=== PATIENT | male | born 1950 | race Caucasian/White ===

== ENCOUNTER → 2019-10-17 14:09 | Outpatient (CLI) | payer MEDICARE, BC, SELFPAY ==
[2019-10-17 15:57] LABS: Prostate Specific Ag, Diagnost 0 ng/mL (0.0-4.0)
== END ==
PROVIDERS: Visit Provider Urology
DX: C61 Malignant neoplasm of prostate (principal)
CPT/HCPCS: 36415; 84153

== ENCOUNTER → 2020-10-18 13:52 | Outpatient (CLI) | payer MEDICARE, BC, SELFPAY ==
[2020-10-18 15:54] LABS: Prostate Specific Ag, Diagnost < 0.064 ng/ml (0.0-4.0)
== END ==
PROVIDERS: Visit Provider Urology
DX: C61 Malignant neoplasm of prostate (principal)
CPT/HCPCS: 36415; 84153

== ENCOUNTER 2024-08-03 09:52 | Outpatient (POV) | payer MEDICARE, BC, SELFPAY ==
[2024-08-03 10:08] VITALS: BP 130/75; PULSE 62; RESP 18; O2SAT 96; BMI 30.6
--- NOTE | 2024-08-03 12:14 | EXP.PAIN.OV ---
HPI Data of Consult Patient: new to practice Consult date: 08/03/24 Requesting Physician: Stormy Canas APRN Primary Care Provider: Referral Provider, MD Consult Narrative Reason for consult: Neck pain, low back pain, leg pain, bilateral feet pain History of present illness: Mr. Benítez is a 74 year old male who presents today as a new patient. He is a referral from [facility]. Today he rates his pain a 7 out of 10. Patient does state that he has multiple pain areas including his neck and low back with radiating symptoms down his bilateral lower extremities and significant severe neuropathy symptoms in his bilateral feet. Patient states all of this has been going on for years and progressively worsened over time. Patient has been seeing the center medical director for longer than 5 years and that they did recommend to come here for additional interventions. Patient states that his bones do seem to break at the slightest injury. He states that in the past he fractured his left foot 3 times within a close proximity to 1 another. He states initially part was an injury where he fell in a hole that then he is also fractured it with just walking. Patient does state that he has a lot of injuries in the past from his service and that he has had multiple surgeries including his left knee replaced as well as had some injections. He states his last ones were about 3 years ago for his legs and knees and that they did provide significant relief and have still really been helping his knees for the last 4 years. Patient does state between all of his aches and pains that he does have the most pain related to his feet. He states that he cannot tolerate any little pressure or the simplest activity really bothers them. He states that clothing even affects them. He states that he frequently walks on his heel due to the pain. He states it is just very intense. He does state this interferes with his ability perform activities of daily living such as cooking and cleaning. 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 Patient has been tried on gabapentin and tramadol in the past however could not tolerate the gabapentin and is now on Lyrica.Patient does state that these were done by the center medical director and states that they did tell him that they could not do the scheduled medications anymore and that whether or not we could possibly take over these. Patient is interested in any help we may be able to provide. He has tried conservative treatment including oral medications, heat and ice, topicals, continued at home stretching exercise for longer than 12 weeks. His Shawn has been reviewed and is appropriate. CC: Stormy Canas APRN [facility] Disclaimer: The information contained in this section may have been updated after the patient was seen, as this information can be updated by other users. 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 (Updated 08/03/24 @ 12:19 by Stormy Canas APRN) Parkinson disease Bladder stone Peripheral neuropathy Arthritis Surgical History History of total replacement of right shoulder joint H/O thumb surgery H/O hand surgery H/O elbow surgery H/O shoulder surgery Hx of appendectomy Family History (Updated 08/03/24 @ 10:12 by Liberty Escudero RN) Other Cancer Gout Social History (Updated 08/03/24 @ 10:32 by Liberty Escudero RN) Smoking Status: Former smoker tobacco type: pipe alcohol intake: former substance use type: denies use current occupational status: retired Travel in the last 8 weeks: None household members: spouse housing: house Review of Systems Review of Systems Review of systems:: pertinent systems reviewed and negative unless documented below Review of systems (narrative): Review of Systems: General: No recent weight changes, no fever, no sleep disturbances Respiratory: No cough, no shortness of air, no recurring pulmonary infections Cardiovascular/peripheral vascular: No chest pain, no palpitations, no edema, no shortness of breath Gastrointestinal: No new onset incontinence, normal bowel movements reported Genitourinary: No new onset incontinence Musculoskeletal: Low back pain, leg pain, bilateral feet pain Psychiatric: [Normal mood/affect] Neurological: [Denies weakness in extremities], [denies balance issues] Meds Home Medications and Allergies Home Medications ?Medication ?Instructions ?Recorded ?Confirmed ?Type aspirin 81 mg tablet,delayed 81 mg PO DAILY 10/17/19 10/18/21 History release (Adult Aspirin Regimen) carbidopa ER 61.25 mg-levodopa 245 2 cap PO TID PARKINSONS 08/03/24 08/03/24 History mg capsule,extended release (Rytary) celecoxib 100 mg capsule 100 mg PO DAILY Pain 08/03/24 08/03/24 History pregabalin 75 mg capsule 75 mg PO BID Pain 08/03/24 08/03/24 History tamsulosin 0.4 mg capsule 0.4 mg PO BID URINATION 08/03/24 08/03/24 History New Prescriptions to Start Prescriptions: Allergies Allergy/AdvReac Type Severity Reaction Status Date / Time No Known Allergies Allergy Verified 10/18/21 13:18 Objective Vital signs: Pulse Resp BP Pulse Ox O2 Del Method 62 18 130/75 96 Room Air 08/03/24 10:08 08/03/24 10:08 08/03/24 10:08 08/03/24 10:08 08/03/24 10:08 Narrative: Physical Exam: General: Alert and oriented x3, no acute distress, pleasant and cooperative Lungs: Respirations even and unlabored, symmetrical chest expansion Eyes: PERRL Musculoskeletal: Flexion and extension of bilateral feet/ankles somewhat guarded secondary to pain, [antalgic gait noted] patient had decreased sensation to light touch and decreased reflexes Neurological: Speech clear, no gross sensory deficit Assessment and Plan *Assessment and plan (1) Degenerative disc disease, lumbar: Status: Acute Category: Medical Code(s): M51.369 - Other intervertebral disc degeneration, lumbar region without mention of lumbar back pain or lower extremity pain (2) Lumbar radiculopathy: Status: Acute Category: Medical Code(s): M54.16 - Radiculopathy, lumbar region (3) Neck pain: Status: Acute Category: Medical Code(s): M54.2 - Cervicalgia (4) Peripheral neuropathy: Status: Acute Category: Medical Code(s): G62.9 - Polyneuropathy, unspecified Plan Patient is experiencing significant pain related to his peripheral neuropathy in his ankles and feet. Patient did have decreased sensation light touch and decreased reflexes. I did discuss with patient that he may benefit from bilateral posterior tibial nerve blocks. Risk and benefits were discussed with patient and he would like to proceed forward with this plan of care. Patient has tried and failed conservative therapy including continued at home stretching exercise for longer than 12 weeks. 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 We will send in a 3-month supply of pregabalin 75 mg twice daily. Patient will be scheduled for bilateral posterior tibial nerve blocks.\ Patient has been instructed to contact the clinic with any concerns before the next appointment. Dr. Lopez has reviewed this note and agrees with this plan of care. This note was dictated using voice recognition software and make contain errors or omissions. All injections are used with Lidocaine or Bupivacaine and Depo Medrol.
== END 2024-08-03 23:59 | disposition home or self-care (01) ==
PROVIDERS: Visit Provider Nurse Practitioner Family
DX: M54.2 Cervicalgia; G62.9 Polyneuropathy, unspecified; M51.16 Intervertebral disc disorders with radiculopathy, lumbar region; Z96.652 Presence of left artificial knee joint; Z73.89 Other problems related to life management difficulty; Z96.611 Presence of right artificial shoulder joint; Z87.891 Personal history of nicotine dependence
CPT/HCPCS: 99202; G0463

== ENCOUNTER 2024-09-06 10:15 | Day surgery (SDC) | payer MEDICARE, BC, SELFPAY ==
[2024-09-06 10:33] VITALS: BP 123/79; PULSE 76; RESP 16; TEMP 36.4; O2SAT 96; BMI 30.3
[2024-09-06] MEDS: LIDOCAINE 1% 5ML PF VIAL 5 ML (10:53)
[2024-09-06 10:54] VITALS: BP 130/75; PULSE 77; RESP 18; O2SAT 97
[2024-09-06] MEDS: BUPIVACAINE 0.25% 10ML INJ 25 MG IJ (10:54)
[2024-09-06] MEDS: methylPREDNISolone ACETATE 80MG/ML VIAL 80 MG (10:54)
[2024-09-06 10:57] VITALS: BP 130/75; PULSE 78; RESP 18; O2SAT 97
--- NOTE | 2024-09-06 11:05 | EXP.PAIN.PRO ---
Procedure Date: 09/06/24 Time: 11:00 Anesthesiologist:: Alex Landin CRNA Complications:: None Pre-procedure Diagnosis:: Bilateral foot pain. Post-procedure Diagnosis:: Same. Indications for Procedure:: Patient is a pleasant 74-year-old male who comes our clinic today for bilateral posterior tibial nerve blocks. Patient has a longstanding history of lower extremity pain including bilateral knee pain, as well as bilateral feet pain. Patient also was diagnosed with Parkinson's 3 years ago. He is ambulatory. However, he rates his pain 10/10 while standing. Procedure Details:: Details of procedure explained to the patient. The patient taken procedure and placed in the supine position on the fluoroscopy table. The area over the right lateral malleolus was cleansed using chlorhexidine as a cleansing solution. Using a 25-gauge inch and half needle. The right posterior tibial nerve was accessed with ease. After negative aspiration 4 cc of 1% lidocaine +40 mg of Depo-Medrol was injected. The same procedure was carried out over the left posterior tibial nerve. Patient tolerated procedure without difficulty. There are no complications Plan and Disposition:: Patient was discharged without incident.
[2024-09-06 11:06] VITALS: BP 115/75; PULSE 84; RESP 16; O2SAT 94
== END 2024-09-06 11:06 | disposition home or self-care (01) ==
PROVIDERS: PCP Family Medicine; Visit Provider Nurse Anesthetist, Certified Registered
DX: M79.672 Pain in left foot (principal); M79.671 Pain in right foot
CPT/HCPCS: 64450; J1010

== ENCOUNTER 2024-09-26 09:26 | Outpatient (POV) | payer MEDICARE, BC, SELFPAY ==
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
[2024-09-26 10:04] VITALS: BP 131/75; PULSE 89; RESP 14; O2SAT 99; BMI 53.4
== END 2024-09-26 23:59 | disposition home or self-care (01) ==
PROVIDERS: Visit Provider Nurse Practitioner Family
DX: M54.2 Cervicalgia (principal); G62.9 Polyneuropathy, unspecified; M51.16 Intervertebral disc disorders with radiculopathy, lumbar region; Z87.891 Personal history of nicotine dependence; Z73.89 Other problems related to life management difficulty
CPT/HCPCS: 99212; G0463

== ENCOUNTER 2024-10-18 12:46 | Day surgery (SDC) | payer MEDICARE, SELFPAY ==
[2024-10-18 13:05] VITALS: BP 137/89; PULSE 108; RESP 16; TEMP 36.6; O2SAT 95
[2024-10-18] MEDS: methylPREDNISolone ACETATE 80MG/ML VIAL 80 MG (13:15)
[2024-10-18 13:42] VITALS: BP 148/58; PULSE 94; RESP 16; O2SAT 97
--- NOTE | 2024-10-18 13:49 | EXP.PAIN.PRO ---
Procedure Date: 10/18/24 Time: 13:20 Anesthesiologist:: Alex Landin CRNA Complications:: None Pre-procedure Diagnosis:: Degenerative disc lumbar spine multilevels. Lumbar radiculopathy. Disc bulge lumbar spine L3-4, L4-5. Post-procedure Diagnosis:: Same. Indications for Procedure:: Patient is a pleasant 74-year-old male who comes our clinic today for lumbar epidural steroid injection at the L3-4 level. Patient describes low lumbar back pain as constant, dull, aching. Patient also reports bilateral leg radicular symptoms. He rates his pain today 6/10. Procedure Details:: Procedure: Lumbar epidural steroid injection under fluoroscopy Informed consent was obtained and the risks and benefits of the procedure were explained to the patient. The patient was taken to the procedure room and noninvasive monitors placed, including noninvasive blood pressure cuff and pulse oximeter. The back was viewed using C-arm Fluoroscopy and prepped using Chloraprep as a cleansing solution and the L3-4 interspace was palpated. Skin and subcutaneous tissues were anesthetized using lidocaine 1.5% and a 25-gauge needle. After this, an 18-gauge Touhy epidural needle was placed into the L3-4 interspace and advanced using fluoroscopic guidance and loss of resistance to air until the epidural space was encountered. After confirmation of needle placement in the epidural space, with dye, a solution containing normal saline, 3 mL and Depo-Medrol 80 mg were incrementally injected into the lumbar epidural space. The patient tolerated the procedure well with no complications. The patient was observed in the Pain Clinic and then discharged home neurologically intact. Plan and Disposition:: Patient was discharged without incident.
== END 2024-10-18 13:42 | disposition home or self-care (01) ==
LOC: SC.PAINP 12:49
PROVIDERS: Visit Provider Nurse Anesthetist, Certified Registered
DX: M51.16 Intervertebral disc disorders with radiculopathy, lumbar region (principal)
CPT/HCPCS: 62323; J1010

== ENCOUNTER 2024-10-31 11:06 | Outpatient (POV) | payer MEDICARE, BC, SELFPAY ==
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
--- NOTE | 2024-10-31 11:58 | XR_ITS ---
FINAL REPORT CLINICAL HISTORY: LBP FINDINGS: LUMBAR SPINE 5 views were obtained. There is no acute fracture. Vertebrae are normal height. There is no malalignment. There is moderate to space narrowing from L2-3 through L5-S1. There is prominent anterior osteophyte formation from L2-3 through L5-S1. There is no soft tissue abnormality. IMPRESSION: Advanced degenerative disc disease from L2-3 through L5-S1. Reviewed, Interpreted and Dictated by Uday Longo MD Transcribed by Tanya Garcia Authenticated and [facility]
[2024-10-31 13:31] VITALS: BP 103/77; PULSE 105; RESP 16; O2SAT 97
== END 2024-10-31 23:59 | disposition home or self-care (01) ==
PROVIDERS: PCP Family Medicine; Visit Provider Nurse Practitioner Family
DX: M47.816 Spondylosis without myelopathy or radiculopathy, lumbar region (principal); M51.369 Other intervertebral disc degeneration, lumbar region without mention of lumbar back pain or lower extremity pain; Z96.611 Presence of right artificial shoulder joint; Z87.891 Personal history of nicotine dependence; Z73.89 Other problems related to life management difficulty
CPT/HCPCS: 72110; 99212; G0463

== ENCOUNTER 2024-11-15 09:03 | Day surgery (SDC) | payer MEDICARE, BC, SELFPAY ==
[2024-11-15 10:01] VITALS: BP 109/74; PULSE 95; RESP 16; TEMP 36.7; O2SAT 97; BMI 30.2
[2024-11-15 10:13] VITALS: BP 126/84; PULSE 63; RESP 16; O2SAT 97
--- NOTE | 2024-11-15 10:18 | P.PCN_ITS ---
Procedure Date: 11/15/24 Time: 10:00 Anesthesiologist:: Alex Landin CRNA Complications:: None Pre-procedure Diagnosis:: Degenerative disc lumbar spine multilevels. Lumbar radiculopathy. Lumbar spondylosis. Multilevel lumbar facet arthropathy. Post-procedure Diagnosis:: Same. Indications for Procedure:: Patient is a very pleasant 74-year-old male who comes our clinic today for ROUND ONE lumbar medial branch blocks/facet injections at L2-3, L3-4 level. Patient describes low lumbar back pain as constant, dull, aching. He rates his pain 8/10. Procedure Details:: Informed consent was obtained and the risk and benefits of the procedure was explained to the patient. Patient was taken to the procedure room where noninvasive monitors were placed, including noninvasive blood pressure cuff as well as pulse oximeter. The area over the lumbar spine was cleansed using chlorhexidine as a cleansing solution. I anesthetized the skin and subcutaneous tissues with 1% Lidocaine. I placed 22-gauge spinal needles into the facet joint/ medial branches of L2-3, L3-4 bilaterally. Needle placement was confirmed with fluoroscopy. After confirmation of needle placement, each site was injected with 1 mL of 1% lidocaine and 0.25 % Marcaine and 10 mg of Depo-Medrol. A total of 80 mg of depo medrol was used for bilateral medial branch blocks of L2-3, L3- 4 bilaterally. Patient tolerated the procedure without difficulty. There were no complications. Plan and Disposition:: Patient was discharged without incident.
[2024-11-15] MEDS: LIDOCAINE 1% 5ML PF VIAL 5 ML (10:23)
[2024-11-15] MEDS: methylPREDNISolone ACETATE 80MG/ML VIAL 80 MG (10:26)
[2024-11-15] MEDS: BUPIVACAINE 0.25% 10ML INJ 25 MG IJ (10:26)
[2024-11-15 10:27] VITALS: BP 127/70; PULSE 96; RESP 18; O2SAT 98
[2024-11-15 10:33] VITALS: BP 127/70; PULSE 96; RESP 18; O2SAT 98
== END 2024-11-15 10:13 | disposition home or self-care (01) ==
PROVIDERS: PCP Family Medicine; Visit Provider Nurse Anesthetist, Certified Registered
DX: M47.816 Spondylosis without myelopathy or radiculopathy, lumbar region (principal); M51.360 Other intervertebral disc degeneration, lumbar region with discogenic back pain only
CPT/HCPCS: 64493; 64494; J1010

== ENCOUNTER 2024-11-28 14:15 | Outpatient (POV) | payer MEDICARE, BC, SELFPAY ==
[2024-11-28 14:32] VITALS: BP 124/60; PULSE 93; RESP 14; O2SAT 96; BMI 30.2
--- NOTE | 2024-11-28 14:47 | A.OFFVIS_ITS ---
[facility] Disclaimer: The information contained in this section may have been updated after the patient was seen, as this information can be updated by other users. 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 (Updated 11/28/24 @ 14:51 by Stormy Canas APRN) Parkinson disease Bladder stone Peripheral neuropathy Arthritis Surgical History History of total replacement of right shoulder joint H/O thumb surgery H/O hand surgery H/O elbow surgery H/O shoulder surgery Hx of appendectomy Family History Other Cancer Gout Social History Smoking Status: Former smoker tobacco type: pipe alcohol intake: former substance use type: denies use current occupational status: other Travel in the last 8 weeks: None household members: spouse housing: house PM Subjective & Objective Subjective Subjective:: Patient is a pleasant 74-year-old male who presents today for follow-up of lumbar branch block bilaterally L2-L3 and L3-L4 on 11/15/2024. Patient does rate his pain today a 4 or 5 out of 10. He does state that from our last appointment he has had surgery last week and is still having quite a bit of pain related to this procedure. He states that he is having a lot of pressure and some occasional sharp shooting pains. He is scheduled for follow-up with the eye doctor coming up this week and is scheduled to have his second cataracts surgery on the . Patient does state that his back is still bothering him more present on the right side into his muscles. He states that it is very hard for him to gauge how much improvement the injection did due to the eye pain and still trouble with certain movements such as bending. He does state that initially after the procedure he was sore for couple days however that did ease down and then had improvement. Patient has continued conservative treatment with minimal improvement. Patient does state that the last medication we sent in combination with the baclofen did seem to cause him urinary problems. He states that he just could not hold his bladder and had some incontinence. He states that he did discontinue taking the 2 medications together from then on. His Shawn has been reviewed and is appropriate. Review of Systems: General: No recent weight changes, no fever, no sleep disturbances Respiratory: No cough, no shortness of air, no recurring pulmonary infections Cardiovascular/peripheral vascular: No chest pain, no palpitations, no edema, no shortness of breath Gastrointestinal: No new onset incontinence, normal bowel movements reported Genitourinary: No new onset incontinence Musculoskeletal: Right-sided low back pain Psychiatric: [Normal mood/affect] Neurological: [Denies weakness in extremities], [denies balance issues] Pain at rest (0-10 scale): 5 Objective Objective:: Physical Exam: General: Alert and oriented x3, no acute distress, pleasant and cooperative Lungs: Respirations even and unlabored, symmetrical chest expansion Eyes: PERRL Musculoskeletal: Flexion and extension of lumbar [spine] somewhat guarded secondary to pain, [antalgic gait noted] point tenderness along the right lumbar paraspinous muscles Neurological: Speech clear, no gross sensory deficit Has patient had previous pain injection?: Yes Percent improvement in pain since last injection: Patient unable to get percentage today Conservative treatment options previously tried: Home exercise plan Length of treatment: Longer than 12 weeks Meds Home Medications and Allergies Home Medications ?Medication ?Instructions ?Recorded ?Confirmed ?Type aspirin 81 mg tablet,delayed 81 mg PO DAILY 10/17/19 11/28/24 History release (Adult Aspirin Regimen) carbidopa ER 61.25 mg-levodopa 245 2 cap PO TID PARKINSONS 08/03/24 11/28/24 History mg capsule,extended release (Rytary) celecoxib 100 mg capsule 100 mg PO DAILY Pain 08/03/24 11/28/24 History tamsulosin 0.4 mg capsule 0.4 mg PO BID URINATION 08/03/24 11/28/24 History baclofen 10 mg tablet 10 mg PO HS #30 tabs 10/31/24 11/28/24 Rx prednisone 20 mg tablet 20 mg PO BID #10 tabs 10/31/24 11/28/24 Rx pregabalin 75 mg capsule 75 mg PO BID Pain #180 caps 10/31/24 11/28/24 Rx New Prescriptions to Start Prescriptions: Allergies Allergy/AdvReac Type Severity Reaction Status Date / Time No Known Allergies Allergy Verified 10/18/21 13:18 Assessment and Plan *Assessment and plan (1) Myofascial pain on right side: Status: Acute Category: Medical Code(s): M79.18 - Myalgia, other site (2) Degenerative disc disease, lumbar: Status: Acute Category: Medical Code(s): M51.369 - Other intervertebral disc degeneration, lumbar region without mention of lumbar back pain or lower extremity pain Plan Patient is experiencing more significant pain along the right side of his low back with limited range of motion and point tenderness along his right lumbar paraspinous muscles. I did discuss with the patient that he may benefit from a trigger point injections all along this muscle group. Risk and benefits were discussed with patient and he would like to proceed forward with this plan of care. Patient has continued conservative treatment including oral medication, heat and ice, topicals, at home stretching exercise for longer than 12 weeks with minimal changes. Patient will be scheduled for trigger point injections of his right lumbar paraspinous muscles. These will be done without fluoroscopic guidance or ultrasound. Patient has been instructed to contact the clinic with any concerns before the next appointment. Dr. Lopez has reviewed this note and agrees with this plan of care. This note was dictated using voice recognition software and make contain errors or omissions. All injections are used with Lidocaine, Bupivacaine and Depo Medrol. Occasionally urine drug screen is needed to verify patient's compliance with our office pain contract. This is ordered based off specific treatments related to chronic pain with the potential to abuse certain medications.
== END 2024-11-28 23:59 | disposition home or self-care (01) ==
LOC: SC.PAIN 14:20
PROVIDERS: PCP Family Medicine; Visit Provider Nurse Practitioner Family
DX: M79.18 Myalgia, other site (principal); M51.369 Other intervertebral disc degeneration, lumbar region without mention of lumbar back pain or lower extremity pain; Z87.891 Personal history of nicotine dependence
CPT/HCPCS: 99212; G0463

== ENCOUNTER 2024-12-02 15:38 | Day surgery (SDC) | payer MEDICARE, BC, SELFPAY ==
--- NOTE | 2024-12-02 15:50 | EXP.PAIN.PRO ---
Procedure Date: 12/02/24 Time: 15:50 Anesthesiologist:: Stormy Canas APRN Complications:: None Pre-procedure Diagnosis:: Degenerative disc disease of lumbar spine with lumbar radiculopathy symptoms, neck pain, peripheral neuropathy, myofascial pain of the right side Post-procedure Diagnosis:: Same Indications for Procedure:: Patient is a pleasant 74-year-old male who presents today for injections of his right lumbar paraspinous muscles. Today he rates his pain a 4 or 5 out of 10. He denies any new trauma or injury. He does state that he is having pain into both sides of his low back muscles. Patient has tried and failed conservative therapy including continued at home stretching exercise for longer than 12 weeks. His Shawn has been reviewed and is appropriate. Physical Exam: General: Alert and oriented x3, no acute distress, pleasant and cooperative Lungs: Respirations even and unlabored, symmetrical chest expansion Eyes: PERRL Musculoskeletal: Flexion and extension of lumbar [spine] somewhat guarded secondary to pain, [antalgic gait noted] point tenderness along bilateral lumbar paraspinous muscles Neurological: Speech clear, no gross sensory deficit Procedure Details:: Patient did have noninvasive blood pressure cuff applied and pulse oximeter. Patient was placed in a sitting position and palpated along his bilateral trapezius and rhomboid muscles. The skin was cleansed with isopropyl alcohol and areas of point tenderness were marked and using a sterile 25-gauge needle approximately 10 mL of 0. 2 5% bupivacaine, 1% lidocaine and 80 mg Depo-Medrol were incrementally injected into his bilateral lumbar paraspinous muscles. Needle was removed and sterile bandages applied. Patient tolerated the procedure well with no complications and was discharged neurologically intact. Plan and Disposition:: Patient tolerated the procedure well with no complications and was discharged neurologically intact. Patient did end up having tenderness on both his left and right lumbar paraspinous muscles. We did inject bilaterally and update the consent. Patient will return to clinic in 2 weeks for reevaluation of symptoms and plan of care. Patient has been instructed to contact the clinic with any concerns before the next appointment. Dr. Lopez has reviewed this note and agrees with this plan of care. This note was dictated using voice recognition software and make contain errors or omissions. All injections are used with Lidocaine, Bupivacaine and Depo Medrol. Occasionally urine drug screen is needed to verify patient's compliance with our office pain contract. This is ordered based off specific treatments related to chronic pain with the potential to abuse certain medications.
[2024-12-02 15:52] VITALS: BP 136/92; PULSE 79; RESP 16; TEMP 36.9; O2SAT 98; BMI 30.2
[2024-12-02 16:09] VITALS: BP 135/68; PULSE 67; RESP 16; O2SAT 93
[2024-12-02] MEDS: methylPREDNISolone ACETATE 80MG/ML VIAL 80 MG (16:57)
[2024-12-02] MEDS: LIDOCAINE 1% 5ML PF VIAL 5 ML (16:57)
[2024-12-02] MEDS: BUPIVACAINE 0.25% 10ML INJ 25 MG IJ (16:57)
== END 2024-12-02 16:09 | disposition home or self-care (01) ==
PROVIDERS: PCP Family Medicine; Visit Provider Nurse Practitioner Family
DX: M51.16 Intervertebral disc disorders with radiculopathy, lumbar region (principal); M54.2 Cervicalgia; G62.9 Polyneuropathy, unspecified; M79.18 Myalgia, other site
CPT/HCPCS: 20553; J1010

== ENCOUNTER 2024-12-14 13:52 | Outpatient (POV) | payer MEDICARE, BC, SELFPAY ==
[2024-12-14 14:15] VITALS: BP 137/82; PULSE 80; RESP 16; O2SAT 98; BMI 30.2
--- NOTE | 2024-12-14 14:21 | A.OFFVIS_ITS ---
[facility] Disclaimer: The information contained in this section may have been updated after the patient was seen, as this information can be updated by other users. 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 Parkinson disease Bladder stone Peripheral neuropathy Arthritis Surgical History History of total replacement of right shoulder joint H/O thumb surgery H/O hand surgery H/O elbow surgery H/O shoulder surgery Hx of appendectomy Family History Other Cancer Gout Social History Smoking Status: Former smoker tobacco type: pipe alcohol intake: former substance use type: denies use current occupational status: other Travel in the last 8 weeks: None household members: spouse housing: house PM Subjective & Objective Subjective Subjective:: Patient is a pleasant 74-year-old male who presents today for follow-up of trigger point injections of his right lumbar paraspinous muscles. Today he rates his pain a 4 out of 10. He states that he did take about 3 days for the injections to really kick in and he states he had probably 40% but he is writing more about 20% currently ongoing improvement. He states that the sharp pain sensations has gone away and that he is now just: It is a dull ache that is very manageable and feels much better. He does state that he ended up having his other cataracts surgery last Thursday and everything went well with it. He denies any other changes. His Shawn has been reviewed and is appropriate. Review of Systems: General: No recent weight changes, no fever, no sleep disturbances Respiratory: No cough, no shortness of air, no recurring pulmonary infections Cardiovascular/peripheral vascular: No chest pain, no palpitations, no edema, no shortness of breath Gastrointestinal: No new onset incontinence, normal bowel movements reported Genitourinary: No new onset incontinence Musculoskeletal: Low back pain Psychiatric: [Normal mood/affect] Neurological: [Denies weakness in extremities], [denies balance issues] Pain at rest (0-10 scale): 4 Objective Objective:: Physical Exam: General: Alert and oriented x3, no acute distress, pleasant and cooperative Lungs: Respirations even and unlabored, symmetrical chest expansion Eyes: PERRL Musculoskeletal: Flexion and extension of lumbar [spine] somewhat guarded secondary to pain, [antalgic gait noted] Neurological: Speech clear, no gross sensory deficit Has patient had previous pain injection?: Yes Percent improvement in pain since last injection: 40% Conservative treatment options previously tried: Home exercise plan Length of treatment: Longer than 12 weeks Meds Home Medications and Allergies Home Medications ?Medication ?Instructions ?Recorded ?Confirmed ?Type aspirin 81 mg tablet,delayed 81 mg PO DAILY 10/17/19 12/14/24 History release (Adult Aspirin Regimen) carbidopa ER 61.25 mg-levodopa 245 2 cap PO TID PARKINSONS 08/03/24 12/14/24 History mg capsule,extended release (Rytary) celecoxib 100 mg capsule 100 mg PO DAILY Pain 08/03/24 12/14/24 History tamsulosin 0.4 mg capsule 0.4 mg PO BID URINATION 08/03/24 12/14/24 History baclofen 10 mg tablet 10 mg PO HS #30 tabs 10/31/24 12/14/24 Rx prednisone 20 mg tablet 20 mg PO BID #10 tabs 10/31/24 12/14/24 Rx pregabalin 75 mg capsule 75 mg PO BID Pain #180 caps 10/31/24 12/14/24 Rx New Prescriptions to Start Prescriptions: Allergies Allergy/AdvReac Type Severity Reaction Status Date / Time No Known Allergies Allergy Verified 10/18/21 13:18 Assessment and Plan *Assessment and plan (1) Myofascial pain on right side: Status: Acute Category: Medical Code(s): M79.18 - Myalgia, other site (2) Lumbar facet arthropathy: Status: Acute Category: Medical Code(s): M47.816 - Spondylosis without myelopathy or radiculopathy, lumbar region (3) Degenerative disc disease, lumbar: Status: Acute Category: Medical Code(s): M51.369 - Other intervertebral disc degeneration, lumbar region without mention of lumbar back pain or lower extremity pain Plan Patient has had significant improvement following his trigger point injections and is no longer experiencing the sharp sudden pain there in his low back. Patient is much more manageable and feels overall more functional. Patient will return to clinic in 1 month. Patient has been instructed to contact the clinic with any concerns before the next appointment. Dr. Lopez has reviewed this note and agrees with this plan of care. This note was dictated using voice recognition software and make contain errors or omissions. All injections are used with Lidocaine, Bupivacaine and Depo Medrol. Occasionally urine drug screen is needed to verify patient's compliance with our office pain contract. This is ordered based off specific treatments related to chronic pain with the potential to abuse certain medications.
== END 2024-12-14 23:59 | disposition home or self-care (01) ==
LOC: SC.PAIN 13:56
PROVIDERS: Visit Provider Nurse Practitioner Family
DX: M79.18 Myalgia, other site (principal); M47.816 Spondylosis without myelopathy or radiculopathy, lumbar region; M51.369 Other intervertebral disc degeneration, lumbar region without mention of lumbar back pain or lower extremity pain; Z96.611 Presence of right artificial shoulder joint; Z87.891 Personal history of nicotine dependence
CPT/HCPCS: 99212; G0463

== ENCOUNTER 2024-12-19 14:19 | Outpatient (POV) | payer MEDICARE, BC, SELFPAY ==
--- NOTE | 2024-12-19 14:36 | A.OFFVIS_ITS ---
[facility] Disclaimer: The information contained in this section may have been updated after the patient was seen, as this information can be updated by other users. 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 (Updated 12/19/24 @ 14:38 by Stormy Canas APRN) Parkinson disease Bladder stone Peripheral neuropathy Arthritis Surgical History History of total replacement of right shoulder joint H/O thumb surgery H/O hand surgery H/O elbow surgery H/O shoulder surgery Hx of appendectomy Family History Other Cancer Gout Social History Smoking Status: Former smoker tobacco type: pipe alcohol intake: former substance use type: denies use current occupational status: other Travel in the last 8 weeks: None household members: spouse housing: house Have you lived/traveled outside [place] in past 30 days?: No Contact w/someone who lives/traveled outside [place] past 30 days?: No Exposure to someone with infectious disease in past 14 days?: No Do you have a fever (greater than 100.4 F or 38 C)?: No Have you tested positive for COVID-19: No Exposed to someone with COVID-19 in past 14 days?: No Do you have a sore throat?: No Do you have a cough?: No Do you have any weakness?: No Do you have any diarrhea?: No Are you experiencing any unusual bleeding?: No Do you have any muscle aches/pain?: No Do you have any abdominal pain?: No Are you experiencing loss of taste or smell?: No PM Subjective & Objective Subjective Subjective:: Patient is a pleasant 74-year-old male who presents today due to worsening pain. He rates his pain a 9 out of 10. He states that on Thursday night he was working on a gate for his horses and that he ended up fixing the gate and walked away only to end up tripping on a roots or some other object in the ground. He states that he ended up trying to catch himself but hit himself in the face with his hand and landed on his abdomen. He states that he ended up having quite a bit of soreness and pain yesterday and today. His blood pressure is increased today and feels like that is related to the fall. Patient does not necessarily think that he is fractured or broken anything however feels like he may have just tensed up causing worsening back pain. Patient is complaining of overall back pain in general. Patient was tried on Celebrex and baclofen in the past. Patient states he did have his other cataract surgery and does not feel like his vision has been affected but states he did have a little dizziness but believes that it is related to him hitting himself in the face. His Shawn has been reviewed and is appropriate. Review of Systems: General: No recent weight changes, no fever, no sleep disturbances Respiratory: No cough, no shortness of air, no recurring pulmonary infections Cardiovascular/peripheral vascular: No chest pain, no palpitations, no edema, no shortness of breath Gastrointestinal: No new onset incontinence, normal bowel movements reported Genitourinary: No new onset incontinence Musculoskeletal: Low back pain Psychiatric: [Normal mood/affect] Neurological: [Denies weakness in extremities], [denies balance issues] Pain at rest (0-10 scale): 9 Objective Objective:: Physical Exam: General: Alert and oriented x3, no acute distress, pleasant and cooperative Lungs: Respirations even and unlabored, symmetrical chest expansion Eyes: PERRL Musculoskeletal: Flexion and extension of lumbar [spine] somewhat guarded secondary to pain, [antalgic gait noted] Neurological: Speech clear, no gross sensory deficit Has patient had previous pain injection?: No Conservative treatment options previously tried: Home exercise plan Length of treatment: Longer than 12 weeks Meds Home Medications and Allergies Home Medications ?Medication ?Instructions ?Recorded ?Confirmed ?Type aspirin 81 mg tablet,delayed 81 mg PO DAILY 10/17/19 12/14/24 History release (Adult Aspirin Regimen) carbidopa ER 61.25 mg-levodopa 245 2 cap PO TID PARKINSONS 08/03/24 12/14/24 History mg capsule,extended release (Rytary) celecoxib 100 mg capsule 100 mg PO DAILY Pain 08/03/24 12/14/24 History tamsulosin 0.4 mg capsule 0.4 mg PO BID URINATION 08/03/24 12/14/24 History baclofen 10 mg tablet 10 mg PO HS #30 tabs 10/31/24 12/14/24 Rx prednisone 20 mg tablet 20 mg PO BID #10 tabs 10/31/24 12/14/24 Rx pregabalin 75 mg capsule 75 mg PO BID Pain #180 caps 10/31/24 12/14/24 Rx New Prescriptions to Start Prescriptions: Allergies Allergy/AdvReac Type Severity Reaction Status Date / Time No Known Allergies Allergy Verified 10/18/21 13:18 Assessment and Plan *Assessment and plan (1) Low back pain: Status: Acute Category: Medical Code(s): M54.50 - Low back pain, unspecified Plan I did discuss at length with the patient that I do believe it could just be more muscle tension related to him tensing up before his fall. I have counseled him that we are still less than 72 hours out from his fall and that the pain should start to slowly improve. I did certified travel counselor him that I would like to see him back next week to confirm that the pain has gotten better and if not we will plan on ordering updated imaging. I will send in a 5-day dose of prednisone 20 mg twice daily and a 2-week dose of tizanidine 2 mg twice daily as needed. Patient agrees with this plan of care. Patient will follow-up with our office next week. Patient has been instructed to contact the clinic with any concerns before the next appointment. Dr. Lopez has reviewed this note and agrees with this plan of care. This note was dictated using voice recognition software and make contain errors or omissions. All injections are used with Lidocaine, Bupivacaine and Depo Medrol. Occasionally urine drug screen is needed to verify patient's compliance with our office pain contract. This is ordered based off specific treatments related to chronic pain with the potential to abuse certain medications.
[2024-12-19 15:58] VITALS: BP 140/90; PULSE 88; RESP 16; O2SAT 96; BMI 30.2
== END 2024-12-19 23:59 | disposition home or self-care (01) ==
PROVIDERS: PCP Neurological Surgery; Visit Provider Nurse Practitioner Family
DX: M54.50 Low back pain, unspecified (principal); Z96.611 Presence of right artificial shoulder joint; Z87.891 Personal history of nicotine dependence
CPT/HCPCS: 99212; G0463

== ENCOUNTER 2025-01-13 13:35 | Outpatient (POV) | payer MEDICARE, BC, SELFPAY ==
[2025-01-13 14:34] VITALS: BP 124/74; PULSE 78; RESP 14; O2SAT 96; BMI 30.3
--- NOTE | 2025-01-13 15:13 | EXP.PAIN.SOA ---
[facility] Disclaimer: The information contained in this section may have been updated after the patient was seen, as this information can be updated by other users. 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 Parkinson disease Bladder stone Peripheral neuropathy Arthritis Surgical History History of total replacement of right shoulder joint H/O thumb surgery H/O hand surgery H/O elbow surgery H/O shoulder surgery Hx of appendectomy Family History Other Cancer Gout Social History Smoking Status: Former smoker tobacco type: pipe alcohol intake: former substance use type: denies use current occupational status: other Travel in the last 8 weeks: None household members: spouse housing: house PM Subjective & Objective Subjective Subjective:: Patient is a pleasant 74-year-old male who presents today for follow-up. He does rate his pain at a 3 out of 10. Patient does state from the last time we saw him last month that he has been having to deal with bronchitis. He states that initially on Thursday last week he was having significant coughing however denied any fever. He states by Thursday it had progressively worsened and he felt like he could not breathe. He ultimately ended up coming in to the ER where he was experiencing hot flashes and ended up having a temperature almost 203. Patient states they do have him on a lot of medications for the bronchitis including inhalers. He states he is feeling a little bit better however is still having some related issues. He does state that he has not been using the medication we prescribed while he is taking the medication for the bronchitis. At our last visit he was given tizanidine 2 mg twice a day as needed. He does not recall any side effects. His Shawn has been reviewed and is appropriate. Review of Systems: General: No recent weight changes, no fever, no sleep disturbances Respiratory: No cough, no shortness of air, no recurring pulmonary infections Cardiovascular/peripheral vascular: No chest pain, no palpitations, no edema, no shortness of breath Gastrointestinal: No new onset incontinence, normal bowel movements reported Genitourinary: No new onset incontinence Musculoskeletal: Low back pain Psychiatric: [Normal mood/affect] Neurological: [Denies weakness in extremities], [denies balance issues] Pain at rest (0-10 scale): 3 Objective Objective:: Physical Exam: General: Alert and oriented x3, no acute distress, pleasant and cooperative Lungs: Respirations even and unlabored, symmetrical chest expansion Eyes: PERRL Musculoskeletal: Flexion and extension of lumbar [spine] somewhat guarded secondary to pain, [antalgic gait noted] Neurological: Speech clear, no gross sensory deficit Has patient had previous pain injection?: No Conservative treatment options previously tried: Home exercise plan Length of treatment: Longer than 12 weeks Meds Home Medications and Allergies Home Medications ?Medication ?Instructions ?Recorded ?Confirmed ?Type aspirin 81 mg tablet,delayed 81 mg PO DAILY 10/17/19 01/13/25 History release (Adult Aspirin Regimen) carbidopa ER 61.25 mg-levodopa 245 2 cap PO TID PARKINSONS 08/03/24 01/13/25 History mg capsule,extended release (Rytary) celecoxib 100 mg capsule 100 mg PO DAILY Pain 08/03/24 01/13/25 History tamsulosin 0.4 mg capsule 0.4 mg PO BID URINATION 08/03/24 01/13/25 History baclofen 10 mg tablet 10 mg PO HS #30 tabs 10/31/24 01/13/25 Rx prednisone 20 mg tablet 20 mg PO BID #10 tabs 10/31/24 01/13/25 Rx pregabalin 75 mg capsule 75 mg PO BID Pain #180 caps 10/31/24 01/13/25 Rx prednisone 20 mg tablet 20 mg PO BID #10 tabs 12/19/24 01/13/25 Rx tizanidine 2 mg tablet 2 mg PO BID #28 tabs 12/19/24 01/13/25 Rx New Prescriptions to Start Prescriptions: Allergies Allergy/AdvReac Type Severity Reaction Status Date / Time No Known Allergies Allergy Verified 10/18/21 13:18 Assessment and Plan *Assessment and plan (1) Low back pain: Status: Acute Category: Medical Code(s): M54.50 - Low back pain, unspecified (2) Myofascial pain on right side: Status: Acute Category: Medical Code(s): M79.18 - Myalgia, other site (3) Lumbar facet arthropathy: Status: Acute Category: Medical Code(s): M47.816 - Spondylosis without myelopathy or radiculopathy, lumbar region Plan Patient was counseled that we will wait until he is completely done with his medications related to the bronchitis. Patient was counseled that if he starts experiencing worsening pain and needs to see us sooner to feel free to call us and let us know. Patient will return to clinic in 1 month. Patient has been instructed to contact the clinic with any concerns before the next appointment. Dr. Lopez has reviewed this note and agrees with this plan of care. This note was dictated using voice recognition software and make contain errors or omissions. All injections are used with Lidocaine, Bupivacaine and Depo Medrol. Occasionally urine drug screen is needed to verify patient's compliance with our office pain contract. This is ordered based off specific treatments related to chronic pain with the potential to abuse certain medications.
== END 2025-01-13 23:59 | disposition home or self-care (01) ==
LOC: SC.PAIN 13:38
PROVIDERS: Visit Provider Nurse Practitioner Family
DX: M54.50 Low back pain, unspecified (principal); M79.18 Myalgia, other site; M47.816 Spondylosis without myelopathy or radiculopathy, lumbar region; Z87.891 Personal history of nicotine dependence
CPT/HCPCS: 99212; G0463

== ENCOUNTER 2025-02-10 14:01 | Outpatient (POV) | payer MEDICARE, BC, SELFPAY ==
[2025-02-10 14:12] VITALS: BP 126/68; PULSE 82; RESP 16; O2SAT 95; BMI 31.1
--- NOTE | 2025-02-10 14:49 | EXP.PAIN.SOA ---
[facility] Disclaimer: The information contained in this section may have been updated after the patient was seen, as this information can be updated by other users. 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 (Updated 02/10/25 @ 14:51 by Stormy Canas APRN) Parkinson disease Bladder stone Peripheral neuropathy Arthritis Surgical History History of total replacement of right shoulder joint H/O thumb surgery H/O hand surgery H/O elbow surgery H/O shoulder surgery Hx of appendectomy Family History Other Cancer Gout Social History Smoking Status: Former smoker tobacco type: pipe alcohol intake: former substance use type: denies use current occupational status: other Travel in the last 8 weeks?: None household members: spouse housing: house PM Subjective & Objective Subjective Subjective:: Patient is a pleasant 67-year-old male who ended up being a lumbar epidural steroid junction L4-L5 patient is a pleasant 74-year-old male who presents today for worsening low back pain. 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 Patient does state that it is all across to his low back but does also come in and around his upper shoulder blade area. Patient does state that upper pain is worse than the low back and does interfere with his ability perform activities of daily living such as cooking and cleaning. Patient is interested in options for this pain. He is prescribed tizanidine 2 mg twice a day as needed however states he does not have any refills on this. His Shawn has been reviewed and is appropriate. Review of Systems: General: No recent weight changes, no fever, no sleep disturbances Respiratory: No cough, no shortness of air, no recurring pulmonary infections Cardiovascular/peripheral vascular: No chest pain, no palpitations, no edema, no shortness of breath Gastrointestinal: No new onset incontinence, normal bowel movements reported Genitourinary: No new onset incontinence Musculoskeletal: Low back pain, mid back pain, scapular pain Psychiatric: [Normal mood/affect] Neurological: [Denies weakness in extremities], [denies balance issues] Pain at rest (0-10 scale): 6 Objective Objective:: Physical Exam: General: Alert and oriented x3, no acute distress, pleasant and cooperative Lungs: Respirations even and unlabored, symmetrical chest expansion Eyes: PERRL Musculoskeletal: Flexion and extension of thoracic [spine] somewhat guarded secondary to pain, [antalgic gait noted] point tenderness along thoracic rhomboid and thoracic paraspinous/latissimus muscles bilaterally, patient did also have a positive lumbar Kemps test Neurological: Speech clear, no gross sensory deficit Has patient had previous pain injection?: No Conservative treatment options previously tried: Home exercise plan Length of treatment: Longer than 12 weeks Meds Home Medications and Allergies Home Medications ?Medication ?Instructions ?Recorded ?Confirmed ?Type celecoxib 100 mg capsule 100 mg PO DAILY Pain 08/03/24 02/10/25 History tamsulosin 0.4 mg capsule 0.4 mg PO BID URINATION 08/03/24 02/10/25 History tizanidine 2 mg tablet 2 mg PO BID #28 tabs 12/19/24 02/10/25 Rx carbidopa ER 61.25 mg-levodopa 245 2 cap PO TID PARKINSONS #540 caps 01/17/25 02/10/25 Rx mg capsule,extended release (Rytary) pregabalin 75 mg capsule 75 mg PO BID #180 caps 02/06/25 02/10/25 Rx New Prescriptions to Start Prescriptions: Allergies Allergy/AdvReac Type Severity Reaction Status Date / Time aspirin (From [facility] Aspirin) Allergy Verified 01/17/25 13:20 Assessment and Plan *Assessment and plan (1) Myofascial pain: Status: Acute Category: Medical Code(s): M79.18 - Myalgia, other site (2) Lumbar facet arthropathy: Status: Acute Category: Medical Code(s): M47.816 - Spondylosis without myelopathy or radiculopathy, lumbar region (3) Degenerative disc disease, lumbar: Status: Acute Category: Medical Code(s): M51.369 - Other intervertebral disc degeneration, lumbar region without mention of lumbar back pain or lower extremity pain Plan I did discuss with the patient that he does have symptoms consistent with myofascial pain and would benefit from trigger point injections of his bilateral rhomboid and bilateral thoracic paraspinous muscles. Risk and benefits were discussed with the patient and he would like to proceed forward with this plan of care. Patient will be refilled on his tizanidine and also be given a prescription of lidocaine 5% patches. Patient will be scheduled for trigger point injections of his bilateral rhomboid and bilateral thoracic paraspinous/latissimus muscles. Patient has tried and failed conservative therapy including oral medications, heat and ice, topicals, at home exercises and stretching for longer than 12 weeks. Patient has had chronic pain in these areas for longer than 6 months. I did also discussed with patient in future we will see about possible facet injections at a later time if he continues to have the low back pain. Patient agrees with this plan of care. Patient has been instructed to contact the clinic with any concerns before the next appointment. Dr. Lopez has reviewed this note and agrees with this plan of care. This note was dictated using voice recognition software and make contain errors or omissions. All injections are used with Lidocaine, Bupivacaine and dexamethasone. Occasionally urine drug screen is needed to verify patient's compliance with our office pain contract. This is ordered based off specific treatments related to chronic pain with the potential to abuse certain medications.
== END 2025-02-10 23:59 | disposition home or self-care (01) ==
PROVIDERS: Visit Provider Nurse Practitioner Family
DX: M79.18 Myalgia, other site (principal); M47.816 Spondylosis without myelopathy or radiculopathy, lumbar region; M51.369 Other intervertebral disc degeneration, lumbar region without mention of lumbar back pain or lower extremity pain; Z96.611 Presence of right artificial shoulder joint; Z87.891 Personal history of nicotine dependence; Z73.89 Other problems related to life management difficulty
CPT/HCPCS: 99212; G0463

== ENCOUNTER 2025-02-14 08:41 | Day surgery (SDC) | payer MEDICARE, SELFPAY ==
[2025-02-14 08:49] VITALS: BP 120/70; PULSE 73; RESP 18; O2SAT 96; BMI 30.3
[2025-02-14 09:15] VITALS: BP 109/61; PULSE 86; RESP 18; O2SAT 97
--- NOTE | 2025-02-14 09:20 | P.HP_ITS ---
History of Present Illness *Admission Date: 02/14/25 *Reason for visit:: Trigger point injections: Myofascial pain *History of present illness: Myofascial pain [facility] Disclaimer: The information contained in this section may have been updated after the patient was seen, as this information can be updated by other users. 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 (Updated 02/10/25 @ 14:51 by Stormy Canas APRN) Parkinson disease Bladder stone Peripheral neuropathy Arthritis Surgical History History of total replacement of right shoulder joint H/O thumb surgery H/O hand surgery H/O elbow surgery H/O shoulder surgery Hx of appendectomy Family History Other Cancer Gout Social History Smoking Status: Former smoker tobacco type: pipe alcohol intake: former substance use type: denies use current occupational status: other Travel in the last 8 weeks?: None household members: spouse housing: house Have you lived/traveled outside [place] in past 30 days?: No Contact w/someone who lives/traveled outside [place] past 30 days?: No Exposure to someone with infectious disease in past 14 days?: No Do you have a fever (greater than 100.4 F or 38 C)?: No Have you tested positive for COVID-19?: No Exposed to someone with COVID-19 in past 14 days?: No Do you have a sore throat?: No Do you have a cough?: No Do you have any weakness?: No Do you have any diarrhea?: No Are you experiencing any unusual bleeding?: No Do you have any muscle aches/pain?: No Do you have any abdominal pain?: No Are you experiencing loss of taste or smell?: No Other 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 Have you received the Flu Vaccine for this season: Yes Have you received the Pneumonia Vaccine: Yes Review of Systems Review of Systems Review of systems:: pertinent systems reviewed and negative unless documented below Review of systems (narrative): Review of Systems: General: No recent weight changes, no fever, no sleep disturbances Respiratory: No cough, no shortness of air, no recurring pulmonary infections Cardiovascular/peripheral vascular: No chest pain, no palpitations, no edema, no shortness of breath Gastrointestinal: No new onset incontinence, normal bowel movements reported Genitourinary: No new onset incontinence Musculoskeletal: Mid back pain Psychiatric: [Normal mood/affect] Neurological: [Denies weakness in extremities], [denies balance issues] Meds Home Medications and Allergies Home Medications ?Medication ?Instructions ?Recorded ?Confirmed ?Type celecoxib 100 mg capsule 100 mg PO DAILY Pain 08/03/24 02/10/25 History tamsulosin 0.4 mg capsule 0.4 mg PO BID URINATION 08/03/24 02/10/25 History carbidopa ER 61.25 mg-levodopa 245 2 cap PO TID PARKINSONS #540 caps 01/17/25 02/10/25 Rx mg capsule,extended release (Rytary) pregabalin 75 mg capsule 75 mg PO BID #180 caps 02/06/25 02/10/25 Rx lidocaine 5 % topical patch 1 patch topical DAILY #30 ea 02/10/25 Rx tizanidine 2 mg tablet 2 mg PO BID #60 tabs 02/10/25 Rx New Prescriptions to Start Prescriptions: Allergies Allergy/AdvReac Type Severity Reaction Status Date / Time aspirin (From [facility] Aspirin) Allergy Verified 01/17/25 13:20 Exam Constitutional Constitutional: no acute distress *Routine HEENT Exam Head: Present normocephalic and atraumatic Eye: Present PERRL ENT: Present mucous membranes moist *Routine Neck Exam Neck: Present supple *Routine Respiratory Exam Respiratory: Present CTA bilaterally *Routine Cardiovascular Exam Cardiovascular: Present RRR *Routine Abdominal Exam Abdominal: Present soft *Routine Rectal Exam Rectal:: deferred *Routine Genitalia Exam Genitalia:: normal male Routine Back/Spine/Pelvis Exam Back/Spine: Present pain with flexion *Routine Skin Exam Skin: Present intact and warm *Routine Neurological Exam Neurological: Present alert and oriented X3 Routine Psychiatric Exam Psychiatric: Present normal affect and normal thought process Assessment and Plan *Assessment and plan (1) Myofascial pain: Status: Acute Category: Medical Code(s): M79.18 - Myalgia, other site Plan Patient has been instructed to contact the clinic with any concerns before the next appointment. Dr. Lopez has reviewed this note and agrees with this plan of care. This note was dictated using voice recognition software and make contain errors or omissions. All injections are used with Lidocaine, Bupivacaine and dexamethasone. Occasionally urine drug screen is needed to verify patient's compliance with our office pain contract. This is ordered based off specific treatments related to chronic pain with the potential to abuse certain medications.
[2025-02-14] MEDS: LIDOCAINE 1% 5ML PF VIAL 5 ML (09:21)
[2025-02-14] MEDS: DEXAMETHASONE 10MG/ML 1ML VIAL 10 MG (09:21)
[2025-02-14] MEDS: BUPIVACAINE 0.25% 10ML INJ 25 MG IJ (09:21)
--- NOTE | 2025-02-14 09:30 | EXP.PAIN.PRO ---
Procedure Date: 02/14/25 Time: 09:30 Anesthesiologist:: Stormy Canas APRN Complications:: None Pre-procedure Diagnosis:: Degenerative disc disease, mid back pain, myofascial pain bilateral rhomboid, bilateral thoracic latissimus muscles Post-procedure Diagnosis:: Same Indications for Procedure:: Patient is a pleasant 74-year-old male who presents today for trigger point injections of his bilateral rhomboid and bilateral thoracic latissimus muscles. Today he rates his pain a 6 or 7 out of 10. Patient does state that he has not had any new falls or injuries. Patient does state that last night for what ever reason it was really bad patient states that she is very tender to touch and anytime he moves he does notice more of the pain in this region. His Shawn has been reviewed and is appropriate. Physical Exam: General: Alert and oriented x3, no acute distress, pleasant and cooperative Lungs: Respirations even and unlabored, symmetrical chest expansion Eyes: PERRL Musculoskeletal: Flexion and extension of thoracic [spine] somewhat guarded secondary to pain, [antalgic gait noted] point tenderness along bilateral rhomboids and bilateral thoracic latissimus muscles Neurological: Speech clear, no gross sensory deficit Procedure Details:: Patient did have noninvasive blood pressure cuff applied and pulse oximeter. Patient was placed in a sitting position and palpated along bilateral rhomboid and bilateral thoracic latissimus muscles. Areas of point tenderness were marked and using a sterile 25-gauge needle approximately 10 mL of 0.25% bupivacaine, 1% lidocaine and 10 mg dexamethasone were incrementally injected into bilateral rhomboid and bilateral thoracic latissimus muscles. Needle was removed and sterile bandages applied. Patient tolerated the procedure well with no complications and was discharged neurologically intact. Plan and Disposition:: Patient tolerated the procedure well with no complications and was discharged neurologically intact. Patient will return to clinic in 2 weeks for reevaluation of symptoms and plan of care. Patient has been instructed to contact the clinic with any concerns before the next appointment. Dr. Lopez has reviewed this note and agrees with this plan of care. This note was dictated using voice recognition software and make contain errors or omissions. All injections are used with Lidocaine, Bupivacaine and dexamethasone. Occasionally urine drug screen is needed to verify patient's compliance with our office pain contract. This is ordered based off specific treatments related to chronic pain with the potential to abuse certain medications.
[2025-02-14 09:32] VITALS: BP 114/74; PULSE 79; RESP 18; O2SAT 96
== END 2025-02-14 09:32 | disposition home or self-care (01) ==
PROVIDERS: PCP Family Medicine; Visit Provider Nurse Practitioner Family
DX: M79.18 Myalgia, other site (principal); M54.9 Dorsalgia, unspecified
CPT/HCPCS: 20553; J1100

== ENCOUNTER 2025-02-20 15:36 | Outpatient (POV) | payer MEDICARE, SELFPAY ==
[2025-02-20 16:22] VITALS: BP 160/90; PULSE 82; RESP 14; O2SAT 95; BMI 31.1
--- NOTE | 2025-02-20 16:27 | A.OFFVIS_ITS ---
[facility] Disclaimer: The information contained in this section may have been updated after the patient was seen, as this information can be updated by other users. 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 (Updated 02/20/25 @ 16:29 by Stormy Canas APRN) Parkinson disease Bladder stone Peripheral neuropathy Arthritis Surgical History History of total replacement of right shoulder joint H/O thumb surgery H/O hand surgery H/O elbow surgery H/O shoulder surgery Hx of appendectomy Family History Other Cancer Gout Social History Smoking Status: Former smoker tobacco type: pipe alcohol intake: former substance use type: denies use current occupational status: other Travel in the last 8 weeks?: None household members: spouse housing: house PM Subjective & Objective Subjective Subjective:: Patient is a pleasant 74-year-old male who presents today for worsening head pain. Patient rates his pain a 9 out of 10. At our last visit we had done trigger point injections of his bilateral rhomboid and thoracic latissimus muscles. He does state that he had significant improvement following these to where his pain was just a 1 out of 10. Patient then all of a sudden started to experience worsening pain at the base of his head. He states it is a sharp intense pressure that just will not let. Patient denies any changes that would have started this. He states there is just a lot of pressure and everything he has tried nothing seems to be making improvement. Patient states that he has tried ice and topical and being mindful of certain positions. He states it is constant and no 1 particular spot causes worsening symptoms. Patient states he is interested in absolutely any improvement we can provide. He states the pain is interfering with his ability perform activities of daily living such as cooking and cleaning. His Shawn has been reviewed and is appropriate. Review of Systems: General: No recent weight changes, no fever, no sleep disturbances Respiratory: No cough, no shortness of air, no recurring pulmonary infections Cardiovascular/peripheral vascular: No chest pain, no palpitations, no edema, no shortness of breath Gastrointestinal: No new onset incontinence, normal bowel movements reported Genitourinary: No new onset incontinence Musculoskeletal: Head pain, occipital pain Psychiatric: [Normal mood/affect] Neurological: [Denies weakness in extremities], [denies balance issues] Pain at rest (0-10 scale): 9 Objective Objective:: Physical Exam: General: Alert and oriented x3, no acute distress, pleasant and cooperative Lungs: Respirations even and unlabored, symmetrical chest expansion Eyes: PERRL Musculoskeletal: Flexion and extension of cervical [spine] somewhat guarded secondary to pain, point tenderness along bilateral occipital nerve region Neurological: Speech clear, no gross sensory deficit Has patient had previous pain injection?: Yes Percent improvement in pain since last injection: 90% ongoing Conservative treatment options previously tried: Home exercise plan Length of treatment: Longer than 12 weeks Meds Home Medications and Allergies Home Medications ?Medication ?Instructions ?Recorded ?Confirmed ?Type celecoxib 100 mg capsule 100 mg PO DAILY Pain 08/03/24 02/20/25 History tamsulosin 0.4 mg capsule 0.4 mg PO BID URINATION 08/03/24 02/20/25 History carbidopa ER 61.25 mg-levodopa 245 2 cap PO TID PARKINSONS #540 caps 01/17/25 02/20/25 Rx mg capsule,extended release (Rytary) pregabalin 75 mg capsule 75 mg PO BID #180 caps 02/06/25 02/20/25 Rx lidocaine 5 % topical patch 1 patch topical DAILY #30 ea 02/10/25 02/20/25 Rx tizanidine 2 mg tablet 2 mg PO BID #60 tabs 02/10/25 02/20/25 Rx New Prescriptions to Start Prescriptions: Allergies Allergy/AdvReac Type Severity Reaction Status Date / Time aspirin (From Daren Aspirin) Allergy Verified 01/17/25 13:20 Assessment and Plan *Assessment and plan (1) Bilateral occipital neuralgia: Status: Acute Category: Medical Code(s): M54.81 - Occipital neuralgia Plan Patient is experiencing worsening pain in the base of his skull with point tenderness along his occipital nerves. Patient is rating this very severe and nothing has provided improvement. Patient has tried oral medication, heat and ice, topicals, multiple positions and stretching of his neck along with massage. Patient is stating the pain is debilitating. I did discuss with patient I do believe he would benefit from bilateral occipital nerve blocks. Risk and benefits were discussed with patient and he would like to proceed forward with this plan of care. Patient will be scheduled for bilateral occipital nerve blocks without fluoroscopic or ultrasound guidance. I will also order the patient a compounded cream. Patient has been instructed to contact the clinic with any concerns before the next appointment. Dr. Lopez has reviewed this note and agrees with this plan of care. This note was dictated using voice recognition software and make contain errors or omissions. All injections are used with Lidocaine, Bupivacaine and dexamethasone. Occasionally urine drug screen is needed to verify patient's compliance with our office pain contract. This is ordered based off specific treatments related to chronic pain with the potential to abuse certain medications.
== END 2025-02-20 23:59 | disposition home or self-care (01) ==
LOC: SC.PAIN 15:38
PROVIDERS: PCP Family Medicine; Visit Provider Nurse Practitioner Family
DX: M54.81 Occipital neuralgia (principal); F17.290 Nicotine dependence, other tobacco product, uncomplicated; Z73.89 Other problems related to life management difficulty
CPT/HCPCS: 99212; G0463

== ENCOUNTER 2025-02-22 10:12 | Emergency (ER) | payer MEDICARE, SELFPAY ==
[2025-02-22 10:24] VITALS: BP 148/90; PULSE 89; RESP 20; TEMP 36.5; O2SAT 97; BMI 30.3
--- NOTE | 2025-02-22 10:42 | ED_ITS ---
<Statement entered by Tobi Graves MD - 02/22/25 15:51> JEFERSON Attestation I was consulted by the JEFERSON, and we discussed the complexity of problems being addressed. On my independent exam patient had no swelling or tenderness to previous injection sites, reproducible occipital pain with flexion of neck have concern for possible occipital headache. Was neurovascularly intact and otherwise well-appearing. I approved the treatment and management plan for this patient's care in the emergency department, thus performing a substantial portion of the medical decision making. Tobi Graves MD Discharge Plan Disposition Patient Disposition: Home, Self-Care Condition: Good Prescriptions Prescriptions: No Action Rytary 61.25-245 mg capsule, extended release 2 cap PO TID Qty: 540 1RF pregabalin 75 mg capsule 75 mg PO BID Qty: 180 0RF tamsulosin 0.4 mg capsule 0.4 mg PO BID Patient Comments: TAKE 1 CAPSULE BY MOUTH TWICE A DAY celecoxib 100 mg capsule 100 mg PO DAILY Patient Comments: TAKE 1 CAPSULE BY MOUTH EVERY DAY lidocaine 5 % adhesive patch,medicated 1 patch topical DAILY Qty: 30 0RF Rx Instructions: leave on most painful area for up to 12 hrs tizanidine 2 mg tablet 2 mg PO BID Qty: 60 0RF Referrals Follow up/Referrals: Candelaria Braden [Primary Care Provider] - See instructions Activity Restrictions/Add. Instructions Additional Instructions/Restrictions: Follow-up with pain management as scheduled If symptoms worsen or do not improve return Follow-up with PCP Clinical Impressions Clinical Impression: Neck pain, Bilateral occipital neuralgia Instructions Patient Instructions: DI for Chronic Pain -- Adult Print Language Print Language: Czech Discharge ED Provider: Tobi Graves General Adult HPI General Chief complaint: PAIN Stated complaint: severe back pain Time Seen by Provider: 02/22/25 10:25 Mode of Arrival: Wheelchair Source of Information: Patient Description of Symptoms (Recalled from ER Triage Doc. by RN): Patient presents to ED with back/head pain. patient states he was seen by pain candidoement last thursday and received an injection for his chronic back pain. He states it did not help his pain, and was seen again on thursday. They perscribed muscle relaxer that he also had had no relief with. Patient describes the pain starting at his head and shooting down to his hips. Patient denies any head ache or recent fall. History of Present Illness HPI narrative: This 74-year-old male presents for complaints of pain at the base of the skull. Patient states he has chronic back pain for over 35 years and is seeing pain management. Patient states had trigger point injections done by pain management on Thursday and improved his chronic back pain. Patient states he woke up at 3:00 in the morning having pain at the base of his skull radiating up into his head and in his lower hip. Patient states pain comes and goes is not constant. Patient states he followed back up with pain management on Thursday and was given muscle relaxer which did not help. They have set him up for injections but is not until next week. Patient states the pain has made it hard for him to sleep or to do anything. Denies fever, weakness or headache. Patient states the pain is not related to movement or he cannot create the pain. Patient states that she has random, but when it happens and is head he can also feel it in his hip Related Data Home Medications ?Medication ?Instructions ?Recorded ?Confirmed celecoxib 100 mg capsule 100 mg PO DAILY Pain 08/03/24 02/20/25 tamsulosin 0.4 mg capsule 0.4 mg PO BID URINATION 08/03/24 02/20/25 Previous Rx's ?Medication ?Instructions ?Recorded carbidopa ER 61.25 mg-levodopa 245 2 cap PO TID PARKINSONS #540 caps 01/17/25 mg capsule,extended release (Rytary) pregabalin 75 mg capsule 75 mg PO BID #180 caps 02/06/25 lidocaine 5 % topical patch 1 patch topical DAILY #30 ea 02/10/25 tizanidine 2 mg tablet 2 mg PO BID #60 tabs 02/10/25 Allergies Allergy/AdvReac Type Severity Reaction Status Date / Time aspirin (From [facility] Aspirin) Allergy Verified 01/17/25 13:20 [facility] Disclaimer: The information contained in this section may have been updated after the patient was seen, as this information can be updated by other users. 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) Smoking Status: Never smoker alcohol intake: former substance use type: denies use current occupational status: other Travel in the last 8 weeks?: None household members: spouse housing: house Have you lived/traveled outside US in past 30 days?: No Contact w/someone who lives/traveled outside US past 30 days?: No Exposure to someone with infectious disease in past 14 days?: No Do you have a fever (greater than 100.4 F or 38 C)?: No Have you tested positive for COVID-19?: No Exposed to someone with COVID-19 in past 14 days?: No Do you have a sore throat?: No Do you have a cough?: No Do you have any weakness?: No Do you have any diarrhea?: No Are you experiencing any unusual bleeding?: No Do you have any muscle aches/pain?: No Do you have any abdominal pain?: No Are you experiencing loss of taste or smell?: No Other 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 Have you received the Flu Vaccine for this season: Yes Have you received the Pneumonia Vaccine: Yes ROS Obtained: Yes Systems reviewed as appropriate & no additional complaints except as documented Physical Exam General General appearance: alert and in no apparent distress Head Head exam: atraumatic, normocephalic and normal inspection Eye Eye exam: Present normal appearance and PERRL ENT ENT exam: Present normal exam Neck Neck exam: Present normal inspection and full ROM Respiratory Respiratory exam: Present normal lung sounds bilaterally Cardiovascular Cardiovascular exam: Present regular rate and normal rhythm Extremities Exam Extremities exam: Present normal inspection and full ROM Back Exam Back exam: Present normal inspection and full ROM Back 1 view image: 2 1. Pain Neurological Exam Neurological exam: Present alert, oriented X3, CN II-XII intact and normal gait Skin Skin exam: Present warm and intact Medical Decision Making Medical Records Medical records reviewed: Yes I reviewed the patient's medical records. Screening: Per USPSTF and CDC recommendations, given the prevalence of disease in our region, it is our hospital?s policy to screen for HIV and viral Hepatitis for all patients aged 18 and over and those with ongoing risk factors. Shawn Inquiry Pt receiving controlled substance: No Shawn was queried for this patient: No Vital Signs: 02/22/25 10:24 02/22/25 11:17 02/22/25 12:00 Temperature 97.7 F Temperature Source Oral Pulse Rate 75 63 Pulse Rate [Right Brachial] 89 Respiratory Rate 20 Blood Pressure 143/87 H 135/80 Blood Pressure [Right Arm] 148/90 H Blood Pressure Mean [Right Arm] 109 Blood Pressure Source [Right Arm] Automatic Cuff Blood Pressure Position [Right Arm] Supine 02 Sat by Pulse Oximetry 97 97 95 Oxygen Delivery Method Room Air Room Air Room Air 02/22/25 13:00 Temperature Temperature Source Pulse Rate 55 L Pulse Rate [Right Brachial] Respiratory Rate Blood Pressure 135/84 Blood Pressure [Right Arm] Blood Pressure Mean [Right Arm] Blood Pressure Source [Right Arm] Blood Pressure Position [Right Arm] 02 Sat by Pulse Oximetry 97 Oxygen Delivery Method Room Air Lab Data Lab results reviewed: Yes I reviewed the patient's lab results. Lab Results 02/22/25 11:09: WBC 8.6, RBC 4.72, Hgb 14.6, Hct 43.5, MCV 92.2, MCH 30.9, MCHC 33.6, RDW 13.0, Plt Count 239, MPV 9.6, Neut % (Auto) 73.7, Lymph % (Auto) 13.7, [place] % (Auto) 9.0, Eos % (Auto) 2.8, Baso % (Auto) 0.5, Neut # (Auto) 6.3, Lymph # (Auto) 1.2, [place] # (Auto) 0.8, Eos # (Auto) 0.2, Baso # (Auto) 0.0, Sodium 139, Potassium 4.2, Chloride 112 H, Carbon Dioxide 24, Anion Gap 7.2, BUN 19, Creatinine 1.00, Estimated Creat Clear 94, Estimated GFR 73, Est GFR ( Amer) 88, Glucose 107 H, Calcium 8.6, Total Bilirubin 0.7, AST 27, ALT 8 L, Alkaline Phosphatase 74, Total Protein 6.5, Albumin 4.1, Globulin 2.4, Albumin/Globulin Ratio 1.7 02/22/25 11:09 02/22/25 11:09 Orders (Tests/Meds): ED MEDICATIONS Generic Name Dose Route Start Last Admin Trade Name Narayanq PRN Reason Stop Dose Admin Sodium Chloride 10 ml 02/22/25 10:54 Sodium Chloride 0.9% 10ml Flush Syringe IV 03/24/25 10:53 NEEDED PRN Maintain IV Site Sodium Chloride 10 ml 02/22/25 12:27 02/22/25 12:28 Sodium Chloride 0.9% 10ml Syr (Rad Only) IV 03/24/25 12:26 10 ml NEEDED PRN Administration Maintain IV Site Discontinued Medications Generic Name Dose Route Start Last Admin Trade Name Jose PRN Reason Stop Dose Admin Acetaminophen 1,000 mg 02/22/25 10:54 02/22/25 11:06 Acetaminophen 500mg Tab PO 02/22/25 10:55 Not Given ONCE ONE Iopamidol 80 ml 02/22/25 12:27 02/22/25 12:28 Iopamidol-370 (76%);100ml Bottle IV 02/22/25 12:28 80 ml ONCE ONE Administration Ketorolac Tromethamine 15 mg 02/22/25 10:54 02/22/25 11:02 Ketorolac 30mg/Ml Vial IV 02/22/25 10:55 15 mg ONCE ONE Administration Lidocaine 1 each 02/22/25 10:54 02/22/25 11:02 Lidocaine 5% Transdermal Patch TD 02/22/25 10:55 1 each ONCE ONE Administration Methocarbamol 1,500 mg 02/22/25 10:57 02/22/25 11:02 Methocarbamol 500mg Tablet PO 02/22/25 10:58 1,500 mg ONCE ONE Administration Sodium Chloride 50 ml 02/22/25 12:27 02/22/25 12:27 0.9 % Sodium Chloride 50 Ml Vial IV 02/22/25 12:28 50 ml ONCE ONE Administration ORDERS Category Date Time Status CT angio neck Stat Cat Scan 02/22/25 10:[address] head/brain wo con Stat Cat Scan 02/22/25 10:54 Taken CBC w/Auto Diff [Complete Blood Count Auto Diff] Stat Lab 02/22/25 11:09 Completed CMP [Comprehensive Metabolic Panel] Stat Lab 02/22/25 11:09 Completed Medical Decision Narrative: In summary patient is a 74-year-old male who presents to the emergency department for evaluation of pain in the back of the head and hip status post injections done by pain management on Thursday. Patient is hemodynamically stable upon arrival, afebrile. Unremarkable physical exam. Differential diagnosis includes nerve pain, tension headache,. Initial workup will be conducted with hemodynamic labs, CT of the head, CTA of the neck. Initial inventions include muscle relaxer, lidocaine patch, Toradol patient refused Tylenol. Initial workup reviewed by me labs, CT, CTA shows no stenosis, CT brain shows mild atrophy without acute intracranial process upon repeat evaluation at 1230 patient was laying in bed sleeping when aroused states pain is much better. Given this patient is appropriate for discharge at this time will discharge home with follow-up PCP and pain management. Critical Care Critical Care Time Critical Care Time: No
--- NOTE | 2025-02-22 10:42 | PC.NURSE ---
in room talking with patient at this time.
--- NOTE | 2025-02-22 10:54 | CT_ITS ---
FINAL REPORT TECHNIQUE: NASCET technique utilized for stenosis evaluation. This study was performed with techniques to keep radiation doses as low as reasonably achievable, (ALARA). Individualized dose reduction techniques using automated exposure control or adjustment of mA and/or kV according to the patient's size were employed. CLINICAL HISTORY: pain Patient describes the pain starting at his head and shooting down to his hips. Patient denies any head ache or recent fall. FINDINGS: There is significant disc space narrowing at C3-4, C5-6, and C6-7. There are prominent anterior and posterior osteophytes at C6-7. The right vertebral artery is larger than the left. There is no evidence of soft tissue stranding or fluid connection. The carotid bifurcations are widely patent. No significant stenosis. IMPRESSION: No significant stenosis. Reviewed, Interpreted and Dictated by Uday Longo MD Transcribed by Latoya Woo Authenticated and [facility]
--- NOTE | 2025-02-22 10:54 | CT_ITS ---
FINAL REPORT TECHNIQUE: Axial CT images were performed through the head. Coronal reformatted images were submitted. This study was performed with techniques to keep radiation doses as low as reasonably achievable (ALARA). Individualized dose reduction techniques using automated exposure control or adjustment of mA and/or kV according to the patient's size were employed. CLINICAL HISTORY: pain Patient describes the pain starting at his head and shooting down to his hips. Patient denies any head ache or recent fall. COMPARISON: None FINDINGS: The head is asymmetrically positioned in the gantry. There is mild atrophy. The ventricles are normal in size. There is no evidence of hemorrhage. There is no mass or edema identified. There is no abnormal extra-axial fluid seen. The paranasal sinuses are well aerated. IMPRESSION: Mild atrophy without acute intracranial process. Reviewed, Interpreted and Dictated by Uday Longo MD Transcribed by Alejandra Ch Authenticated and [facility]
[2025-02-22] MEDS: LIDOCAINE 5% TRANSDERMAL PATCH 1 EACH TD (11:02)
[2025-02-22] MEDS: KETOROLAC 30MG/ML VIAL 15 MG IV (11:02)
[2025-02-22] MEDS: METHOCARBAMOL 500MG TABLET 1500 MG PO (11:02)
[2025-02-22 11:17] VITALS: BP 143/87; PULSE 75; O2SAT 97
[2025-02-22 11:17] LABS: Basophils % 0.5 % (0.1-2.0); Eosinophils # 0.2 Kmm3 (0.0-0.4); Eosinophils % 2.8 % (0.1-12.0); Hematocrit 43.5 % (42.0-52.0); Hemoglobin 14.6 g/dL (14.1-18.0); Immature Granulocytes # 0.03 10^3uL; Immature Granulocytes % 0.3 %; Lymphocytes # 1.2 K/mm3 (0.7-4.5); Lymphocytes % 13.7 % (10-50); Mean Corpuscular HGB Conc 33.6 g/dL (31.8-35.4); Mean Corpuscular Hemoglobin 30.9 pg (27.0-31.2); Mean Corpuscular Volume 92.2 fl (80-94); Mean Platelet Volume 9.6 fl (7.4-10.4); Monocytes # 0.8 K/mm3 (0.1-1.0); Neutrophils # 6.3 K/mm3 (1.8-7.8); Neutrophils % 73.7 % (37.0-80.0); Nucleated Red Blood Cells # 0 10^3/uL; Nucleated Red Blood Cells % 0 %; Platelet Count 239 K/mm3 (142-424); Red Blood Count 4.72 M/mm3 (4.60-6.20); White Blood Count 8.6 K/mm3 (4.8-10.8)
[2025-02-22 11:37] LABS: Alanine Aminotransferase 8 U/L (12-78); Albumin Level 4.1 g/dl (3.5-5.0); Albumin/Globulin Ratio 1.7 (1.1-1.8); Alkaline Phosphatase 74 U/L (38-126); Anion Gap 7.2 mEq/L (5-15); Aspartate Amino Transferase 27 U/L (17-59); Bilirubin,Total 0.7 mg/dl (0.2-1.3); Blood Urea Nitrogen 19 mg/dl (9-20); Calcium 8.6 mg/dl (8.4-10.2); Carbon Dioxide 24 mmol/L (22.0-30.0); Chloride 112 mmol/L (98-107); Creatinine Clearance Estimated 94 mL/min (50-200); Estimated Glomerular Filt Rate 73 ml/min (>60); GFR (African American) 88 ML/MIN (>60); Globulin 2.4 g/dL (1.3-3.2); Glucose 107 mg/dl (74-100); Potassium 4.2 mmoL/L (3.5-5.1); Sodium 139 mmol/L (136-145); Total Protein,Serum 6.5 g/dl (6.3-8.2)
[2025-02-22 12:00] VITALS: BP 135/80; PULSE 63; O2SAT 95
[2025-02-22] MEDS: 0.9 % SODIUM CHLORIDE 50 ML VIAL IV (12:27)
[2025-02-22] MEDS: SODIUM CHLORIDE 0.9% 10ML SYR (RAD ONLY) 10 ML IV (12:28)
[2025-02-22] MEDS: IOPAMIDOL-370 (76%);100ML BOTTLE 80 ML IV (12:28)
[2025-02-22 13:00] VITALS: BP 135/84; PULSE 55; O2SAT 97
[2025-02-22 13:41] VITALS: BP 135/84; PULSE 80; RESP 20; TEMP 37.1; O2SAT 97
== END 2025-02-22 14:00 | disposition home or self-care (01) ==
PROVIDERS: Nurse Practitioner Family; Emergency Provider Student in an Organized Health Care Education/Training Program; PCP Family Medicine
DX: M54.2 Cervicalgia (principal); M54.81 Occipital neuralgia
CPT/HCPCS: 70450; 70498; 80053; 85025; 96374; 99285; J1885; Q9967

== ENCOUNTER 2025-02-28 08:19 | Day surgery (SDC) | payer MEDICARE, SELFPAY ==
[2025-02-28 08:28] VITALS: BP 121/53; PULSE 76; RESP 16; TEMP 36.8; O2SAT 95; BMI 30.3
[2025-02-28 08:47] VITALS: BP 121/76; PULSE 83; RESP 18; O2SAT 94
[2025-02-28] MEDS: DEXAMETHASONE 10MG/ML 1ML VIAL 10 MG (08:47)
[2025-02-28] MEDS: BUPIVACAINE 0.25% 10ML INJ 25 MG IJ (08:47)
[2025-02-28] MEDS: LIDOCAINE 1% 5ML PF VIAL 5 ML (08:47)
[2025-02-28 08:49] VITALS: BP 121/76; PULSE 79; RESP 18; O2SAT 94
[2025-02-28 08:53] VITALS: BP 123/73; PULSE 79; RESP 16; O2SAT 97
--- NOTE | 2025-02-28 08:53 | EXP.PAIN.PRO ---
Procedure Date: 02/28/25 Time: 08:40 Anesthesiologist:: Alex Landin CRNA Complications:: None Pre-procedure Diagnosis:: Bilateral occipital neuralgia Post-procedure Diagnosis:: Same Indications for Procedure:: Patient is a pleasant 74-year-old male who comes our clinic today with symptoms of bilateral occipital neuralgia. Patient describes occipital pain that radiates to the crown of his head bilaterally. He describes the pain as constant, dull, aching. He rates pain 7/10. Procedure Details:: Details of the procedure explained to the patient. The patient taken procedure and placed in the sitting position. The area over the bilateral occipital nerve was cleaned using chlorhexidine as a cleansing solution. Using a 25-gauge needle the right occipital nerve area was accessed with ease. The needle was inserted contacting the occipital bone. At this time the needle was retracted slightly and after negative aspiration 3 cc of 1% lidocaine +3 cc of 0.25% Marcaine and 5 mg of dexamethasone was injected in a fanning fashion. The same procedure was carried out over the left occipital nerve area. The patient tolerated procedure without difficulty. There are no complications. Plan and Disposition:: Patient was discharged without incident.
== END 2025-02-28 08:53 | disposition home or self-care (01) ==
PROVIDERS: PCP Family Medicine; Visit Provider Nurse Anesthetist, Certified Registered
DX: M54.81 Occipital neuralgia (principal)
CPT/HCPCS: 64405; J1100

== ENCOUNTER 2025-03-22 09:08 | Outpatient (POV) | payer MEDICARE, SELFPAY ==
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
--- OUTSIDE RECORDS SUMMARY | 2025-03-22 09:18 | XMS_ITS | Referral Summary ---
Author Organization [employer] Address [address] [place] [address] Care Team Providers Care Manager Of Creative Services Name Role Phone Unavailable Primary Care Provider Unavailabl e Social History Tobacco Use Types Packs/Day Years Used Date Smoking Tobacco: Never Assessed Sex and Gender Information Value Date Recorded Sex Assigned at Male 04/08/2022 8:30 PM CDT Legal Sex Male 8:30 PM CDT Gender Identity Male 04/08/2022 8:30 PM CDT Sexual Orientation Not on file Plan of Treatment Not on file
--- OUTSIDE RECORDS SUMMARY | 2025-03-22 09:18 | XMS_ITS | Clinical Summary ---
Author Organization [employer] Address [address] [place] [address] Care Team Providers Care Coater Smoking Pipe Name Role Phone Unavailable Primary Care Provider [...]
--- OUTSIDE RECORDS SUMMARY | 2025-03-22 09:18 | XMS_ITS | Continuity of Care Document ---
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 Plan of Treatment Reminders Order Date Submit Date Provider Last Modified By Organization Details Last Modified Time Details Appointments OV EST 15 2024 01:15P M Deshaun Koch MD Not available Not available Not available OV EST 15 2024 11:30A M Cecilia Guiterrez NP Not available Not available Not available Lab urinalysi s, dipstick 2024 025 [email or web address] [facility] [address], [address], 03/13/2025 11:45:29 PSA, serum or plasma 2024 025 [facility] (Registration ), [address] [place], [address], 03/13/2025 11:55:20 Referral None recorded. Procedures bladder scan (PROC) 2024 025 [email or web address] [facility] Urology100, [address], [address], 03/13/2025 11:45:29 Surgeries None recorded. Imaging None recorded. Medication Orders oxybutyni n chloride ER 10 mg tablet,ex tended release 24 hr [address] [place] [address]/Pharmacy #[id number], [address] [facility], [place], [address], 03/13/2025 11:59:22 Patient TargetsNo targets recorded. Patient InstructionsNo instructions recorded. Reason for Referral None Reported. Results Created Date Observation Date Name Description Value Unit Range Abnormal Flag Note LastModifiedBy Organization Detail LastModifiedTime 03/13/2003/13/2025 bladd er scan (PROC ) Calculated Residual Urine: 0ml Not Available [place] [address] [address] [facility] [address], [place], [address], 03/13/2025 11:38:24 03/13/20 25 03/13/2025 urina lysis , dipst ick Leukocytes (reference range) negati ve Not Available [place] [address] [address] [facility] [address], [place], [address], 03/13/2025 11:37:23 03/13/20 25 03/13/2025 urina lysis , dipst ick Nitrite (reference range:) negati ve Not Available [place] [address] [address] [facility] [address], [place], [address], 03/13/2025 11:37:23 03/13/20 25 03/13/2025 urina lysis , dipst ick Urobilinogen (reference range) 0.2 Not Available [place] [address] [address] [facility] [address], [place], [address], 03/13/2025 11:37:23 03/13/20 25 03/13/2025 urina lysis , dipst ick Protein (reference range) trace Not Available [place] [address] [address] [facility] [address], [place], [address], 03/13/2025 11:37:23 03/13/20 25 03/13/2025 urina lysis , dipst ick pH (reference range 5-8.5) 5.0 Not Available [place] [address] [address] [facility] [address], [place], [address], 03/13/2025 11:37:23 03/13/20 25 03/13/2025 urina lysis , dipst ick Blood (reference range:) negati ve Not Available [place] [address] [address] [facility] [address], [place], [address], 03/13/2025 11:37:23 03/13/20 25 03/13/2025 urina lysis , dipst ick Specific [place] (reference range) 1.025 Not Available [place] [address] [address] [facility] [address], [place], [address], 03/13/2025 11:37:23 03/13/20 25 03/13/2025 urina lysis , dipst ick Ketone (reference range) trace Not Available [place] [address] [address] [facility] [address], [place], [address], 03/13/2025 11:37:23 03/13/20 25 03/13/2025 urina lysis , dipst ick Bilirubin (reference range) negati ve Not Available [place] [address] [address] [facility] [address], [place], [address], 03/13/2025 11:37:23 03/13/20 25 03/13/2025 urina lysis , dipst ick Glucose (reference range) negati ve Not Available [place] [address] [address] [facility] [address], [place], [address], 03/13/2025 11:37:23 03/13/20 25 03/13/2025 urina lysis , dipst ick Color (reference range: yellow-brown ) Yellow Not Available [place] [address] [address] [facility] [address], [place], [address], 03/13/2025 11:37:23 Result Notes None recorded. Problems Name Problem SNOMED Code Status Onset Date Resolution Date Notes Provider Name and Address Organization Details Recorded Time Chest pain 98090963 Active 2024 Deshaun Koch MD [address], [place], [address] , [facility] [place] 5 13:14:01 Dyspnea 881438843 Active 2024 Deshaun Koch MD [address], [place], [address] , [facility] [place] 5 13:14:05 Body mass index 30+ - obesity 976560318 Active 2017 Not Available [facility] 2 18:08:01 Nodule of lung 717510060 Active 2019 Not Available [facility] 2 18:08:01 Paresthes ia 17965869 Active 2019 Not Available [facility] 2 18:08:01 Parkinson 's disease 01207635 Active 2021 Not Available [facility] 2 18:08:01 Carcinoma of prostate 952533815 Active Prostate cancer Not Available [facility] 2 18:08:01 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 Procedures Surgical History Date Name Laterality Status Provider Name and Address Organization Details Recorded Time 10/12/19 total shoulder replacement completed Mima Benítez DO [address], [place], [address], [facility] [place] 01/25/2023 14:34:00 10/12/19 15 procedure on hand completed Mima Benítez, DO [address], [place], [address], [place] [facility] [place] 01/25/2023 14:34:35 10/12/19 10 prostatectomy completed Mima Benítez, DO [address], [place], [address], [place] [facility] [place] 01/25/2023 14:32:31 10/12/19 10 total knee replacement completed Mima Benítez, DO [address], [place], [address], [place] [facility] [place] 01/25/2023 14:33:31 10/12/19 09 total knee replacement completed Mima Benítez, DO [address], [place], [address], [place] [facility] [place] 01/25/2023 14:33:25 10/12/19 06 Appendectomy completed Mima Jeyson DO [address], [place], [address], [place] [facility] [place] 01/25/2023 14:33:44 inguinal hernioplasty completed Mima Benítez, DO [address], [place], [address], [place] [facility] [place] 01/25/2023 14:32:51 extracorporeal shockwave lithotripsy of urinary bladder completed Mimamonika Benítez DO [address], [place], [address], [place] [facility] [place] 01/25/2023 14:34:59 Imaging Results None recorded. Procedure Notes None recorded. Medical Equipment None Reported. Allergies Allergen ID Allergen Name Allergen Category Reaction Reaction Severity Criticality Documentation Date Start Date Code Code System Note Provider Name and Address Organization Details Recorded Time 755593 colchicin e medicatio n Not available Not available Not available 10/26/2024 2683 RxNorm Dominga [place], [place] - [facility] [place] 13:03:44 631944 Norvasc medicatio n Not available Not available Not available 10/26/2024 99134 RxNorm Dominga Gonzalez [facility], [place] - [facility] [place] [facility] [place] 5 13:03:54 10127 linacloti de medicatio n Not available Not available Not available 07/14/2022 48510 04 RxNorm React ion: hallu cinat ion, sever ity: Unkno wn Not Available [facility] 02:55:50 Medications Name Sig Start Date Stop Date Status Note LastModified by Organization Details LastModified Time Prescriptio n - Renewal active Not Available Not Available Not Available amoxicillin 500 mg capsule TAKE 1 CAPSULE BY MOUTH TWICE A DAY active Not Available Not Available No t Available atorvastati n 40 mg tablet 1 tablet Orally Once a day for 30 day(s) 10/22 completed Not Available Not Available Not Available methocarbam ol 500 mg tablet 10/22 completed Not Available Not Available Not Available tizanidine 2 mg tablet TAKE 1 TABLET BY MOUTH TWICE DAILY active Not Available Not Available No t Available ammonium lactate 12 % lotion APPLY ONCE DAILY MOISTURIZ ER TO AFFECTED AREAS. active Not Available Not Available No t Available oxybutynin chloride ER 10 mg tablet,exte nded release 24 hr Take 1 tablet every day by oral route for 30 days. 2024 active Not Available Not Available Not Avai lable benzonatate 200 mg capsule TAKE 1 CAPSULE BY MOUTH EVERY 8 HOURS NEEDED active Not Available Not Available No t Available hydrocodone 5 mg-acetamin ophen 325 mg tablet TAKE 1 TABLET BY MOUTH EVERY 6 HOURS NEEDED 08/26 completed Not Available Not Available Not Available meloxicam 15 mg tablet 10/22 completed Not Available Not Available Not Available phenazopyri dine 200 mg tablet 1 TABLET BY MOUTH EVERY EIGHT HOURS NEEDED FOR BLADDER SPASM PAIN 02/24 completed Not Available Not Available Not Available ondansetron HCl 4 mg tablet TAKE 1 TABLET BY MOUTH EVERY 8 HOURS NEEDED FOR NAUSEA OR VOMITING. MAY CAUSE DROWSINES S 08/26 completed Not Available Not Available Not Available prednisone 20 mg tablet 12/05 completed Not Available Not Available Not Available penicillin V potassium 500 mg tablet TAKE 1 TABLET BY MOUTH FOUR TIMES A DAY UNTIL FINISHED 08/26 completed Not Available Not Available Not Available metronidazo le 500 mg tablet TAKE 1 TABLET BY MOUTH TWICE A DAY UNTIL FINISHED 08/26 completed Not Available Not Available Not Available sulfamethox azole 800 mg-trimetho prim 160 mg tablet 02/24 completed Not Available Not Available Not Available tramadol 50 mg tablet 02/24 completed Not Available Not Available Not Available ondansetron 8 mg disintegrat ing tablet TAKE 1 TABLET BY MOUTH EVERY 8 HOURS 08/26 completed Not Available Not Available Not Available ketorolac 0.5 % eye drops INSTILL 1 DROP INTO AFFECTED EYE FOUR TIMES A DAY START AFTER SURGERY active Not Available Not Available No t Available meloxicam 7.5 mg tablet 1 tablet Orally Once a day for 30 day(s) 08/26 completed Not Available Not Available Not Available oxycodone-a cetaminophe n 5 mg-325 mg tablet TAKE 1 TABLET EVERY 4 TO 6 HOURS NEEDED FOR PAIN 08/26 completed Not Available Not Available Not Available prednisolon e acetate 1 % eye drops,suspe nsion INSTILL 1 DROP INTO AFFECTED EYE FOUR TIMES A DAY START AFTER SURGERY active Not Available Not Available No t Available methocarbam ol 750 mg tablet 10/22 completed Not Available Not Available Not Available tamsulosin 0.4 mg capsule TAKE 1 CAPSULE BY MOUTH TWICE A DAY active Not Available Not Available No t Available dicyclomine 20 mg tablet 1 tablet Orally 2 times a day 10/22 completed Not Available Not Available Not Available phenazopyri dine 100 mg tablet TAKE 1 TABLET BY MOUTH EVERY 6 TO 8 HOURS NEEDED 02/24 completed Not Available Not Available Not Available baclofen 10 mg tablet TAKE 1 TABLET BY MOUTH AT BEDTIME NIGHTLY active Not Available Not Available No t Available benzonatate 100 mg capsule TAKE 1 CAPSULE BY MOUTH EVERY 8 HOURS NEEDED active Not Available Not Available No t Available hydrocodone 7.5 mg-acetamin ophen 325 mg tablet TAKE 1 TABLET EVERY 4 TO 6 HOURS NEEDED FOR PAIN 08/26 completed Not Available Not Available Not Available nitroglycer in 0.4 mg sublingual tablet Sublingua l 10/22 completed Not Available Not Available Not Available codeine 10 mg-guaifene sin 100 mg/5 mL oral liquid TAKE [address] ORAL ROUTE EVERY 4 TO 6 HOURS NEEDED FOR ALLERGY SYMPTOMS active Not Available Not Available No t Available gabapentin 100 mg capsule 2 CAPS CAPSULE BY MOUTH TWO TIMES DAILY 01/04 completed Not Available Not Available Not Available cefuroxime axetil 500 mg tablet 02/24 completed Not Available Not Available Not Available methylpredn isolone 4 mg tablets in a dose pack TAKE 6 TABLETS ON DAY 1 DIRECTED ON PACKAGE AND DECREASE BY 1 TAB EACH DAY FOR A TOTAL OF 6 DAYS 02/24 completed Not Available Not Available Not Available albuterol sulfate HFA 90 mcg/actuati on aerosol inhaler INHALE 2 PUFF INHALE EVERY 4-6 HOURS NEEDED active Not Available Not Available No t Available dexamethaso ne 0.5 mg tablet TAKE 1 TABLET ORAL ROUTE 3 TIMES PER DAY active Not Available Not Available No t Available celecoxib 100 mg capsule TAKE 1 CAPSULE BY MOUTH EVERY DAY active Not Available Not Available No t Available ondansetron 4 mg disintegrat ing tablet TAKE 1 TABLET BY MOUTH EVERY 6 TO 8 HOURS NEEDED 10/22 completed Not Available Not Available Not Available cefdinir 300 mg capsule TAKE 1 CAPSULE BY MOUTH TWICE A DAY 03/13 completed Not Available Not Available Not Available fluticasone propionate 50 mcg/actuati on nasal spray,suspe nsion USE 2 SQUIRT IN THE NOSTRILS DAILY active Not Available Not Available No t Available loratadine 10 mg tablet TAKE 1 TABLET BY MOUTH EVERY DAY 01/04 completed Not Available Not Available Not Available naproxen 500 mg tablet 10/22 completed Not Available Not Available Not Available amoxicillin 875 mg-potassiu m clavulanate 125 mg tablet TAKE 1 TABLET EVERY 12 HOURS DAILY 10/22 completed Not Available Not Available Not Available amoxicillin 500 mg-potassiu m clavulanate 125 mg tablet TAKE 1 TABLET EVERY 12 HOURS DAILY 08/26 completed Not Available Not Available Not Available azithromyci n 500 mg tablet TAKE 1 TABLET BY MOUTH EVERY DAY 01/04 completed Not Available Not Available Not Available moxifloxaci n 0.5 % eye drops INSTILL 1 DROP INTO AFFECTED EYE FOUR TIMES A DAY START 2 DAYS PRIOR TO SURGERY active Not Available Not Available No t Available pregabalin 75 mg capsule TAKE 1 CAPSULE BY MOUTH TWICE DAILY active Not Available Not Available No t Available Eliquis 5 mg tablet TAKE 1 TABLET BY MOUTH TWICE A DAY 08/26 completed Not Available Not Available Not Available Rytary 23.75 mg-95 mg capsule,ext ended release 01/04 completed wro ng dose- not done* * Not Available Not Available Not Available Rytary 61.25 mg-245 mg capsule,ext ended release TAKE 2 CAPSULES BY MOUTH THREE TIMES DAILY FOR PARKINSON S active Not Available Not Available No t Available Rytary 48.75 mg-195 mg capsule,ext ended release TAKE 2 CAPSULES BY MOUTH TWICE A DAY FOR 90 DAYS 01/04 completed Not Available Not Available Not Available Rytary 36.25 mg-145 mg capsule,ext ended release Take 2 capsules twice a day by oral route for 30 days. 02/24 completed Not Available Not Available Not Available WesTab Max 2.5 mg-25 mg-2 mg tablet TAKE 1 TABLET BY MOUTH EVERY DAY 01/04 completed Not Available Not Available Not Available Vitals Date Recorded Body height Body mass index (BMI) Body weight Systolic blood pressure Diastolic blood pressure Provider Name and Address Organization Details Last Updated DateTime 03/13/2025 185.42 cm 30.8 kg/m2 806207.1 8 g 140 mm[Hg] 80 mm[Hg] Tess Seaman [facility] [place] 11:37:13 Social History Question Answer Notes LastModified by [employer] ion Details LastModified Time Tobacco Smoking Status Former Smoker Dominga [place], [facility] [place] 10/26/2024 13:05:35 What Is Your Level Of Caffeine Consumption? Moderate Information not available 02/24/2023 When Did You Quit Smoking? 16+yearssinc elastcigaret te [email or web address] Information not available 10/26/2024 What Is Your Relationship Status? Live In House Information not available 02/24/2023 Are You Currently In School? No PhD Information not available 02/24/2023 Sex: Unknown Functional Status Question Answer Note LastModified by Organizat ion Details LastModified Time Do you use any illicit or recreational drugs? No [email or web address] Information not available 10/22/2022 What is your level of alcohol consumption? 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 Family History Relationship Description Onset Age of this Age Resolved Age Notes LastModified by Organization Details LastModified Time Mother Malignant tumor of breast [email or web address] Not available 2022 14:31:08 Father Coronary arterioscler osis [email or web address] Not available 2022 14:31:17 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 Condition Response Head Trauma/Injury Y Heart Attack ([place]) Y Cancer Y Ear or Hearing Problems Y Parkinson's Disease Y Neurological Problems Y Immunizations Vaccine Type Date Status Note Provider Nam e and Address Organization Details Recorded Time Tdap 01/14/2016 completed Not Available [facility] 07/14/2022 03:02:27 Past Encounters Encounter ID Performer Location Encounter Start Date Encounter Closed Date Diagnosis/Indication Diagnosis SNOMED-CT Code Diagnosis ICD10 Code Diagnosis Note [id number] Cecilia Gutierrez NP, [facility]-[address] [place] [address] 03/13/2025 11:13:39 03/13/2025 11:47:05 Carcinoma of prostate 394680569 C61 Nocturia 465275464 R35.1 Urinary incontinence 165 920323 R32 Continue Oxybutynin 10mg daily. dRTC in 6 months fo r f/u Poor stream of urine 162 156620 R39.12 Continue Tamsulosin 0.4mg bid Health Concerns Section Related Observation LastModified by Organization Detai ls LastModified Time None Recorded Concern Status LastModified by Organization Details LastModified Time None Recorded Payers Encounter Date Sequence Insurance Name Policy Number Policy Ricardo Covered Member ID Ricardo Member ID Guarantor Name 03/13/2025 1 [place] Michael Benítez [id number] 1 Michael Benítez 03/13/2025 2 [id number] Khushi Benítez [id number] Michael Benítez Notes Date Note Type Note Provider Name and Address Organization Details Recorded Time 03/13/2025 text/html 03/13/2025 74 yowm RTC for 8 week f/u of urinary incontinence. At last visit on 01/09/2025, pt was started on Oxybutynin 10mg daily. States medication has significantly helped with his incontinence. He denies any overt SEs from the medication. Previously patient was changed in his hands 3 to 4 times a day states now he is changing them at least 1 time a day.Patient with history of prostate cancer. Last PSA on 01/09/2025 was < 0.13. patient with history of weak urinary stream treated with tamsulosin 0.4 mg 2 tabs once daily. Patient reports urinary stream is good. He denies any dysuria or gross hematuria. History of kidney stones. KUB on 01/09/2025 did not reveal any stones.Patient with Parkinson's disease. 01/09/2025 74 yowm RTC for f/u of history Prostate Cancer, Kidney stones, and weak urinary stream. Pt states he has not had a recent PSA. States urinary stream good, on Tamsulosin 0.4mg bid. Nocturia x 1-2. Denies any dysuria or gross hematuria. States approx 2 months ago [facility], was started on a medication and within a few days started experiencing urinary incontinence. States medication was discontinued; however, he is still experiencing urinary incontinence. States is wearing a depends and changing them 3-4 times per day. States prior to 2 months ago was not experiencing any leakage. Denies any h/o glaucoma. Denies any renal colic sxs.Pt with h/o Parkinson's. 04/07/2024 73 yowm RTC for 3 month f/u of weak urinary stream. At last visit on 01/05/2024, Tamsulosin was increased to twice a day. States with the medication increased his stream has improved. Denies any overt SEs from the medication. PVR at last visit was 30cc. Pt with h/o kidney stones and Prostate Cancer. Recent PSA was < 0.13 on 01/06/2024. Nocturia 1-2. Denies any dysuria or gross hematuria. Denies any renal colic sxs. KUB on 01/06/2024 did not reveal any stones. Patient underwent right rigid and flexible ureteroscopy with laser lithotripsy of stones with cystoscopy removal and replacement of right double-J stent on 10/30/2022.H/o prostate cancer with Prostatectomy performed per Dr Lamb approx 15 years ago.Pt with h/o Parkinsons, sees Dr Mima Benítez. 01/09/2025: PSA < 0.13. KUB no stones seen01/06/2024: PSA < 0.132/: PSA < 0.13 Cecilia Gutierrez NP, [address], [place], [address], [facility] [place] [facility] [place] 03/13/2025 11:59:47
--- OUTSIDE RECORDS SUMMARY | 2025-03-22 09:18 | XMS_ITS | Data Portability ---
Author Organization [facility] [place] [facility] ADMIN Address [address] [place] [address] Care Team Providers Care Model Maker Plastic Name Role Phone MALONEYMADELEINE Primary Care Provider Assessment No assessment recorded. Plan of Treatment Reminders Order Date Submit Date Provider Last Modified By Organization Details Last Modified Time Details Appointments OV EST 15 2024 01:15P M Deshaun Nam MD Not available Not available Not available OV EST 15 2024 11:30A M Cecilia Boss NP Not available Not available Not available Lab urinalysi s, dipstick 2024 025 [email or web address] [facility], [address], [place], [address], 03/13/2025 11:45:29 PSA, serum or plasma 2024 025 [facility] (Registration ), [address] [place], [address], 03/13/2025 11:55:20 PSA, serum or plasma 2024 025 [facility] (Registration ), [address] [place], [address], 01/09/2025 13:42:19 Referral None recorded. Procedures bladder scan (PROC) 2024 025 [email or web address] [facility], [address], [place], [address], 03/13/2025 11:45:29 bladder scan (PROC) [address] [facility], [address], [place], [address], 01/09/2025 13:02:28 Surgeries None recorded. Imaging XR, kidney + ureter + bladder [email or web address] [place] [address] (Registration ), [address], [place], [address], 01/09/2025 11:48:47 pharmacol ogic nuclear stress test [address], [address], [place], [address], 12/02/2024 10:23:59 US, echocardi ogram, transthor acic, complete, w/ color flow [address], [address], [place], [address], 11/18/2024 11:10:57 Medication Orders oxybutyni n chloride ER 10 mg tablet,ex tended release 24 hr 2024 025 [facility]/Pharmacy #[id number], [address] [place] [address], [address], 03/13/2025 11:59:22 tamsulosi n 0.4 mg capsule 2024 025 [facility]/Pharmacy #[id number], [address] [place], [address], 01/09/2025 13:01:51 oxybutyni n chloride ER 10 mg tablet,ex tended release 24 hr [address]/Pharmacy #[id number], [address] [place], [address], 01/31/2025 14:13:14 tamsulosi n 0.4 mg capsule 2023 024 [facility]/Pharmacy #[id number], [address] [facility], [place], [address], 04/07/2024 11:32:38 Patient TargetsNo targets recorded. Patient InstructionsNo instructions recorded. Reason for Referral None Reported. Results Created Date Observation Date Name Description Value Unit Range Abnormal Flag Note LastModifiedBy Organization Detail LastModifiedTime 01/10/2001/09/2025 PROST ATE SPECI FIC AG (PSA) prostate specific Ag (PSA) <0.13 NG/mL 0-4.0 Not Available [facility] ([facility]) [address], [place], [address], 01/09/2025 13:42:19 01/10/20 25 01/09/2025 bladd er scan (PROC ) Calculated Residual Urine: 13cc Not Available [facility] [address], [place], [address], 01/09/2025 13:02:16 03/13/20 25 03/13/2025 bladd er scan (PROC ) Calculated Residual Urine: 0ml Not Available [facility] [address], [place], [address], 03/13/2025 11:38:24 03/13/20 25 03/13/2025 urina lysis , dipst ick Leukocytes (reference range) negati ve Not Available [facility] [address], [place], [address], 03/13/2025 11:37:23 03/13/20 25 03/13/2025 urina lysis , dipst ick Nitrite (reference range:) negati ve Not Available [place] [address] [address] [facility] [address], [place], [address], 03/13/2025 11:37:23 03/13/20 25 03/13/2025 urina lysis , dipst ick Urobilinogen (reference range) 0.2 Not Available [place] [address] [address] [facility] 100, [place], [address], 03/13/2025 11:37:23 03/13/20 25 03/13/2025 urina lysis , dipst ick Protein (reference range) trace Not Available [place] [address] [address] [facility] 100, [place], [address], 03/13/2025 11:37:23 03/13/20 25 03/13/2025 urina lysis , dipst ick pH (reference range 5-8.5) 5.0 Not Available [facility] [place] [address] [address] [facility] [address], [place], [address], 03/13/2025 11:37:23 03/13/20 25 03/13/2025 urina lysis , dipst ick Blood (reference range:) negati ve Not Available [place] [address] [address] [facility] 100, [place], [address], 03/13/2025 11:37:23 03/13/20 25 03/13/2025 urina lysis , dipst ick Specific [place] (reference range) 1.025 Not Available [place] [address] [address] [facility] 100, [place], [address], 03/13/2025 11:37:23 03/13/20 25 03/13/2025 urina lysis , dipst ick Ketone (reference range) trace Not Available [place] [address] [address] [facility] 100, [place], [address], 03/13/2025 11:37:23 03/13/20 25 03/13/2025 urina lysis , dipst ick Bilirubin (reference range) negati ve Not Available [place] [address], [place], [address], 03/13/2025 11:37:23 03/13/20 25 03/13/2025 urina lysis , dipst ick Glucose (reference range) negati ve Not Available [place] [address], [place], [address], 03/13/2025 11:37:23 03/13/20 25 03/13/2025 urina lysis , dipst ick Color (reference range: yellow-brown ) Yellow Not Available [facility] [address], [place], [address], 03/13/2025 11:37:23 11/16/19 25 11/11/2024 US, echoc ardio gram, trans thora cic, compl ete, w/ color flow [facility] [address] [place] [address] Phone: Fax: Name: AARON BENÍTEZ Exam Date: 025 : [birth year] Age 74 years Gender : M Access ion: [id number] Physic jonah: DESHAUN NAM ty: [facility] Facili ty HSV: Outpat ient Exam: ECHO W SPEC COLOR FLOW Reason for Study: Dyspne a SUMMAR Y Poor qualit y study. Normal LV size with normal functi on. The ejecti on fracti on is 60-65% . Normal LV fillin g for age. INTERP RETATI ON DETAIL Poor qualit y study. Left ventri nanette: The left ventri nanette is normal in size with normal systol ic functi on. The ejecti on fracti on is 60-65% . There is normal LV wall thickn ess. LV geomet ry is normal . The left ventri cular wall motion is normal . The left ventri cular fillin g patter n is normal for age. Left atrium : The left atrium is normal . LA volume : 41.5mL , LA volume index: 18.0mL /mA . Right ventri nanette: The right ventri nanette is normal in size with normal functi on. Right atrium : The right atrium is normal . Mitral valve: The mitral valve is normal . There is no mitral stenos is. There is no mitral regurg itatio n. Aortic valve: The aortic valve is normal and trilea flet. There is with a valve area of 3.52 director medical surgical (Peak grad=5 mmHg, Mean grad=3 mmHg, LVOT leo=2. 10cm, LVOT TVI=24 .2cm, Ao TVI=23 .8cm). The dimens ionles s index is 1.02. AV peak veloci iu=570 cm/sec . Tricus pid valve: The tricus pid valve is normal . There is no tricus pid regurg itatio n, so PA pressu re cannot be estima tara. Pulmon ic valve: The pulmon ic valve is normal . Perica rdium: The perica rdium is normal . Intera trial septum : The intera trial septum is normal . Aorta: The aorta is normal . The aortic root is normal . Aortic dimens ion - Ao M-mode = 3.50cm . Vena Cava: The inferi or vena cava is normal . MEASUR EMENTS Left Ventri nanette IVSd: 0.85cm (0.6-1 .1cm) PWd: 0.87cm (0.6-1 .1cm) Mass Olga: 110g LVMI: 48g/mA (>50-9 5g/m) LVIDd: 4.17cm (3.7-5 .6 cm) LVIDdI : 1.81cm /m2 LVIDs: 2.45cm (1.8-4 .2 cm) LVIDsI : 1.06cm /m2 RWT: 0.42 (<0.42 ) E to A: 0.80 (0.6-2 ) E-e prime med: 11.83 E-e prime lat: 8.88 Decel: 246.00 ms (168-2 32ms) Max Valve Veloci ties AV peak kamila: 117cm/ sec LVOT: 114.00 cm/sec At[employer] LA AP: 3.0cm LA vol: 41.5mL Legall y authen ticate d by CYRIL Smith 11-16 12:41: 38 FREDA: 18.0mL /mA (16-28 ml/m^2 ) Deshaun Nam MD Electr onical ly signed by Dr. Deshaun Nam on 2024 at 12:41 PM Dictat ed By: DESHAUN NAM Transc ribed By: Transc ribed On: 11/16/19 12:41 PM Electr onical ly signed by: DESHAUN NAM 11/16/19 Thank you for referr AARON Wiseman to [facility] al. Legall y authen ticate d by CYRIL Smith 11-16 12:41: 38 CC'ed Logic: Orderi ng Provid er: CYRIL HARPER Attend ing Provid er: CYRIL HARPER Referr ing Provid er: CYRIL HARPER Admitt ing Provid er: CYRIL HARPER [facility] [address] [place], [address], 11/18/2024 11:10:56 11/21/19 25 11/11/2024 pharm acolo gic nucle ar stres s test Nuclea r Stress Test [facility] EXAM: HEART SPECT MULTI REST/S TRESS [id number] DATE OF EXAM: 2024 07:41: 15 NUCLEA R STRESS TEST PROVID ER: Deshaun Nam MD, FACC REQUES TING PHYSIC JONAH: Deshaun Nam MD, FACC. INDICA TION: Chest pain. PROCED URE: After inform ed consen t, the patien t underw ent pharma cologi jean marie stress test with Lexisc an protoc ol. Restin g heart rate 75, umu to maximu m 96 beats per minute . Restin g blood pressu re of 140/91 muu to maximu m 178/93 mmHg. Stress test was stoppe d as per protoc ol. No signif icant sympto ms with Lexisc an infusi on. At rest, 10.99 mCi of techne tium tetrof bob was infuse d and rest SPECT images were obtain ed. At peak stress , 30.9 mCi of techne tium tetrof bob was infuse d and stress SPECT images were obtain ed. Gated SPECT images were obtain ed. FINDIN GS: Baseli ne EKG showed normal sinus rhythm with no arrhyt hmia or ischem ic EKG change s. Calcul ated EF of 54%. TID ratio 0.92. Review of the axial images showed inferi or fixed defect with no revers ibilit y sugges tive of ischem ia. Given normal inferi or wall motion , probab ly diaphr agmati c attenu ation artifa ct. FINAL IMPRES AUGUSTIN: No eviden ce of myocar dial ischem ia. Inferi or defect , possib ly artifa ctual given normal inferi or wall motion . Calcul ated EF 54%. DICTAT ED BY: Deshaun Nam MD, [facility] JT/MOD L DD: 2024 13:07: 46 DT: 2024 13:57: 01 /[id number] Electr onical ly Signed By: CYRIL Smith 11-21 11:53: 50 CC'ed Logic: Orderi ng Provid er: CYRIL HARPER Attend ing Provid er: CYRIL HARPER Referr ing Provid er: CYRIL HARPER Admitt ing Provid er: CYRIL HARPER [facility] [address] [place] [address], [address], 12/02/2024 10:23:59 01/11/20 25 01/09/2025 XR, [facility] en[facility] [address] [place] [address] Phone: Fax: Name: AARON BENÍTEZ Exam Date: 025 : [birth year] Age 74 years Gender : M Access ion: [id number] Physic jonah: MARIA T BOSS Facili ty: [facility] Facili ty HSV: Outpat ient Exam: ABD KUB 1V XR ABDOME N 1 VIEW (KUB) Reason For Study: kidney stone COMPAR KIRK: 24 TECHNI QUE A supine view of the abdome n was obtain ed. FINDIN GS Mild gastri c disten tion. Consti pation . Mild-t o-mode rate degene rative change in the SI joints hips and spine. Consid erable disc space narrow ing and DJD at L2-3. Surgic al clips noted over the symphy sis area. No defini tive lytic or blasti c lesion s. No defini te calcul i. IMPRES AUGUSTIN: Consti pation . Electr onical ly signed by: David Alexander MD 2024 09:52 AM EDT RP Workst ation: [id number] Dictat ed By: David Alexander Transc ribed By: Transc ribed On: 025 12:40 PM Electr onical ly signed by: David Alexander 025 Thank you for referr AARON Wiseman to [facility]. Legall y authen ticate d by NIKKIE MEADOWS 2024-0 01-09 12:40: 30 CC'ed Logic: Orderi ng Provid er: GERA KAURA Marybel Attend ing Provid er: GERA KAURA Marybel Admitt ing Provid er: GERA No [email or web address] [facility] [address] [facility] [address], [place], [address], 01/10/2025 11:29:23 Result Notes None recorded. Problems Name Problem SNOMED Code Status Onset Date Resolution Date Notes Provider Name and Address Organization Details Recorded Time Chest pain 40927333 Active 2024 Deshaun Nam MD [address] , [place], [address] , [facility] - NT [facility] [place] 5 13:14:01 Dyspnea 860169288 Active 2024 Deshaun Nam MD [address] , [place], [address] , [facility] - [facility] [place] 5 13:14:05 Body mass index 30+ - obesity 308556854 Active 2017 Not Available [facility] 2 18:08:01 Nodule of lung 140017014 Active 2019 Not Available [facility] 2 18:08:01 Paresthes ia 82581910 Active 2019 Not Available [facility] 2 18:08:01 Parkinson 's disease 67580511 Active 2021 Not Available [facility] 2 18:08:01 Carcinoma of prostate 971802088 Active Prostate cancer Not Available [facility] 2 18:08:01 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 Procedures Surgical History Date Name Laterality Status Provider Name and Address Organization Details Recorded Time 10/12/19 19 total shoulder replacement completed Mima Benítez DO [address], [place], [address], [place] [facility] [place] 01/25/2023 14:34:00 10/12/19 15 procedure on hand completed Mima Benítez DO [address], [place], [address], [place] [facility] [place] 01/25/2023 14:34:35 10/12/19 10 prostatectomy completed Mima Benítez DO [address], [place], [address], [place] [facility] [place] 01/25/2023 14:32:31 10/12/19 10 total knee replacement completed Mima Benítez DO [address], [place], [address], [place] [facility] [place] 01/25/2023 14:33:31 10/12/19 09 total knee replacement completed DO [address], [place], [address], [facility] [place] 01/25/2023 14:33:25 10/12/19 06 Appendectomy completed Mima DO [place] [address], [place], [address], [facility] [place] 01/25/2023 14:33:44 inguinal hernioplasty completed Mima DO [place] [address], [place], [address], [facility] [place] 01/25/2023 14:32:51 extracorporeal shockwave lithotripsy of urinary bladder completed Mima Benítez DO [address], [place], [address], [facility] [place] 01/25/2023 14:34:59 Imaging Results None recorded. Procedure Notes None recorded. Medical Equipment None Reported. Allergies Allergen ID Allergen Name Allergen Category Reaction Reaction Severity Criticality Documentation Date Start Date Code Code System Note Provider Name and Address Organization Details Recorded Time 199449 colchicin e medicatio n Not available Not available Not available 10/26/2024 2683 RxNorm [facility] [place] 5 13:03:44 743705 Norvasc medicatio n Not available Not available Not available 10/26/2024 83372 RxNorm [facility] [place] 5 13:03:54 03331 linacloti de medicatio n Not available Not available Not available 07/14/2022 98499 04 RxNorm React ion: hallu cinat ion, sever ity: Unkno wn Not Available [facility] 2 02:55:50 Medications Name Sig Start Date Stop [...] height Body mass index (BMI) Body weight Oxygen saturation Oxygen saturation in Arterial blood by Pulse oximetry Heart rate Systolic blood pressure Diastolic blood pressure Provider Name and Address Organization Details Last Updated DateTime 5 185.42 cm 31.1 kg/m2 158908. 8 g 97 % 97 % 97 /min 118 mm[Hg] 74 mm[Hg] Dominga AMIN [facility] [place] 5 13:06:56 Date Recorded Body height Body mass index (BMI) Body weight Oxygen saturation Oxygen saturation in Arterial blood by Pulse oximetry Heart rate Systolic blood pressure Diastolic blood pressure Provider Name and Address Organization Details Last Updated DateTime 5 185.42 cm 30.7 kg/m2 918455. 02 g 96 % 96 % 100 /min 118 mm[Hg] 72 mm[Hg] Dominga AMIN [facility] [place] 5 13:16:28 Date Recorded Body height Body mass index (BMI) Body weight Body temperature Oxygen saturation Oxygen saturation in Arterial blood by Pulse oximetry Heart rate Systolic blood pressure Diastolic blood pressure Provider Name and Address Organization Details Last Updated DateTime 5 185.42 cm 30.9 kg/m2 639854. 61 g 97.7 [degF] 100 % 100 % 70 /min 120 mm[Hg] 70 mm[Hg] Selene AMIN [facility] [place] 5 11:46:49 Date Recorded Body height Body mass index (BMI) Body weight Systolic blood pressure Diastolic blood pressure Provider Name and Address Organization Details Last Updated DateTime 03/13/2025 185.42 cm 30.8 kg/m2 668586.1 8 g 140 mm[Hg] 80 mm[Hg] Tess AMIN [facility] [place] 5 11:37:13 Date Recorded Body height Body mass index (BMI) Body weight Body temperature Provider Name and Address Organization Details Last Updated DateTime 04/07/2024 185.42 cm 30.3 kg/m2 569391.25 g 98 [degF] Selene INFANTE - [facility] [place] 04/07/2024 11:22:39 Social History Question Answer Notes LastModified by Organizat ion Details LastModified Time Tobacco Smoking Status Former Smoker Dominga pascal, [place] Vic NT [facility] [place] 10/26/2024 13:05:35 What Is Your Level Of Caffeine Consumption? Moderate Information not available 02/24/2023 When Did You Quit Smoking? 16+yearssinc elastcigaret te [email or web address] Information not available 10/26/2024 What Is Your Relationship Status? Live In House Information not available 02/24/2023 Are You Currently In School? No PhD Information not available 02/24/2023 Sex: Unknown Functional Status Question Answer Note LastModified by Organizat ion Details LastModified Time Do you use any illicit or recreational drugs? No [email or web address] Information not available 10/22/2022 What is your level of alcohol consumption? 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 Family History Relationship Description Onset Age of this Age Resolved Age Notes LastModified by Organization Details LastModified Time Mother Malignant tumor of breast [email or web address] Not available 2022 14:31:08 Father Coronary arterioscler osis [email or web address] Not available 2022 14:31:17 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 Condition Response Head Trauma/Injury Y Heart Attack (HI) Y Cancer Y Parkinson's Disease Y Ear or Hearing Problems Y Neurological Problems Y Immunizations Vaccine Type Date Status Note Provider Nam e and Address Organization Details Recorded Time Tdap 01/14/2016 completed Not Available [facility] 07/14/2022 03:02:27 Past Encounters Encounter ID Performer Location Encounter Start Date Encounter Closed Date Diagnosis/Indication Diagnosis SNOMED-CT Code Diagnosis ICD10 Code Diagnosis Note [id number] Cecilia Boss NP, S [facility] [address] [facility] [place] [address] 10/22/2022 08:12:09 10/22/2022 09:55:16 Ureteric stone 24234550 N20.1 CT scan report from reviewed with the pt. KUB today. KUB film reviewed results discussed with patient clinic today. On KUB stone has moved down to L5 position. Option of BC, possible right ureterosco py, laser ablation of stone, possible placement of right Double-J ureteral stent vs. cautious w/w approach. The pt. has elected to proceed with BC, possible right ureterosco py, laser ablation of stone, possible placement of right Double-J ureteral stent. Schedule BC, possible right ureterosco py, laser ablation of stone, possible placement of right Double-J ureteral stent Pt is to be NPO night before surgery, No ASA, Mobic, Motrin 3 days before surgery, and bring a tow car driver. Risk of procedure discussed in detail today that includes but not limited to infection, bleeding, risk of injury to urinary tract, pain, anesthesia risk. Patient will be scheduled for surgery tomorrow with arrival time of 10:30 a.m. this was discussed with patient in detail today before leaving the clinic. Return to clinic will be determined once procedure has been done. Hydronephrosis 19750890 N13.30 History of malignant neoplasm of prostate 018921088 Z85.46 [id number] Cecilia Boss NP, S [facility] [address] [place] [address] 10/28/2022 10:09:23 10/28/2022 11:39:04 Ureteric stone 00995043 N20.1 KUB today. KUB film reviewed results discussed with patient clinic today. On KUB right double-J stent in proper position. Patient will be scheduled for cystoscopy with removal and possible replacemen t of right double-J stent, right ureterosco py, laser, possible stone extraction . Risk of procedure discussed with patient clinic today that includes but not limited to infection, bleeding, risk of injury to urinary tract, pain, anesthesia risk. Discussed with patient the need or drink after midnight night before procedure. Patient will need to bring a tow car driver. No aspirin or NSAIDs from this point on.Continu e Cefdinir 300mg bidContinu e Pyridium as needed for bladder spasms Carcinoma of prostate 25 6118936 C61 [id number] Cecilia Boss NP, S [facility] [address] [place] [address],[facility] [address] [place] [address] 11/05/2022 08:40:38 11/05/2022 09:34:48 Ureteric stone 86752895 N20.1 Stent removed via traction applied to attached string without difficulty . After stent removed patient become nauseous. He reports the pain from his leg is what is making him nauseated. Due to the ongoing nature of the leg pain I have contacted the emergency room and spoke with Alexis TAMAYO and we will be taking the patient over to the emergency room for further evaluation of this to rule out possible blood clot. Carcinoma of prostate 25 5681595 C61 Pain in limb 82036454 M7 9.609 Parkinson's disease 4904 9000 G20 [id number] Nam Fernández MD [facility] [address] [facility] [address] [place] [address] 12/01/2022 13:27:48 12/01/2022 14:14:16 Carcinoma of prostate 632240833 C61 History of calculus of kidney 303863535 Z87.442 Ureteric stone 17782663 N20.1 [id number] Mima Benítez DO [facility] [address] [facility] [address] [place] [address] 02/24/2023 13:10:06 02/24/2023 13:53:15 Parkinson's disease 79528594 G20 Chronic condition that has progressed . Will increase his rytary dosing. He does not feel he could do tid dosing. He will call if any side effects when on the higher dose.Altho ugh he does not feel he would be able to remember taking the dosing three times a day he might benefit from more frequent dosing if the increase in the current dosing does not help. [id number] Mima Benítez DO [facility] [address] [facility] [address] [place] [address] 08/26/2023 10:54:59 08/26/2023 11:44:25 Parkinson's disease 57680669 G20.A2 Chronic condition that continues to progress. Will continue to titrate up on his rytary dosing. 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 He will call if any side effects when on the higher dose.He denies any current equipment or therapy needs. [id number] Cecilia Boss NP, S [facility] [address] [facility] [place] [address] 01/05/2024 14:43:12 01/05/2024 15:31:18 Carcinoma of prostate 884225469 C61 UA clearPVR 30ccPSA today, will call pt with resultsKUB , will call pt with resultsInc rease Tamsulosin to bidRTC in 3 months for f/u of Tamsulosin ttx History of calculus of kidney 992867570 Z87.442 Ureteric stone 92214047 N20.1 Nocturia 152442938 R35.1 Slowing of urinary stream 11897242 R39.12 [id number] DO Kassandra TomlinsonZ [facility] [address] [place] [address] 02/23/2024 10:54:30 02/23/2024 11:22:49 Parkinson's disease [id number] G20.A2 Chronic condition that continues to progress. Will continue to titrate up on his rytary dosing. He will try tid dosing. He will call with an update in a few weeks. If this is not effective consider adding a dopamine agonist.He denies any current equipment or therapy needs.Fall precaution s reviewed with him today. [id number] Cecilia Boss NP, S [facility] [address] [place] [address] 04/07/2024 10:58:44 04/07/2024 11:31:08 Carcinoma of prostate 462156398 C61 Slowing of urinary stream 88329030 R39.12 Continue Tamsulosin 0.4mg bidRTC in December 2024 for f/u with PSA and KUB Nocturia 755821872 R35.1 History of calculus of kidney 478392080 Z87.866 [id number] Deshaun Nam MD [facility] NEW [address] [place] [address] 10/26/2024 12:52:44 10/26/2024 13:25:46 Chest pain 76610825 R07.9 Given clinical presentati on and risk profile , will get stress test for ischemic evaluation and risk stratifica tion Dyspnea 014980816 R06.00 Echo to evaluate EF, diastolic function, valves and pulmonary pressures Body mass index 30+ - obesity 387451553 Z68.31 Low-carboh ydrate and low-fat diet Increase exercise to 30 minutes a day. Increase fruits and fresh vegetable intake and decrease processed foods and sugars [id number] Deshaun Nam MD [facility] NEW [address] [place] [address] 12/05/2024 12:53:57 12/05/2024 13:41:52 Dyspnea 056602877 R06.00 Cardiac evaluation was unremarkab le. Continue to clinically monitor for now. Body mass index 30+ - obesity 142381339 Z68.31 Low-carboh ydrate and low-fat diet Increase exercise to 30 minutes a day. Increase fruits and fresh vegetable intake and decrease processed foods and sugars [id number] Cecilia Boss NP, S [facility]-1 00 [address] [facility] [address] [place] [address] 01/09/2025 11:22:23 01/09/2025 12:06:30 Carcinoma of prostate 279538670 C61 Pt unable to provide UAPVR 13mlPSA order provided to pt to have performed History of calculus of kidney 037758052 Z87.442 KUB ordere provided to pt to have performed Poor stream of urine 162 772110 R39.12 Continue Tamsulosin 0.4mg bid Nocturia 386591479 R35.1 Urinary incontinence 165 982561 R32 Start Oxybutynin 10mg daily. discussed possible SEs of the medication [id number] Cecilia Boss, MARKOS, S [facility]-[address] [place] [address] 03/13/2025 11:13:39 03/13/2025 11:47:05 Carcinoma of prostate 713770050 C61 Nocturia 716647299 R35.1 Urinary incontinence 165 855143 R32 Continue Oxybutynin 10mg daily. dRTC in 6 months fo r f/u Poor stream of urine 162 610267 R39.12 Continue Tamsulosin 0.4mg bid Health Concerns Section Related Observation LastModified by Organization Detai ls LastModified Time None Recorded Concern Status LastModified by Organization Details LastModified Time None Recorded Advance Directives Directive None Recorded Payers Insurance Date Sequence Insurance Name Policy Number Policy Ricardo Covered Member ID Ricardo Member ID Guarantor Name 03/13/2025 2 [place] [id number] Khushi Benítez [id number] Aaron Benítez 03/12/2025 1 [place] Aaron Benítez [id number] Aaron Benítez 10/26/2024 2 [place] [id number] Khushi Benítez [id number] Aaron Benítez Notes Date Note Type Note Provider Name and Address Organization Details Recorded Time 04/07/2024 text/html 73 yowm RTC for 3 month f/u [...] with h/o Parkinsons, sees Dr Mima Benítez. Previous PSAs: < 0.13 on 12/01/2022 Cecilia Boss NP, S [address], [place], [address], [facility] [place] & [place] 04/07/2024 11:33:29 10/26/2024 text/html 74 M here for evaluation of cp/sobHe was seen in ER and referred to me He woke up acutely with dyspnea assoc with cp - left sides, assoc with dizziness. He was evaluated in the ER these records were reviewed as detailed below. He would negative troponinsHe has severe Parkinson's and has resting tremors, was followed by Neurology Dr. Benítez.No prior CAD/CVANo PND, orthopnea, peripheral edema, palpitations, presyncope, syncope + Obesity BMI >31+ Parkinsons- + social history: Former, nonsmoker EKG 10/22/2024 personally reviewed showed normal sinus rhythm rate of 69 normal axis normal intervalsLabs from the ER 10/22/2024: Potassium 4.4, BUN / creatinine 23/1.1, LFTs normal, hemoglobin/hematocr it 15/46, platelets 310Coronary CTA no pulmonary embolism, mild cardiomegaly no coronary calcification Deshaun Nam MD [address], [place], [address], [facility] & [place] 10/26/2024 14:09:32 12/05/2024 text/html 74 M here for fu evaluation of cp/sobEcho and stress done, these test results discussed with the patient which was unremarkable.Catara ct surgery was done + Obesity BMI >31+ Parkinson s-He has severe Parkinson's and has resting tremors, was followed by Neurology Dr. Benítez. Last visit:He woke up acutely with dyspnea assoc with cp - left sides, assoc with dizziness. +Social history: Former, non smoker ECHO 10/2024Poor quality study.Normal LV size with normal function. The ejection fraction is60-65%. Normal LV filling for age. Nuc 10/2024No evidence of myocardial ischemia.Inferior defect, possibly artifactual given normal inferior wall motion.Calculated EF 54%. EKG 10/22/2024 Normal sinus rhythm rate of 69 normal axis normal intervals Labs from the ER 10/22/2024: Potassium 4.4, BUN / creatinine 23/1.1, LFTs normal, hemoglobin/hematocr it 15/46, platelets 310 Coronary CTA no pulmonary embolism, mild cardiomegaly no coronary calcification Deshaun Nam MD [address], [place], [address], [facility] & [place] 12/05/2024 13:39:06 01/09/2025 text/html 01/09/2025 74 yowm RTC for f/u of history Prostate Cancer, Kidney stones, and weak urinary stream. Pt states he has not had a recent PSA. States urinary stream good, on Tamsulosin 0.4mg bid. Nocturia x 1-2. Denies any dysuria or gross hematuria. approx 2 months ago [facility], was started on a medication and within a few days started experiencing urinary incontinence. States medication was discontinued; however, he is still experiencing urinary incontinence. is wearing a depends and changing them [...] with h/o Parkinsons, sees Dr Mima Benítez. 01/06/2024: PSA < 0.132/: PSA < 0.13 Cecilia Boss NP, S [address], [place], [address], [facility] & [place] 01/09/2025 13:02:48 03/13/2025 text/html 03/13/2025 74 yowm RTC for [...] prostate cancer with Prostatectomy performed per Dr Labm approx 15 years ago.Pt with h/o Parkinsons, sees Dr Mima Benítez. 01/09/2025: PSA < 0.13. KUB no stones seen01/06/2024: PSA < 0.132: PSA < 0.13 Cecilia Boss NP, S [address], [place], [address], [facility] [place] & [place] 03/13/2025 11:59:47
--- OUTSIDE RECORDS SUMMARY | 2025-03-22 09:18 | XMS_ITS | Data Portability ---
Author Organization [facility] FallsEDUARDO Clarke WORLEY CLOSED Address [address] [place] [address] Care Team Providers Care Chick Room Supervisor Name Role Phone MADELEINE MALONEY Primary Care Provider Assessment No assessment recorded. Plan of Treatment Reminders Order Date Submit Date Provider Last Modified By Organization Details Last Modified Time Details Appointments None recorded. Lab PSA, serum or plasma 2018 019 [email or web address] [facility] [address], [address] [place], [place] [address] , [place], [address], 9 15:44:58 urinalysis , dipstick, auto 2017 018 [facility] [place] [address], [address] [place] [address], [place], [address], 8 13:47:33 PSA, serum or plasma 2017 018 [facility], [address] [place] [address], [place], [address], 8 13:47:33 urinalysis , complete 2015 016 [facility], [address] [place], [place] [address], [place], [address], 6 13:14:21 PSA, serum or plasma 2015 016 [facility] [place] [address], [address] [place], [place] [address], [place], [address], 6 13:14:21 Referral None recorded. Procedures None recorded. Surgeries None recorded. Imaging None recorded. Medication Orders sildenafil (pulmonary hypertensi on) 20 mg tablet 2017 018 [id number], [address], [place], [id number], 8 14:08:55 Viagra 100 mg tablet 2015 016 [email or web address] [facility] #[id number], [address] [facility], [place], [address], 8 14:25:49 Patient TargetsNo targets recorded. Patient Instructions Encounter Date Encounter Id Patient Instructions Last Modified By Organization Details Last Modified Time 10/01/2016 [id number] Erection Problems: Care Instructions [email or web address] Not available 10/01/2016 14:22:05 10/16/2017 [id number] prostate cancer: care instructions Not available 10/18/2017 14:08:50 frequent urination: care instructions Not available 10/18/2017 14:10:01 Erection Problems: Care Instructions Not available 10/18/2017 14:08:50 10/20/2018 [id number] frequent urination: care instructions Not available 10/20/2018 15:26:44 Erection Problems: Care Instructions Not available 10/20/2018 15:25:58 Reason for Referral None Reported. Results Created Date Observation Date Name Description Value Unit Range Abnormal Flag Note LastModifiedBy Organization Detail LastModifiedTime 10/16/19 18 10/16/2017 urina lysis , dipst ick, auto Unknown Analyte Yellow Not Available [facility] [address] [place] , [place], [address], 10/16/2017 14:32:30 10/16/19 18 10/16/2017 urina lysis , dipst ick, auto Unknown Analyte Clear Not Available [facility] [address], [place], [address], 10/16/2017 14:32:30 10/16/19 18 10/16/2017 urina lysis , dipst ick, auto Unknown Analyte 1.020 Not Available [facility] [address] [facility], [place], [address], 10/16/2017 14:32:30 10/16/19 18 10/16/2017 urina lysis , dipst ick, auto Unknown Analyte 5.0 Not Available [facility] [address] [facility], [place], [address], 10/16/2017 14:32:30 10/16/19 18 10/16/2017 urina lysis , dipst ick, auto Unknown Analyte Negati ve Not Available [facility] [address] [place], [address], 10/16/2017 14:32:30 10/16/19 18 10/16/2017 urina lysis , dipst ick, auto Unknown Analyte Negati ve Not Available [facility] [address] [facility], [place], [address], 10/16/2017 14:32:30 10/16/19 18 10/16/2017 urina lysis , dipst ick, auto Unknown Analyte Negtiv e Not Available [facility] [address] [facility], [place], [address], 10/16/2017 14:32:30 10/16/19 18 10/16/2017 urina lysis , dipst ick, auto Unknown Analyte Normal Not Available [facility] [address] [place], [address], 10/16/2017 14:32:30 10/16/19 18 10/16/2017 urina lysis , dipst ick, auto Unknown Analyte Negati ve Not Available [facility] [address] [place], [address], 10/16/2017 14:32:30 10/16/19 18 10/16/2017 urina lysis , dipst ick, auto Unknown Analyte Normal Not Available [facility] [address] [facility], [place], [address], 10/16/2017 14:32:30 10/16/19 18 10/16/2017 urina lysis , dipst ick, auto Unknown Analyte Negati ve Not Available [facility] [address] [facility], [place], [address], 10/16/2017 14:32:30 10/16/19 18 10/16/2017 urina lysis , dipst ick, auto Unknown Analyte Negati ve Not Available [facility] [address] [facility], [place], [address], 10/16/2017 14:32:30 10/16/19 18 10/16/2017 urina lysis , dipst ick, auto Unknown Analyte Clean Catch Not Available [facility] [address] [facility], [place], [address], 10/16/2017 14:32:30 10/16/19 18 10/16/2017 urina lysis , dipst ick, auto Unknown Analyte Automa tara Not Available [facility] [address] [place], [address], 10/16/2017 14:32:30 10/01/20 16 10/01/2016 PSA, serum or plasm a PSA <0.04 NG/mL 0.0 - 4.0 Not Available [facility] [address] [facility], [place], [address], 10/01/2016 13:09:47 10/01/20 16 10/01/2016 urina lysis , compl ete Unknown Analyte Clean Catch Not Available [facility] [address] [place], [address], 10/01/2016 11:29:49 10/01/20 16 10/01/2016 urina lysis , compl ete Unknown Analyte Yellow Not Available [facility] [address] [place], [address], 10/01/2016 11:29:49 10/01/20 16 10/01/2016 urina lysis , compl ete Unknown Analyte Clear Not Available [facility] [address] [place], [address], 10/01/2016 11:29:49 10/01/20 16 10/01/2016 urina lysis , compl ete Unknown Analyte 1.025 Not Available [facility] [address] [place], [address], 10/01/2016 11:29:49 10/01/20 16 10/01/2016 urina lysis , compl ete Unknown Analyte 5.0 Not Available [facility] [address] [place], [address], 10/01/2016 11:29:49 10/01/20 16 10/01/2016 urina lysis , compl ete Unknown Analyte 25 Eddy/ul Trace Not Available [facility] [address] [place], [address], 10/01/2016 11:29:49 10/01/20 16 10/01/2016 urina lysis , compl ete Unknown Analyte Negati ve Not Available [facility] [address] [place], [address], 10/01/2016 11:29:49 10/01/20 16 10/01/2016 urina lysis , compl ete Unknown Analyte Negati ve Not Available [facility] [address] [facility] [place], [address], 10/01/2016 11:29:49 10/01/20 16 10/01/2016 urina lysis , compl ete Unknown Analyte Normal Not Available [facility] [address] [facility], [place], [address], 10/01/2016 11:29:49 10/01/20 16 10/01/2016 urina lysis , compl ete Unknown Analyte Negati ve Not Available [facility] [address] [facility], [place], [address], 10/01/2016 11:29:49 10/01/20 16 10/01/2016 urina lysis , compl ete Unknown Analyte Normal Not Available [facility] [address] [place], [address], 10/01/2016 11:29:49 10/01/20 16 10/01/2016 urina lysis , compl ete Unknown Analyte Negati ve Not Available [facility] [address] [facility], [place], [address], 10/01/2016 11:29:49 10/01/20 16 10/01/2016 urina lysis , compl ete Unknown Analyte Negati ve Not Available [facility] [address] [facility], [place], [address], 10/01/2016 11:29:49 10/01/20 16 10/01/2016 urina lysis , compl ete Unknown Analyte Automa tara Not Available [facility] [address] [facility], [place], [address], 10/01/2016 11:29:49 10/01/20 16 10/01/2016 urina lysis , compl ete Unknown Analyte Occ Not Available [facility] [address] [facility], [place], [address], 10/01/2016 11:29:49 10/01/20 16 10/01/2016 urina lysis , compl ete Unknown Analyte Occ Not Available / [facility] [address] [place], [address], 10/01/2016 11:29:49 10/01/20 16 10/01/2016 urina lysis , compl ete Unknown Analyte None Seen Not Available [facility] [address] [place], [address], 10/01/2016 11:29:49 10/01/20 16 10/01/2016 urina lysis , compl ete Unknown Analyte None Seen Not Available Cu/ [facility] [address] [place], [address], 10/01/2016 11:29:49 10/16/19 18 10/16/2017 PSA, serum or plasm a PSA <0.04 NG/mL 0.0 - 4.0 Not Available Cu/ [facility] [address] [place], [address], 10/16/2017 15:17:38 10/20/19 19 10/20/2018 PSA, serum or plasm a PSA <0.04 NG/mL 0.0 - 4.0 Not Available / [facility] [address] [place], [address], 10/20/2018 15:44:39 Result Notes None recorded. Problems No Known Problems Procedures Surgical History Date Name Laterality Status Provider Name and Address Organization Details Recorded Time 10/16/19 18 Post Void Residual; Ultrasound completed Selene Haywood [facility] 10/16/2017 15:00:52 Prostate Surgery completed Emperatriz [facility] 10/01/2016 11:22:15 Hernia Repair completed [facility] 10/01/2016 11:22:48 Other completed [facility] 10/01/2016 11:23:08 Appendectomy completed Emperatriz Siddiqui [facility] 10/01/2016 11:23:22 Other completed Emperatriz INFANTE [facility] 10/01/2016 11:23:40 Other completed Emperatriz INFANTE Yasmin [facility] 10/01/2016 11:24:20 Other completed Emperatriz Siddiqui [facility] 10/01/2016 11:26:29 Imaging Results None recorded. Procedure Notes None recorded. Medical Equipment None Reported. Allergies No known drug allergies Medications Name Sig Start Date Stop Date Status Note LastModified by Organization Details LastModified Time Viagra 100 mg tablet Take 1 tablet every day by oral route. 10/16 completed Not Available Not Available Not Available sildenafil (pulmonary hypertension ) 20 mg tablet 2017 active Not Available Not Available Not Avai lable Vitals Date Recorded Body height Body mass index (BMI) Body weight Systolic blood pressure Diastolic blood pressure Provider Name and Address Organization Details Last Updated DateTime 10/16/2017 185.42 cm 31.7 kg/m2 331594.1 7 g 118 mm[Hg] 84 mm[Hg] Kathryn Alanna [facility] 8 14:26:05 Date Recorded Body height Body mass index (BMI) Body weight Systolic blood pressure Diastolic blood pressure Provider Name and Address Organization Details Last Updated DateTime 10/20/2018 185.42 cm 31.7 kg/m2 320641.1 7 g 120 mm[Hg] 84 mm[Hg] Radha James [facility] 9 14:07:29 Date Recorded Body height Body weight Body mass index (BMI) Systolic blood pressure Diastolic blood pressure Provider Name and Address Organization Details Last Updated DateTime 10/01/2016 185.42 cm 628598.1 7 g 31.7 kg/m2 142 mm[Hg] 90 mm[Hg] Emperatriz Siddiqui [facility] 6 11:06:47 Social History Question Answer Notes LastModified by Organizat ion Details LastModified Time Tobacco Smoking Status Former Smoker pipe- [facility]2016 11:09:30 Marital Status Information not available 10/01/2016 What Was The Date Of Your Most Recent Tobacco Screening? 10/20/2018 Information not available 11/29/2019 Sex: Unknown Functional Status Question Answer Note LastModified by Organizat ion Details LastModified Time What is your level of alcohol consumption? beer- 1 /week Information not available 10/01/2016 What is your occupation? retired Information not available 10/01/2016 Mental Status None recorded. Family History Relationship Description Onset Age of this Age Resolved Age Notes LastModified by Organization Details LastModified Time Father Malignant neoplasm of prostate hstrang Not available 2015 11:08:56 Mother Family history of malignant neoplasm breast hstrang Not available 2015 11:09:08 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 Condition Response Allergies/Hayfever Cancer Prostate Y Heart Attack (DC) Y Past Encounters Encounter ID Performer Location Encounter Start Date Encounter Closed Date Diagnosis/Indication Diagnosis SNOMED-CT Code Diagnosis ICD10 Code Diagnosis Note [id number] SIVA BARTLETT MD [facility] [address] [place] [address] 10/01/2016 09:55:48 10/01/2016 15:19:38 Malignant neoplasm of prostate 560322280 C61 Pt's last PsA 0.1 a yr ago. Will repeat. Impotence 083433533 N52. 9 Discussed various alternativ es for tx including oral meds, vacuum device and IC injections . [id number] SIVA BARTLETT MD [facility] [address] [place] [address] 10/16/2017 14:00:29 10/18/2017 14:43:54 Malignant neoplasm of prostate 333414186 C61 Pt doing well after surgery and XRT for a PSA recurrence . PSA today. Impotence of organic origin 771978168 N52.9 rx for Sildenafil given today Increased frequency of urination 514529651 R35.0 Bladder scan 0 cc. Pt reassured he is emptying well. [id number] SIVA BARTLETT MD [facility] [address] [place] [address] 10/20/2018 13:30:15 10/22/2018 12:25:12 Carcinoma of prostate 015418383 C61 Pt with h/o perineal prostatect richie by Dr Lamb. XRT after PsA recurrence . Last PsA 0. PsA today. Impotence of organic origin 570399212 N52.9 rx for Sildenafil given today Increased frequency of urination 658492532 R35.0 Bladder scan 0 cc last yr. Pt drinks a lot of soda and we discussed decreasing his caffeine intake. Health Concerns Section Related Observation LastModified by Organization Detai ls LastModified Time None Recorded Concern Status LastModified by Organization Details LastModified Time None Recorded Advance Directives Directive None Recorded Payers Insurance Date Sequence Insurance Name Policy Number Policy Ricardo Covered Member ID Ricardo Member ID Guarantor Name 10/20/2018 1 [place]ARE[place] Michaelsimone Benítez [id number] Michael Benítez 10/17/2018 2 [place] [facility] [id number] Khushi No Benítez [id number] Michael Benítez Notes Date Note Type Note Provider Name and Address Organization Details Recorded Time 10/01/2016 text/html 66 yo male, new patient, present to establish care for prostate cancer. He was diagnosed in 2011 and treated initially with radical perineal prostatectomy(Nabeel hummel). He completed 36 radiation treatments for PSA recurrence in 2013. His most recent PSA was in September of last year and was 0.1 by his report. His weight is stable and he has no bone pain. he is voiding well. He has nocturia x1, no dysuria or gross hematuria. He continues to complain of fecal urgency but is better after sphincteroplasty by Danica in 2013. 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 He has not been treated. SIVA BARTLETT MD [address] [place] [address], [address], [facility] 10/01/2016 13:16:50 10/16/2017 text/html 67 yr old male h ere for yearly f/u for h/o prostate cancer treated by Dr. Richards in 2011 with an radical perineal prostatectomy and radiation that was completed after a PSA recurrence in 2013. His most recent PSA was <0.04ng/ml at last visit on 09/2016. He c/o increased frequency and nocturia 3-4x. He denies any wt loss or bone pain. He is here for PSA today. He has ED but never got Viagra filled due to cost. Denies leakage. SIVA BARTLETT MD [facility] [place], [address], [facility] 10/18/2017 14:11:19 10/20/2018 text/html 68 yr old male h ere for yearly f/u for h/o prostate cancer treated by Dr. Richards in 2011 with a radical perineal prostatectomy and radiation that was completed after a PSA recurrence in 2013. His most recent PSA was <0.04ng/ml on 10/2017. He continues to have nocturia 1-2x. He denies any leakage. He has new c/o nocturia 1-2x, frequency He does have ED since surgery and has no erections at all. He has tried a med in past that he cannot recall the name of. It did not work. MD Neal [address] [place], [address], [facility] 10/20/2018 17:36:40
[2025-03-22 09:42] VITALS: BP 130/75; PULSE 85; RESP 14; O2SAT 96; BMI 30.3
--- NOTE | 2025-03-22 09:54 | EXP.PAIN.SOA ---
[facility] Disclaimer: The information contained in this section may have been updated after the patient was seen, as this information can be updated by other users. 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) Parkinson disease Bladder stone Peripheral neuropathy Arthritis Surgical History , UNIX ADMINISTRATOR) History of total replacement of right shoulder joint H/O thumb surgery H/O hand surgery H/O elbow surgery H/O shoulder surgery Hx of appendectomy Family History , UNIX ADMINISTRATOR) Gout Cancer Social History Smoking Status: Never smoker alcohol intake: former substance use type: denies use current occupational status: other Travel in the last 8 weeks?: None household members: spouse housing: house PM Subjective & Objective Subjective Subjective:: Patient is a pleasant 74-year-old male who presents today for follow-up of his bilateral occipital nerve blocks on 02/28/2025. Today he rates his pain a 1 out of 10. Patient states that he has had at least 90% improvement following this injection and feels so much better. Patient states that has not had any falls or injuries from her last appointment and overall is doing well. His Shawn has been reviewed and is appropriate. Review of Systems: General: No recent weight changes, no fever, no sleep disturbances Respiratory: No cough, no shortness of air, no recurring pulmonary infections Cardiovascular/peripheral vascular: No chest pain, no palpitations, no edema, no shortness of breath Gastrointestinal: No new onset incontinence, normal bowel movements reported Genitourinary: No new onset incontinence Musculoskeletal: Headaches neck pain Psychiatric: [Normal mood/affect] Neurological: [Denies weakness in extremities], [denies balance issues] Pain at rest (0-10 scale): 1 Objective Objective:: Physical Exam: General: Alert and oriented x3, no acute distress, pleasant and cooperative Lungs: Respirations even and unlabored, symmetrical chest expansion Eyes: PERRL Musculoskeletal: Flexion and extension of cervical spine within normal limits Neurological: Speech clear, no gross sensory deficit Has patient had previous pain injection?: Yes Percent improvement in pain since last injection: 90% Conservative treatment options previously tried: Home exercise plan Length of treatment: Longer than 12 weeks Meds Home Medications and Allergies Home Medications ?Medication ?Instructions ?Recorded ?Confirmed ?Type tamsulosin 0.4 mg capsule 0.4 mg PO BID URINATION 08/03/24 03/22/25 History carbidopa ER 61.25 mg-levodopa 245 2 cap PO TID PARKINSONS #540 caps 01/17/25 03/22/25 Rx mg capsule,extended release (Rytary) pregabalin 75 mg capsule 75 mg PO BID #180 caps 02/06/25 03/22/25 Rx lidocaine 5 % topical patch 1 patch topical DAILY #30 ea 02/10/25 03/22/25 Rx tizanidine 2 mg tablet 2 mg PO BID #60 tabs 02/10/25 03/22/25 Rx ketorolac 10 mg tablet 10 mg PO Q8H PRN pain #15 tabs 02/23/25 03/22/25 Rx New Prescriptions to Start Prescriptions: Allergies Allergy/AdvReac Type Severity Reaction Status Date / Time aspirin (From [facility]WA Aspirin) Allergy Verified 01/17/25 13:20 Assessment and Plan *Assessment and plan (1) Bilateral occipital neuralgia: Status: Acute Category: Medical Code(s): M54.81 - Occipital neuralgia (2) Myofascial pain: Status: Acute Category: Medical Code(s): M79.18 - Myalgia, other site Plan Patient has had significant improvement following his occipital nerve blocks and does not require any additional injection therapy at this time. Patient will return to clinic in 6 weeks for reevaluation of symptoms and plan of care. Patient has been instructed to contact the clinic with any concerns before the next appointment. Dr. Lopez has reviewed this note and agrees with this plan of care. This note was dictated using voice recognition software and make contain errors or omissions. All injections are used with Lidocaine, Bupivacaine and dexamethasone. Occasionally urine drug screen is needed to verify patient's compliance with our office pain contract. This is ordered based off specific treatments related to chronic pain with the potential to abuse certain medications.
== END 2025-03-22 23:59 | disposition home or self-care (01) ==
PROVIDERS: PCP Internal Medicine; Visit Provider Nurse Practitioner Family
DX: M54.81 Occipital neuralgia (principal); M79.18 Myalgia, other site
CPT/HCPCS: 94762; 99212; G0463

== ENCOUNTER 2025-05-03 08:33 | Outpatient (POV) | payer MEDICARE, SELFPAY ==
--- OUTSIDE RECORDS SUMMARY | 2025-05-03 08:37 | XMS_ITS | Referral Summary ---
Author Organization [employer] ([place], [place], [place], [place]) Address [address] [place] [address] Care Team Providers Care Tube Knitter Name Role Phone Unavailable Primary Care Provider [...]
--- OUTSIDE RECORDS SUMMARY | 2025-05-03 08:37 | XMS_ITS | Clinical Summary ---
Author Organization [employer] ([place], [place], [place], [place]) Address [address] [place] [address] Care Team Providers Care Computer Numerical Control Programmer Name Role Phone Unavailable Primary Care Provider [...]
--- OUTSIDE RECORDS SUMMARY | 2025-05-03 08:37 | XMS_ITS | Encounter Summary ---
Author Organization [facility] Address [address] [place] [address] Care Team Providers Care Business Excellence Leader Name Role Phone Unavailable Primary Care Provider Unavailabl e Encounter Details Date Type Department Care Team (Late st Contact Info) Description 11/07/2013 Conversion Encounter [facility] [address] [place] [address] Interface, See Report Social History Tobacco Use Types Packs/Day Years Used Date Smoking Tobacco: Never Assessed Sex and Gender Information Value Date Recorded Sex Assigned at Not on file Legal Sex Male 1:26 PM EDT Gender Identity Not on file Sexual Orientation Not on file documented as of this encounter Consult Notes * Interface, See Report - 11/07/2013 1:11 PM EST CONSULTATION NOTE RE. PATIENT: AARON BENÍTEZ MED. REC.#: [id number] : 1950 DATE OF CONSULTATION: 11/07/2013 REFERRING PHYSICIAN: Tiarra Richards M.D. REASON FOR CONSULTATION: Prostate cancer, rising PSA after prostatectomy. PERTINENT HISTORY: This is a 63-year-old male who is status post prostatectomy in 08/01/2010. I do not have his presurgery PSA. However pathology showed bilateral adenocarcinoma Kalpesh 3 + 4 = 7 involving 6% of the right lobe and 5% of the left lobe. Surgical margins were free, seminal vesicles were free, and there was no evidence of lymphvascular or perineural invasion. Unfortunately, he had a recent slow rise in PSA from 0.1 to 0.2 to 0.3 ng/mL on 10/21/2013. CT scans of the abdomen and pelvis performed 11/03/2013 showed no acute change and no evidence of metastatic disease. He does have postsurgical change, but no pathologic adenopathy. Past medical history is complicated by multiple surgical procedures including ruptured appendix in 2006, multiple hernia repairs, and chronic abdominal/pelvic pain. He is status post sphincteroplasty 06/2012 for anal incontinence. REVIEW OF SYSTEMS: Reveals primarily chronic pain. He has mild urinary frequency, but no incontinence of urine or dysuria. He has urgency with bowel movements and some episodes of diarrhea, but has regained most continence. PERTINENT PHYSICAL EXAMINATION: VITAL SIGNS: Weight 244 pounds. Blood pressure 157/101. Temperature 98.2. Pulse 77. Respirations 16. GENERAL: Condition: Good. KPS: 90%. Pain 5/10. Distress /10. LYMPHATICS: No palpable adenopathy. LUNGS: Clear to auscultation. HEART: Regular rate and rhythm. ABDOMEN: Diffuse tenderness, especially in the right upper quadrant, but without mass. BACK: No pain on palpation over the spine or flanks. EXTREMITIES: No pedal edema. Status post left knee surgery. NEUROLOGIC: No focal deficits although he does ambulate with a limp. RECTAL: No hemorrhoids. The sphincter is moderately lax. Tissues are soft and pliable. There is some midline nodularity inferiorly in the prostate bed. There is also some more smooth slightly rounded/oval elevation in the right upper prostate/seminal vesicle bed. This is nontender and difficult to say if it represents tumor versus postsurgical/fibrosis change. CONSULTATION NOTE RE. PATIENT: AARON BENÍTEZ [facility]. REC.#: [id number] : 1950 DATE OF CONSULTATION: 11/07/2013 The patient's whole History and Physical Examination, including patient intake form, was reviewed by me today and is present in the chart. IMPRESSION: Prostate cancer with late biochemical recurrence after prostatectomy. He did have intermediate grade disease, but no other high risk features. He is most likely to have recurrent prostate cancer within the prostate/seminal vesicle bed. I would like to order total body bone scan and MRI of the pelvis to complete his staging work-up. The MRI can be used for radiation treatment planning if a suspicious focus is identified. Even with completely negative studies, if there is no convincing evidence of distant metastatic disease, he would be a candidate for definitive treatment with salvage radiotherapy to the lower pelvis. He would have a somewhat increased risk due to his prior multiple abdominal/pelvic procedures. However, that has to be balanced against the chance for long-term control of his prostate cancer. PLAN: 1. Total body bone scan. 2. MRI of the pelvis. 3. Reevaluation with me after the scans. Sincerely, José Manuel Hart M.D.* ACB/rxalw Voice Rec ID: #[id number] Original Voice Rec ID: #[id number] Document ID: #[id number] Rev. #0 cc: Tung Richards M.D.* Candelaria Braden M.D.* DO NOT TEXT EDIT THIS LINE :SPINNING ROOM WORKER:[id number]: Authenticated by JOSÉ MANUEL HART MD On 11/11/2013 02:15:28 PM documented in this encounter Plan of Treatment Not on file documented as of this encounter Visit Diagnoses Not on filedocumented in this encounter
--- OUTSIDE RECORDS SUMMARY | 2025-05-03 08:37 | XMS_ITS | Clinical Summary ---
Author Organization [facility] Address [address] [place] [address] Care Team Providers Care County Bailiff Name Role Phone Unavailable Primary Care Provider Unavailabl e Social History Tobacco Use Types Packs/Day Years Used Date Smoking Tobacco: Never Assessed Abuse Screen Answer Date Recorded Unsafe at Home or Work/School Not on file Feels Threatened by Someone? Not on file 06/2023 Does Anyone Keep You from Co ntacting Others or Doint Things Outside the Home? Not on file 07/20/2023 Physical Sign of Abuse Present Not on file 1 Housing Stability Answer Date Recorded Current Living Arrangements Not on file 06/2023 Potentially Unsafe Housing Conditions Not on mary e 07/20/2023 Family and Community Support Answer Horace e Recorded Help with Day-to-Day Activities Not on file 07/20/2023 Lonely or Isolated Not on file 07/20/2023 Employment Answer Date Recorded Do you want help finding or keeping work or a arya b? Not on file 07/20/2023 Disabilities Answer Date Recorded Concentrating, Remembering, or Making Decisions Difficulty Not on file 07/20/2023 Doing Errands Independently Difficulty Not on fi le 07/20/2023 Education Answer Date Recorded Help with school or training? Not on file Preferred Language Not on file 07/20/2023 Sex and Gender Information Value Date Recorded Sex Assigned at Not on file Legal Sex Male 1:26 PM EDT Gender Identity Not on file Sexual Orientation Not on file Plan of Treatment Health Maintenance Due Date Last Done Comments ANNUAL PHYSICAL 1950 HEPATITIS C SCREENING 1950 TDAP/TD VACCINES (1 - Tdap) 1968 COLOGUARD 1994 COLON CANCER SCREENING 5 YEAR SIGMOIDOSCOPY 1994 COLONOSCOPY 1994 [address] CANCER SCREENING 1994 CT COLONOGRAPHY 1994 FECAL OCCULT BLOOD TEST 1994 FIT Testing (1 year) 1994 Pneumococcal Vaccine 50+ (1 of 1 - PCV) 1999 ZOSTER VACCINE (1 of 2) 1999 RSV Vaccine - Adults (1 - 1-dose 75+ series) COVID-19 Vaccine (1 - 2023-25 season) 2024 INFLUENZA VACCINE 07/12/2025 AAA SCREEN ONCE Completed 06/05/2014 Procedures Procedure Name Priority Date/Time Associated Diagnosis Comments CT ABDOMEN PELVIS W CONTRAST Routine 06/05/2014 10:58 AM EDT from Last 3 Months or Most Recently Relevant to Health Maintenance Results * CT ABDOMEN PELVIS WITH CONTRAST (06/05/2014 10:58 AM EDT) Anatomical Region Laterality Modality Body N/A Computed Tomogra phy 06/05/2014 10:5 8 AM EDT Narrative 06/05/2014 1:[address] SCAN OF THE ABDOMEN AND PELVIS ENHANCED HISTORY: Abdominal pain, prostate cancer CT scan of the abdomen and pelvis was performed after oral and intravenous contrast. The radiation dose reduction device was turned on for each scan per the ALARA (As Low as Reasonably Achievable) protocol. COMPARISON: There is no prior scan for comparison. FINDINGS: The most superior images demonstrate no evidence of basilar pulmonary infiltrate or pleural effusion. The liver and spleen are normal. There is no adrenal or pancreatic mass. There is no renal mass, stone or obstruction. There is no ascites, aneurysm or retroperitoneal lymphadenopathy. There is no pelvic mass or fluid. There is no inguinal lymphadenopathy. There are postoperative changes related to inguinal herniorrhaphy bilaterally. There are degenerative changes of the lumbar spine. There is no blastic disease noted in the lumbar spine or pelvis. IMPRESSION- Normal examination. E: 06/05/2014 Reading Radiologist- Olive RAMOS Releasing Radiologist- Olive RAMOS Released Date Time- 06/05/14 1531 Inspector Glass Or Mirror- Terrie Procedure Note Remy Nolan MD - 07/04/2015 CT SCAN OF THE ABDOMEN AND PELVIS ENHANCED HISTORY: Abdominal pain, prostate cancer CT scan of the abdomen and pelvis was performed after oral and intravenous contrast. The radiation dose reduction device was turned on for each scan per the ALARA (As Low as Reasonably Achievable) protocol. COMPARISON: There is no prior scan for comparison. FINDINGS: The most superior images demonstrate no evidence of basilar pulmonary infiltrate or pleural effusion. The liver and spleen are normal. There is no adrenal or pancreatic mass. There is no renal mass, stone or obstruction. There is no ascites, aneurysm or retroperitoneal lymphadenopathy. There is no pelvic mass or fluid. There is no inguinal lymphadenopathy. There are postoperative changes related to inguinal herniorrhaphy bilaterally. There are degenerative changes of the lumbar spine. There is no blastic disease noted in the lumbar spine or pelvis. IMPRESSION- Normal examination. E: 06/05/2014 Reading Radiologist- Olive RAMOS Releasing Radiologist- Olive RAMOS Released Date Time- 06/05/14 1531 Inspector Glass Or Mirror- Terrie Bartolome Siegel MD [facility] [place] CT ORDERABLES Final Result from Last 3 Months or Most Recently Relevant to Health Maintenance
--- OUTSIDE RECORDS SUMMARY | 2025-05-03 08:37 | XMS_ITS | Encounter Summary ---
Author Organization [facility] yste Address [address] [place] [address] Care Team Providers Care Track Service Person Name Role Phone Unavailable Primary Care Provider Unavailabl e Encounter Details Date Type Department Care Team (Late st Contact Info) Description 11/25/2013 Conversion Encounter [facility] [address] [place] [address] Interface, See Report Social History Tobacco Use Types Packs/Day Years Used Date Smoking Tobacco: Never Assessed Sex and Gender Information Value Date Recorded Sex Assigned at Not on file Legal Sex Male 1:26 PM EDT Gender Identity Not on file Sexual Orientation Not on file documented as of this encounter Consult Notes * Interface, See Report - 11/25/2013 10:28 AM EST RE-EVALUATION NOTE RE. PATIENT: AARON BENÍTEZ MED. REC.#: [id number] : 1950 DATE: 11/25/2013 HISTORY: The patient returns today to discuss the restaging imaging studies for biochemical recurrence after prostatectomy. The patient has recently been experiencing some increase in his chronic intermittent lower anterior pelvic pain. He does have a history of adhesions. He is not on any special diet. Bone scan showed multiple abnormalities, all consistent with degenerative change. There is no convincing evidence of bony metastatic disease. MRI of the pelvis showed postprostatectomy changes. There again is no definite evidence of pathologic adenopathy or mass. There are a couple of small subcentimeter areas of abnormality in the prostate bed. These are suspicious but nondiagnostic. They will be included in the radiation planning volume. History and examination is otherwise unchanged. IMPRESSION: We will proceed with salvage radiotherapy to the prostate bed/lower pelvis. PLAN: 1. CT simulation will be performed today. We will proceed with salvage radiotherapy in approximately 1 week. 2. Dietitian consultation will be arranged. His chronic bowel symptoms may be helped with dietary modification, probiotics, or other changes since my understanding is that he is no longer a candidate for additional surgical interventions for bowel adhesions. He does understand that radiotherapy can further add to scar tissue formation. Sincerely, José Manuel Hart MD* FLORIN/rxalw Voice Rec ID #[id number] Original Voice Rec ID: #[id number] Doc ID #[id number] Rev. #0 cc: Tung Richards M.D.* Candelaria Braden M.D.* DO NOT TEXT EDIT THIS LINE :PROGRAM MANAGEMENT SPECIALIST:[id number]: Authenticated by JOSÉ MANUEL HART MD On 11/29/2013 01:19:44 PM documented in this encounter Plan of Treatment Not on file documented as of this encounter Visit Diagnoses Not on filedocumented in this encounter
--- OUTSIDE RECORDS SUMMARY | 2025-05-03 08:37 | XMS_ITS | Data Portability ---
Author Organization NARESH EDUARDO Contreras [place] [facility]OS[facility] Address [address] [facility] [address] [place] [address] Care Team Providers Care Sliver Lapper Name Role Phone MADELEINE MALONEY Primary Care Provider [phone] Assessment No assessment recorded. Plan of Treatment Reminders Order Date Submit Date Provider Last Modified By Organization Details Last Modified Time Details Appointments None recorded. Lab PSA, serum or plasma 2018 019 [email or web address] [id number] [facility], [address] [place], [place] [address], [place], [address], 9 15:44:58 urinalysis , dipstick, auto 2017 018 [facility], [address] [place] [address], [place], [address], 8 13:47:33 PSA, serum or plasma 2017 018 [facility], [address] [place] [address], [place], [address], 8 13:47:33 urinalysis , complete 2015 016 [facility], [address] [place] [address], [place], [address], 6 13:14:21 PSA, serum or plasma 2015 016 [facility], [address] [place] [address], [place], [address], 6 13:14:21 Referral None recorded. Procedures None recorded. Surgeries None recorded. Imaging None recorded. Medication Orders sildenafil (pulmonary hypertensi on) 20 mg tablet 2017 018 [id number], [address] [facility], [place], [place], [id number], 8 14:08:55 Viagra 100 mg tablet 2015 016 [email or web address] [facility][id number], [address] [facility], [place], [address], 8 14:25:49 Patient TargetsNo targets recorded. Patient Instructions Encounter Date Encounter Id Patient Instructions Last Modified By Organization Details Last Modified Time 10/01/2016 [id number] Erection Problems: Care Instructions [email or web address] Not available 10/01/2016 14:22:05 10/16/2017 [id number] prostate cancer: care instructions Not available 10/18/2017 14:08:50 frequent urination: care instructions Not available 10/18/2017 14:10:01 Erection Problems: Care Instructions Not available 10/18/2017 14:08:50 10/20/2018 [id number] frequent urination: care instructions Not available 10/20/2018 15:26:44 Erection Problems: Care Instructions Not available 10/20/2018 15:25:58 Reason for Referral None Reported. Results Created Date Observation Date Name Description Value Unit Range Abnormal Flag Note LastModifiedBy Organization Detail LastModifiedTime 10/16/19 18 10/16/2017 urina lysis , dipst ick, auto Unknown Analyte Yellow Not Available [facility] [address] [place], [address], 10/16/2017 14:32:30 10/16/19 18 10/16/2017 urina lysis , dipst ick, auto Unknown Analyte Clear Not Available [facility] [address] [place], [address], 10/16/2017 14:32:30 10/16/19 18 10/16/2017 urina lysis , dipst ick, auto Unknown Analyte 1.020 Not Available [facility] [address] [facility], [place], [address], 10/16/2017 14:32:30 10/16/19 18 10/16/2017 urina lysis , dipst ick, auto Unknown Analyte 5.0 Not Available [facility] [address] [facility], [place], [address], 10/16/2017 14:32:30 10/16/19 18 10/16/2017 urina lysis , dipst ick, auto Unknown Analyte Negati ve Not Available [facility] [address] [place], [address], 10/16/2017 14:32:30 10/16/19 18 10/16/2017 urina lysis , dipst ick, auto Unknown Analyte Negati ve Not Available [facility] [address] [facility], [place], [address], 10/16/2017 14:32:30 10/16/19 18 10/16/2017 urina lysis , dipst ick, auto Unknown Analyte Negtiv e Not Available [facility] [address] [place], [address], 10/16/2017 14:32:30 10/16/19 18 10/16/2017 urina lysis , dipst ick, auto Unknown Analyte Normal Not Available [facility] [address] [place], [address], 10/16/2017 14:32:30 10/16/19 18 10/16/2017 urina lysis , dipst ick, auto Unknown Analyte Negati ve Not Available [facility] [address] [place], [address], 10/16/2017 14:32:30 10/16/19 18 10/16/2017 urina lysis , dipst ick, auto Unknown Analyte Normal Not Available [facility] [address] [facility], [place], [address], 10/16/2017 14:32:30 10/16/19 18 10/16/2017 urina lysis , dipst ick, auto Unknown Analyte Negati ve Not Available [facility] [address] [facility], [place], [address], 10/16/2017 14:32:30 10/16/19 18 10/16/2017 urina lysis , dipst ick, auto Unknown Analyte Negati ve Not Available [facility] [address] [place] [address], [address], 10/16/2017 14:32:30 10/16/19 18 10/16/2017 urina lysis , dipst ick, auto Unknown Analyte Clean Catch Not Available [facility] [address] [place], [address], 10/16/2017 14:32:30 10/16/19 18 10/16/2017 urina lysis , dipst ick, auto Unknown Analyte Automa tara Not Available [facility] [address] [place], [address], 10/16/2017 14:32:30 10/01/20 16 10/01/2016 PSA, serum or plasm a PSA <0.04 NG/mL 0.0 - 4.0 Not Available [facility] [address] [facility], [place], [address], 10/01/2016 13:09:47 10/01/20 16 10/01/2016 urina lysis , compl ete Unknown Analyte Clean Catch Not Available [facility] [address] [facility], [place], [address], 10/01/2016 11:29:49 10/01/20 16 10/01/2016 urina lysis , compl ete Unknown Analyte Yellow Not Available [facility] [address] [place], [address], 10/01/2016 11:29:49 10/01/20 16 10/01/2016 urina lysis , compl ete Unknown Analyte Clear Not Available [facility] [address] [facility], [place], [address], 10/01/2016 11:29:49 10/01/20 16 10/01/2016 urina lysis , compl ete Unknown Analyte 1.025 Not Available [facility] [address] [place] [address], [address], 10/01/2016 11:29:49 10/01/20 16 10/01/2016 urina lysis , compl ete Unknown Analyte 5.0 Not Available [facility] [address] [place], [address], 10/01/2016 11:29:49 10/01/20 16 10/01/2016 urina lysis , compl ete Unknown Analyte 25 Eddy/ul Trace Not Available [facility] [address] [place], [address], 10/01/2016 11:29:49 10/01/20 16 10/01/2016 urina lysis , compl ete Unknown Analyte Negati ve Not Available [facility] [address] [place], [address], 10/01/2016 11:29:49 10/01/20 16 10/01/2016 urina lysis , compl ete Unknown Analyte Negati ve Not Available [facility] [address] [facility], [place], [address], 10/01/2016 11:29:49 10/01/20 16 10/01/2016 urina lysis , compl ete Unknown Analyte Normal Not Available [facility] [address] [facility], [place], [address], 10/01/2016 11:29:49 10/01/20 16 10/01/2016 urina lysis , compl ete Unknown Analyte Negati ve Not Available [facility] [address] [facility], [place], [address], 10/01/2016 11:29:49 10/01/20 16 10/01/2016 urina lysis , compl ete Unknown Analyte Normal Not Available [facility] [address] [place], [address], 10/01/2016 11:29:49 10/01/20 16 10/01/2016 urina lysis , compl ete Unknown Analyte Negati ve Not Available [facility] [address] [place], [address], 10/01/2016 11:29:49 10/01/20 16 10/01/2016 urina lysis , compl ete Unknown Analyte Negati ve Not Available [facility] [address] [place], [address], 10/01/2016 11:29:49 10/01/20 16 10/01/2016 urina lysis , compl ete Unknown Analyte Automa tara Not Available [facility] [address] [place], [address], 10/01/2016 11:29:49 10/01/20 16 10/01/2016 urina lysis , compl ete Unknown Analyte Occ Not Available [facility] [address] [place], [address], 10/01/2016 11:29:49 10/01/20 16 10/01/2016 urina lysis , compl ete Unknown Analyte Occ Not Available [facility] [address] [place], [address], 10/01/2016 11:29:49 10/01/20 16 10/01/2016 urina lysis , compl ete Unknown Analyte None Seen Not Available [facility] [address] [place], [address], 10/01/2016 11:29:49 10/01/20 16 10/01/2016 urina lysis , compl ete Unknown Analyte None Seen Not Available [facility] [address] [place], [address], 10/01/2016 11:29:49 10/16/19 18 10/16/2017 PSA, serum or plasm a PSA <0.04 NG/mL 0.0 - 4.0 Not Available / [facility]rology [facility] [address] [place], [address], 10/16/2017 15:17:38 10/20/19 19 10/20/2018 PSA, serum or plasm a PSA <0.04 NG/mL 0.0 - 4.0 Not Available / [facility]rology [facility] [address] [place] [address], [address], 10/20/2018 15:44:39 Result Notes None recorded. Problems No Known Problems Procedures Surgical History Date Name Laterality Status Provider Name and Address Organization Details Recorded Time 10/16/19 18 Post Void Residual; Ultrasound completed Selene Haywood [facility] 10/16/2017 15:00:52 Prostate Surgery completed [facility] 10/01/2016 11:22:15 Hernia Repair completed [facility] 10/01/2016 11:22:48 Other completed Emperatriz Artur [facility] 10/01/2016 11:23:08 Appendectomy completed Emperatriz Siddiqui [facility] 10/01/2016 11:23:22 Other completed Emperatriz INFANTE Yasmin [facility] 10/01/2016 11:23:40 Other completed Emperatrizchas INFANTE [facility] 10/01/2016 11:24:20 Other completed Emperatriz INFANTE Yasmin [facility] 10/01/2016 11:26:29 Imaging Results None recorded. Procedure [...] Body mass index (BMI) Body weight Systolic And Diastolic Provider Name and Address Organization Details Last Updated DateTime 10/16/2017 185.42 cm 31.7 kg/m2 222106.17 g 118/84 mm[Hg] Kathryn Alanna [facility] 10/16/2017 14:26:05 Date Recorded Body height Body mass index (BMI) Body weight Systolic And Diastolic Provider Name and Address Organization Details Last Updated DateTime 10/20/2018 185.42 cm 31.7 kg/m2 492543.17 g 120/84 mm[Hg] Radha James [facility] 10/20/2018 14:07:29 Date Recorded Body height Body weight Body mass index (BMI) Systolic And Diastolic Provider Name and Address Organization Details Last Updated DateTime 10/01/2016 185.42 cm 793610.17 g 31.7 kg/m2 142/90 mm[Hg] Emperatriz Siddiqui [facility] 10/01/2016 11:06:47 Social History Question Answer Notes LastModified by Organizat ion Details LastModified Time Tobacco Smoking Status Former Smoker pipe- quit in 1969 [facility] 11:09:30 Marital Status Information not available [...] Response Allergies/Hayfever Cancer Prostate Y Heart Attack (DE) Y Past Encounters Encounter ID Performer Location Encounter Start Date Encounter Closed Date Diagnosis/Indication Diagnosis SNOMED-CT Code Diagnosis ICD10 Code Diagnosis Note [id number] SIVA BARTLETT MD UROLOGY [facility] [address] [place] [id number] 10/01/2016 09:55:48 10/01/2016 15:19:38 Malignant neoplasm of prostate 979231667 C61 Pt's last PsA 0.1 a yr ago. Will repeat. Impotence 227670425 N52. 9 Discussed various alternativ es for tx including oral meds, vacuum device and IC injections . [id number] SIVA BARTLETT MD [facility]OLOG[facility] [address] [place] [address] 10/16/2017 14:00:29 10/18/2017 14:43:54 Malignant neoplasm of prostate 453693282 C61 Pt doing well after surgery and XRT for a PSA recurrence . PSA today. Impotence of organic origin 616797618 N52.9 rx for Sildenafil given today Increased frequency of urination 753893677 R35.0 Bladder scan 0 cc. Pt reassured he is emptying well. [id number] SIVA BARTLETT MD UROLOGY [facility] [address] [place] [address] 10/20/2018 13:30:15 10/22/2018 12:25:12 Carcinoma of prostate 775854848 C61 Pt with h/o perineal prostatect richie by Dr Lamb. XRT after PsA recurrence . Last PsA 0. PsA today. Impotence of organic origin 981203659 N52.9 rx for Sildenafil given today Increased frequency of urination 382608165 R35.0 Bladder scan 0 cc last yr. [...] ID Guarantor Name 10/20/2018 1 [place] Michael Catalan Benítez [id number] 1 [id number] Michael Catalan Jeyson 10/17/2018 2 [facility] [id number] Khushi Benítez [id number] Michael Catalan Jeyson Notes Date Note Type Note Provider Name [...] 2013. Path from his RPP showed bilateral [place] 3+4=7 cancer.He denies any urinary leakage but does have ED since his RPP. He has not been treated. SIVA BARTLETT MD [address] [place] [address], [address], [facility] 10/01/2016 13:16:50 10/16/2017 text/html 67 yr old [...] to cost. Denies leakage. SIVA BARTLETT MD [address] [place] [address] [place], [address], [facility] 10/18/2017 14:11:19 10/20/2018 text/html 68 yr old [...] the name of. It did not work. SIVA BARTLETT MD [facility] [place], [address], [facility] 10/20/2018 17:36:40
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
--- OUTSIDE RECORDS SUMMARY | 2025-05-03 08:37 | XMS_ITS | Data Portability ---
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 Plan of Treatment Reminders Order Date Submit Date Provider Last Modified By Organization Details Last Modified Time Details Appointments OV EST 15 2024 11:15A M Deshaun Nam MD Not available Not available Not available OV EST 15 2024 11:30A M Guero Boss NP Not available Not available Not available Lab urinalysi s, dipstick 2024 025 [email or web address] [facility], [address], [place], [address], 03/13/2025 11:45:29 PSA, serum or plasma 2024 025 [facility] (Registration ), [address] [place], [address], 03/13/2025 11:55:20 PSA, serum or plasma 2024 025 [facility] (Registration ), [address] [place], [address], 01/09/2025 13:42:19 Referral None recorded. Procedures bladder scan (PROC) 2024 025 [email or web address] [facility], [address], [place], [address], 03/13/2025 11:45:29 bladder scan (PROC) [address] [facility], [address], [place], [address], 01/09/2025 13:02:28 Surgeries None recorded. Imaging XR, kidney + ureter + bladder [address] (Registration ), [address], [place], [address], 01/09/2025 11:48:47 pharmacol ogic nuclear stress test [address], [address], [place], [address], 12/02/2024 10:23:59 US, echocardi ogram, transthor acic, complete, w/ color flow [address], [address], [place], [address], 11/18/2024 11:10:57 Medication Orders oxybutyni n chloride ER 10 mg tablet,ex tended release 24 hr 2024 025 [facility]armacy #[id number], [address] [place] [address], [address], 03/13/2025 11:59:22 tamsulosi n 0.4 mg capsule 2024 025 [facility]/Pharmacy #[id number], [address] [place], [address], 01/09/2025 13:01:51 oxybutyni n chloride ER 10 mg tablet,ex tended release 24 hr [address]/Pharmacy #[id number], [address] [place] [address], [address], 01/31/2025 14:13:14 Patient TargetsNo targets recorded. Patient InstructionsNo instructions recorded. Reason for Referral None Reported. Results Created Date Observation Date Name Description Value Unit Range Abnormal Flag Note LastModifiedBy Organization Detail LastModifiedTime 01/10/2001/09/2025 PROST ATE SPECI FIC AG (PSA) prostate specific Ag (PSA) <0.13 NG/mL 0-4.0 Not Available [facility] ([facility]) [address] [place], [address], 01/09/2025 13:42:19 01/10/20 25 01/09/2025 bladd er scan (PROC ) Calculated Residual Urine: 13cc Not Available [place] [address] [address] [facility] 100, [place], [address], 01/09/2025 13:02:16 03/13/20 25 03/13/2025 bladd er scan (PROC ) Calculated Residual Urine: 0ml Not Available [place] [address] [address] [facility] 100, [place], [address], 03/13/2025 11:38:24 03/13/20 25 03/13/2025 urina lysis , dipst ick Leukocytes (reference range) negati ve Not Available [place] [address] [address] [facility] 100, [place], [address], 03/13/2025 11:37:23 03/13/20 25 03/13/2025 urina lysis , dipst ick Nitrite (reference range:) negati ve Not Available [place] [address] [address] [facility] 100, [place], [address], 03/13/2025 11:37:23 03/13/20 25 03/13/2025 urina lysis , dipst ick Urobilinogen (reference range) 0.2 Not Available [place] [address] [address] [facility] 100, [place], [address], 03/13/2025 11:37:23 03/13/20 25 03/13/2025 urina lysis , dipst ick Protein (reference range) trace Not Available [facility] [place] [address] [address] [facility] 100, [place], [address], 03/13/2025 11:37:23 03/13/20 25 03/13/2025 urina lysis , dipst ick pH (reference range 5-8.5) 5.0 Not Available [facility] [place] [address] [address] [facility] 100, [place], [address], 03/13/2025 11:37:23 03/13/20 25 03/13/2025 urina lysis , dipst ick Blood (reference range:) negati ve Not Available [place] [address] [address] [facility] 100, [place], [address], 03/13/2025 11:37:23 03/13/20 25 03/13/2025 urina lysis , dipst ick Specific [place] (reference range) 1.025 Not Available [place] [address] [address] [facility] 100, [place], [address], 03/13/2025 11:37:23 03/13/20 25 03/13/2025 urina lysis , dipst ick Ketone (reference range) trace Not Available [facility] [place] [address] [address] [facility] 100, [place], [address], 03/13/2025 11:37:23 03/13/20 25 03/13/2025 urina lysis , dipst ick Bilirubin (reference range) negati ve Not Available [place] [address] [address] [facility] 100, [place], [address], 03/13/2025 11:37:23 03/13/20 25 03/13/2025 urina lysis , dipst ick Glucose (reference range) negati ve Not Available [facility] [address], [place], [address], 03/13/2025 11:37:23 03/13/20 25 03/13/2025 urina lysis , dipst ick Color (reference range: yellow-brown ) Yellow Not Available [facility] [address], [place], [address], 03/13/2025 11:37:23 11/16/19 25 11/11/2024 US, echoc ardio gram, trans thora cic, compl ete, w/ color flow [facility] [address] [place] [address] Phone: Fax: Name: AARON BENÍTEZ Exam Date: 025 : [birth year] Age 74 years Gender : M Access ion: [id number] Physic jonah: DESHAUN NAM ty: [facility] Ehsan ty HSV: Outpat ient Exam: ECHO W [...] is with a valve area 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 10cm, LVOT TVI=24 .2cm, Ao TVI=23 .8cm). The dimens ionles s index is 1.02. AV peak veloci ip=166 cm/sec . Tricus pid valve: The tricus [...] y authen ticate d by CYRIL Smith 2-05 12:41: 38 FREDA: 18.0mL /mA (16-28 ml/m^2 ) Deshaun Nam MD Electr onical ly signed by Dr. Deshaun aNm on 2024 at 12:41 PM Dictat ed By: DESHAUN NMA Transc ribed By: Transc ribed On: 11/16/19 12:41 PM Electr onical ly signed by: DESHAUN NAM 11/16/19 Thank you for referr AARON Wiseman to [facility] al. Legall y authen ticate d by CYRIL HARPER E 11-16 12:41: 38 CC'ed Logic: Orderi ng Provid er: CYRIL HARPER Attend ing Provid er: CYRIL HARPER Referr ing Provid er: CYRIL HARPER Admitt ing Provid er: CYRIL HARPER [facility] [address] [facility], [place], [address], 11/18/2024 11:10:56 11/21/19 25 11/11/2024 pharm acolo gic nucle ar stres s test Nuclea r Stress Test AARON BENÍTEZ [facility] 9 2 EXAM: HEART SPECT MULTI REST/S TRESS [id number] DATE OF EXAM: 2024 07:41: 15 [...] Restin g blood pressu re of 140/91 umu to maximu m 178/93 mmHg. Stress test [...] 54%. DICTAT ED BY: Deshaun Nam MD, FACC JT/MOD L DD: 2024 13:07: 46 DT: 2024 13:57: 01 /[id number] Electr onical ly Signed By: CYRIL Smith 11-21 11:53: 50 CC'ed Logic: Orderi ng Provid er: CYRIL HARPER Attend ing Provid er: CYRIL HARPER Referr ing Provid er: CYRIL HARPER Admitt ing Provid er: CYRIL HARPER [facility] [address] [place] [address], [address], 12/02/2024 10:23:59 01/11/20 25 01/09/2025 XR, abdom en, 1 view [facility] [address] [place] [address] Phone: Fax: Name: AARON BENÍTEZ Exam Date: 025 : [birth year] Age 74 years Gender : M Access ion: [id number] Physic jonah: MARIA T BOSS Facili ty: [facility] Facili ty HSV: Outpat ient Exam: ABD [...] Electr onical ly signed by: David Alexander Thank you for referr SHARON WisemanALD to [facility] al. Legall y authen ticate d by NIKKIE MEADOWS 0 01-09 12:40: 30 CC'ed Logic: Orderi ng Provid er: GERA KAURA L Attend ing Provid er: GERA KAURA L Admitt ing Provid er: GERA No [email or web address] [facility] [address] [place], [address], 01/10/2025 11:29:23 Result Notes Documentation Provider Name and Address Organization Details Recorded Time Pharmacologic Nuclear Stress Test : Nuclear Stress Test AARON BENÍTEZ [facility] 2 EXAM: HEART SPECT MULTI REST/STRESS [id number] DATE OF EXAM: 11/11/2024 07:41:15 NUCLEAR STRESS TEST PROVIDER: Deshaun Nam MD, FACC REQUESTING PHYSICIAN: Deshaun Nam MD, FACC. INDICATION: Chest pain. PROCEDURE: After informed consent, the patient underwent pharmacological stress test with Lexiscan protocol. Resting heart rate 75, umu to maximum 96 beats per minute. Resting blood pressure of 140/91 umu to maximum 178/93 mmHg. Stress test was stopped as per protocol. No significant symptoms with Lexiscan infusion. At rest, 10.99 mCi of technetium tetrofosmin was infused and rest SPECT images were obtained. At peak stress, 30.9 mCi of technetium tetrofosmin was infused and stress SPECT images were obtained. Gated SPECT images were obtained. FINDINGS: Baseline EKG showed normal sinus rhythm with no arrhythmia or ischemic EKG changes. Calculated EF of 54%. TID ratio 0.92. Review of the axial images showed inferior fixed defect with no reversibility suggestive of ischemia. Given normal inferior wall motion, probably diaphragmatic attenuation artifact. FINAL IMPRESSION: No evidence of myocardial ischemia. Inferior defect, possibly artifactual given normal inferior wall motion. Calculated EF 54%. DICTATED BY: Deshaun Nam MD, [facility] JT/MODL /[id number] Electronically Signed By: CYRIL Smith 2024-11-21 11:53:50 CC'ed Logic: Ordering Provider: CYRIL HARPER Attending Provider: CYRIL HARPER Referring Provider: CYRIL HARPER Admitting Provider: CYRIL HARPER Not Available [facility] 12/02/2024 10:23:59 Xr, Abdomen, 1 View : [place] [address] Name: AARON BENÍTEZ Exam Date: 01/09/2025 : 1950 Age 74 years Gender: M Physician: GUERO BOSS Facility: [facility] Facility HSV: Outpatient Exam: ABD KUB 1V XR ABDOMEN 1 VIEW (KUB) Reason For Study: kidney stone COMPARISON:01/06/2024 TECHNIQUE A supine view of the abdomen was obtained. FINDINGS Mild gastric distention. Constipation. Buya-yx-lxefohcd degenerative change in the SI joints hips and spine. Considerable disc space narrowing and DJD at L2-3. Surgical clips noted over the symphysis area. No definitive lytic or blastic lesions. No definite calculi. IMPRESSION: Constipation. Electronically signed by: David Alexander MD 01/10/2025 09:52 AM EDT Dictated By: David Alexander Transcribed By: Transcribed On: 01/09/2025 12:40 PM Electronically signed by: David Alexnader 01/09/2025 Thank you for referring AARON BENÍTEZ to [facility]. Legally authenticated by NIKKIE MEADOWS 2025-01-09 12:40:30 CC'ed Logic: Ordering Provider: GERA JACK Attending Provider: GERA JACK Admitting Provider: GERA Boss NP, S [address], [place], [address], [place] [facility] [place] 01/10/2025 11:29:23 Problems Name Problem SNOMED Code Status Onset Date Resolution Date Notes Provider Name and Address Organization Details Recorded Time Carcinoma of prostate 313367192 Active Prostate cancer Not Available [facility] 2 18:08:01 Hernia of anterior abdominal wall 027401812 Active Ventral hernia Not Available [facility] 2 18:08:02 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 Not Available [facility] 2 18:08:01 Hypertens adams disorder 92871444 Active 2012 Hypertensi on Not Available [facility] 2 18:08:02 Body mass index 30+ - obesity 420936167 Active 2017 Not Available [facility] 2 18:08:01 Hyperlipi demia 38184118 Active 2017 Not Available [facility] 2 18:08:02 Nodule of lung 342729521 Active 2019 Not Available [facility] 2 18:08:01 Paresthes ia 50584402 Active 2019 Not Available [facility] 2 18:08:01 Parkinson 's disease 18116625 Active 2021 Not Available [facility] 2 18:08:01 Chest pain 51900232 Active 2024 Deshaun Nam MD [address], [place], [address] , [place] [facility] [place] 5 13:14:01 Dyspnea 228443716 Active 2024 Deshaun Nam MD [address], [place], [address] , [facility] - [facility] [place] 5 13:14:05 Orthostat ic hypotensi on 35089084 Active 2024 Deshaun Nam MD [address], [place], [address] , [place] [facility] [place] 13:54:13 Problem Notes None recorded. Procedures Surgical History Date Name Laterality Status Provider Name and Address Organization Details Recorded Time 10/12/19 19 total shoulder replacement completed Mima Benítez DO [address], [place], [address], [facility] - [facility] [place] 01/25/2023 14:34:00 10/12/19 15 procedure on hand completed Mima Benítez DO [address], [place], [address], [facility] - [facility] [place] 01/25/2023 14:34:35 10/12/19 10 prostatectomy completed Mima Benítez DO [address], [place], [address], [facility] - [facility] [place] 01/25/2023 14:32:31 10/12/19 10 total knee replacement completed Mima Benítez DO [address], [place], [address], [facility] - [facility] [place] 01/25/2023 14:33:31 10/12/19 09 total knee replacement completed Mima Benítez DO [address] [place], [address], [facility] - [facility] [place] 01/25/2023 14:33:25 10/12/19 06 Appendectomy completed Mima Benítez DO [address], [place], [address], [facility] - [facility] [place] 01/25/2023 14:33:44 inguinal hernioplasty completed Mima Benítez DO [address], [place], [address], [facility] - [facility] [place] 01/25/2023 14:32:51 extracorporeal shockwave lithotripsy of urinary bladder completed Mima Benítez DO [address], [place], [address], [facility] - [facility] [place] 01/25/2023 14:34:59 Imaging Results None recorded. Procedure Notes None recorded. Medical Equipment None Reported. Allergies Allergen ID Allergen Name Allergen Category Reaction Reaction Severity Criticality Documentation Date Start Date Code Code System Note Provider Name and Address Organization Details Recorded Time 361928 colchicin e medicatio n Not available Not available Not available 10/26/2024 2683 RxNorm Dominga pascal, NARESH - [facility] [place] 5 13:03:44 134934 Norvasc medicatio n Not available Not available Not available 10/26/2024 25888 RxNorm Dominga Carlos pascal, NARESH - [facility] [place] 5 13:03:54 366693 aspirin medicatio n Not available Not available Not available 04/03/2025 1191 RxNorm Dominga pascal, NARESH AMIN [facility] [place] 5 13:09:28 48855 linacloti de medicatio n Not available Not available Not available 07/14/2022 07915 04 RxNorm React ion: hallu cinat ion, maynor ity: Unkno wn Not Available [facility] 2 02:55:50 Medications Name Sig Start Date Stop Date Status Note LastModified by Organization Details LastModified Time amoxicillin 500 mg capsule TAKE 1 CAPSULE BY MOUTH TWICE A DAY 04/03 completed Not Available Not Available Not Available atorvastati n 40 mg tablet 1 [...] nded release 24 hr Take 1 tablet twice a day by oral route for 30 days. 2024 active Not Available Not Available Not Avai lable benzonatate 200 mg capsule TAKE 1 CAPSULE BY MOUTH EVERY 8 HOURS NEEDED 04/03 completed Not Available Not Available Not Available hydrocodone 5 mg-acetamin ophen 325 mg [...] CAPSULE BY MOUTH EVERY 8 HOURS NEEDED 04/03 completed Not Available Not Available Not Available hydrocodone 7.5 mg-acetamin ophen 325 mg tablet TAKE 1 TABLET EVERY 4 TO 6 HOURS NEEDED FOR PAIN 08/26 completed Not Available Not Available Not Available lidocaine 5 % topical patch USE 1 PATCH EXTERNALL Y ONCE DAILY LEAVE ON MOST PAINFUL AREA FOR UP TO 12 HRS active Not Available Not Available No t Available nitroglycer in 0.4 mg sublingual tablet [...] blood by Pulse oximetry Heart rate Systolic And Diastolic Provider Name and Address Organization Details Last Updated DateTime 5 185.42 cm 31.1 kg/m2 991097. 8 g 97 % 97 % 97 /min 118/74 mm[Hg] Dominga INFANTE - [facility] [place] [facility] [place] 5 13:06:56 Date Recorded Body height Body mass index (BMI) Body weight Oxygen saturation Oxygen saturation in Arterial blood by Pulse oximetry Heart rate Systolic And Diastolic Provider Name and Address Organization Details Last Updated DateTime 5 185.42 cm 30.7 kg/m2 621252. 02 g 96 % 96 % 100 /min 118/72 mm[Hg] Dominga INFANTE [facility] [place] 5 13:16:28 Date Recorded Body height Body mass index (BMI) Body weight Body temperature Oxygen saturation Oxygen saturation in Arterial blood by Pulse oximetry Heart rate Systolic And Diastolic Provider Name and Address Organization Details Last Updated DateTime 5 185.42 cm 30.9 kg/m2 358517. 61 g 97.7 [degF] 100 % 100 % 70 /min 120/70 mm[Hg] Selene INFANTE [facility] [place] 5 11:46:49 Date Recorded Body height Body mass index (BMI) Body weight Systolic And Diastolic Provider Name and Address Organization Details Last Updated DateTime 03/13/2025 185.42 cm 30.8 kg/m2 808521.18 g 140/80 mm[Hg] Tess Ahnoten NARESH [facility] [place] 03/13/2025 11:37:13 Date Recorded Body height Body mass index (BMI) Body weight Oxygen saturation Oxygen saturation in Arterial blood by Pulse oximetry Heart rate Systolic And Diastolic Provider Name and Address Organization Details Last Updated DateTime 5 185.42 cm 30.3 kg/m2 726525. 25 g 95 % 95 % 82 /min 100/60 mm[Hg] Dominga INFANTE [facility] [place] 5 13:11:17 Social History Question Answer Notes LastModified by Organizat ion Details LastModified Time Tobacco Smoking Status Former Smoker Dominga Carlos pascal, [facility] [place] 10/26/2024 13:05:35 What Is Your Level Of Caffeine Consumption? Moderate Information not available 02/24/2023 When Did You Quit Smoking? 16+yearssinc elastcigaret te [email or web address] Information not available 10/26/2024 What Is Your Relationship Status? Live In House Information not available 02/24/2023 Are You Currently In School? No PhD Information not available 02/24/2023 Sex: Unknown Functional Status Question Answer Note LastModified by Organizat ion Details LastModified Time Do you use any illicit or recreational drugs? No [email or web address] Information not available 10/22/2022 What is your level of alcohol consumption? 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 Family History Relationship Description Onset Age of this Age Resolved Age Notes LastModified by Organization Details LastModified Time Mother Malignant tumor of breast [email or web address] Not available 2022 14:31:08 Father Coronary arterioscler osis [email or web address] Not available 2022 14:31:17 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 Condition Response Head Trauma/Injury Y Heart Attack (MS) Y Cancer Y Parkinson's Disease Y Ear or Hearing Problems Y Neurological Problems Y Immunizations Vaccine Type Date Status Note Provider Nam e and Address Organization Details Recorded Time Tdap 01/14/2016 completed Not Available [facility] 07/14/2022 03:02:27 Past Encounters Encounter ID Performer Location Encounter Start Date Encounter Closed Date Diagnosis/Indication Diagnosis SNOMED-CT Code Diagnosis ICD10 Code Diagnosis Note [id number] Guero Boss NP, S [facility] [address] [place] [address] 10/22/2022 08:12:09 10/22/2022 09:55:16 Ureteric stone 64792882 N20.1 CT scan report from reviewed with [...] 3 days before surgery, and bring a driver trainee. Risk of procedure discussed in detail today that includes but not limited to infection, bleeding, risk of injury to urinary tract, pain, anesthesia risk. Patient will be scheduled for surgery tomorrow with arrival time of 10:30 a.m. this was discussed with patient in detail today before leaving the clinic. Return to clinic will be determined once procedure has been done. Hydronephrosis 16744718 N13.30 History of malignant neoplasm of prostate 391156446 Z85.46 [id number] Guero Boss NP, S [facility] [address] [place] [address],[address] [place] [address] 10/28/2022 10:09:23 10/28/2022 11:39:04 Ureteric stone 01920674 N20.1 KUB today. KUB film reviewed results [...] procedure. Patient will need to bring a driver trainee. No aspirin or NSAIDs from this point on.Continu e Cefdinir 300mg bidContinu e Pyridium as needed for bladder spasms Carcinoma of prostate 25 5318366 C61 [id number] Guero Boss NP, S [facility] [address] [place] [address],[address] [place] [address] 11/05/2022 08:40:38 11/05/2022 09:34:48 Ureteric stone 86997141 N20.1 Stent removed via traction applied to [...] possible blood clot. Carcinoma of prostate 25 5949308 C61 Pain in limb 89840993 M7 9.609 Parkinson's disease 4904 9000 G20 [id number] Nam Fernández MD [facility] [address] [place] [address] 12/01/2022 13:27:48 12/01/2022 14:14:16 Carcinoma of prostate 962754524 C61 History of calculus of kidney 860698922 Z87.442 Ureteric stone 41448112 N20.1 [id number] Mima DO [facility] [address] [facility],[address] [place] [address] 02/24/2023 13:10:06 02/24/2023 13:53:15 Parkinson's disease 14691049 G20 Chronic condition that has progressed . [...] in the current dosing does not help. [id number] Mima DO [facility] [address] [facility],[address] [place] [address] 08/26/2023 10:54:59 08/26/2023 11:44:25 Parkinson's disease 09541921 G20.A2 Chronic condition that continues to progress. Will continue to titrate up on his rytary dosing. 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 He will call if any side effects when on the higher dose.He denies any current equipment or therapy needs. [id number] Guero Boss NP, S [facility] [address] [place] [address] 01/05/2024 14:43:12 01/05/2024 15:31:18 Carcinoma of prostate 051964585 C61 UA clearPVR 30ccPSA today, will call pt with resultsKUB , will call pt with resultsInc rease Tamsulosin to bidRTC in 3 months for f/u of Tamsulosin ttx History of calculus of kidney 282277732 Z87.442 Ureteric stone 29436732 N20.1 Nocturia 118102479 R35.1 Slowing of urinary stream 80239349 R39.12 [id number] DO REYNALDO Tomlinson [facility] [address] [facility],[address] [place] [address] 02/23/2024 10:54:30 02/23/2024 11:22:49 Parkinson's disease 20618367 G20.A2 Chronic condition that continues to progress. Will continue to titrate up on his rytary dosing. He will try tid dosing. He will call with an update in a few weeks. If this is not effective consider adding a dopamine agonist.He denies any current equipment or therapy needs.Fall precaution s reviewed with him today. [id number] Guero Boss NP, S [facility] [address] [place] [address],[address] [place] [address] 04/07/2024 10:58:44 04/07/2024 11:31:08 Carcinoma of prostate 141460602 C61 Slowing of urinary stream 45949596 R39.12 Continue Tamsulosin 0.4mg bidRTC in December 2024 for f/u with PSA and KUB Nocturia [id number] R35.1 History of calculus of kidney [id number] Z87.786 [id number] Deshaun Nam MD [address] [place] [address] 10/26/2024 12:52:44 10/26/2024 13:25:46 Chest pain [id number] R07.9 Given clinical presentati on and risk profile , will get stress test for ischemic evaluation and risk stratifica tion Dyspnea [id number] R06.00 Echo to evaluate EF, diastolic function, valves and pulmonary pressures Body mass index 30+ - obesity [id number] Z68.31 Low-carboh ydrate and low-fat diet Increase exercise to 30 minutes a day. Increase fruits and fresh vegetable intake and decrease processed foods and sugars [id number] Deshaun Nam MD [address] [place] [address] 12/05/2024 12:53:57 12/05/2024 13:41:52 Dyspnea [id number] R06.00 Cardiac evaluation was unremarkab le. Continue to clinically monitor for now. Body mass index 30+ - obesity [id number] Z68.31 Low-carboh ydrate and low-fat diet Increase exercise to 30 minutes a day. Increase fruits and fresh vegetable intake and decrease processed foods and sugars [id number] Guero Boss NP, S [facility] [place] [address] 01/09/2025 11:22:23 01/09/2025 12:06:30 Carcinoma of prostate [id number] C61 Pt unable to provide UAPVR 13mlPSA order provided to pt to have performed History of calculus of kidney [id number] Z87.442 KUB ordere provided to pt to have performed Poor stream of urine 162 723628 R39.12 Continue Tamsulosin 0.4mg bid Nocturia 390210648 R35.1 Urinary incontinence 165 016288 R32 Start Oxybutynin 10mg daily. discussed possible SEs of the medication [id number] Guero Boss NP, S [facility] [place] [address] 03/13/2025 11:13:39 03/13/2025 11:47:05 Carcinoma of prostate 348821646 C61 Nocturia 520800942 R35.1 Urinary incontinence 165 477628 R32 Continue Oxybutynin 10mg daily. dRTC in 6 months fo r f/u Poor stream of urine 162 567471 R39.12 Continue Tamsulosin 0.4mg bid [id number] Deshaun Nam MD [facility] NEW [address] [place] [address] 04/03/2025 13:04:54 04/03/2025 14:02:42 Dyspnea [id number] R06.00 cardiac evaluation has been unremarkab le Body mass index 30+ - obesity [id number] Z68.31 Low-carboh ydrate and low-fat diet Increase exercise to 30 minutes a day. Increase fruits and fresh vegetable intake and decrease processed foods and sugars Orthostati c hypotension 18446047 R42 Bp low today but generally higher. Increase fluid and salt intake and re-evaluat e in 6 weeks. Consider addition of Midodrine at next visit if continues to have symptoms.H e does have Parkinson' s and this may be contributi ng to autonomic dysfunctio nAnti orthostati c maneuvers discussed with the Health Concerns Section Related Observation LastModified by Organization Detai ls LastModified Time None Recorded Concern Status LastModified by Organization Details LastModified Time None Recorded Advance Directives Directive None Recorded Payers Insurance Date Sequence Insurance Name Policy Number Policy Ricardo Covered Member ID Ricardo Member ID Guarantor Name 04/01/2025 2 [place] [id number] Khushi Benítez [id number] Aaron Benítez 03/12/2025 1 [place] Aaron Benítez [id number] Aaron Benítez 10/26/2024 2 [place] [id number] Khushi Benítez [id number] Aaron Benítez Notes Date Note Type Note Provider Name and Address Organization Details Recorded Time 10/26/2024 text/html 74 M here for evaluation [...] / creatinine 23/1.1, LFTs normal, hemoglobin/hematocr it 1546, platelets 310Coronary CTA no pulmonary embolism, mild cardiomegaly no coronary calcification Deshaun Nam MD [address], [place], [address], [facility] [place] & [place] 10/26/2024 14:09:32 12/05/2024 text/html 74 M here [...] no coronary calcification Deshaun Nam MD [address], [place], [address], [facility] [place] 12/05/2024 13:39:06 01/09/2025 text/html 01/09/2025 74 yowm [...] a few days started experiencing urinary incontinence. [facility] medication was discontinued; however, he is still experiencing urinary incontinence. is wearing a depends and changing them 3-4 times per day. 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 Bp low today but generally higher.Also has Parkinsons's which may be contributing to orthostatic hypotension. + Obesity BMI >30+ parkinson's-He has severe Parkinson's and has resting tremors, was followed by Neurology Dr. Benítez.+Social history: Former, non smoker ECHO 10/2024Poor quality study.Normal LV size with normal function. The ejection fraction is 60-65%. Normal LV filling for age. Nuc 10/2024No evidence of myocardial ischemia.Inferior defect, possibly artifactual given normal inferior wall motion.Calculated EF 54%. EKG 10/22/2024 SR 69 normal axis normal intervals Labs ER 10/22/2024: Potassium 4.4, BUN / creatinine 23/1.1, LFTs normal, hemoglobin/hematocr it 15/46, platelets 310 Coronary CTA no pulmonary embolism, mild cardiomegaly no coronary calcification Deshaun Nam MD [address], [place], [address], [facility] - [facility] & [place] 04/04/2025 10:21:52
--- NOTE | 2025-05-03 08:49 | EXP.PAIN.SOA ---
[facility] Disclaimer: The information contained in this section may have been updated after the patient was seen, as this information can be updated by other users. 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 Parkinson disease Bladder stone Peripheral neuropathy Arthritis Surgical History History of total replacement of right shoulder joint H/O thumb surgery H/O hand surgery H/O elbow surgery H/O shoulder surgery Hx of appendectomy Family History Other Cancer Gout Social History Smoking Status: Never smoker alcohol intake: former substance use type: denies use current occupational status: other Travel in the last 8 weeks?: None household members: spouse housing: house PM Subjective & Objective Subjective Subjective:: Patient is a pleasant 74-year-old male who presents today for 6-week follow-up. Patient rates his pain today as 5 out of 10. He denies any new falls or injuries. He states he has not had any worsening occipital pain since his last occipital nerve blocks. He does state the pain today is more related to his low back. Patient denies any radiating symptoms into his legs. Patient did previously have his first lumbar medial branch block back in November however had a lot of pain with this procedure and did not feel like it did as well. Patient states he has had really good success with any of the injections we have done for his upper area. Patient states the low back symptoms are manageable. His Shawn has been reviewed and is appropriate. Review of Systems: General: No recent weight changes, no fever, no sleep disturbances Respiratory: No cough, no shortness of air, no recurring pulmonary infections Cardiovascular/peripheral vascular: No chest pain, no palpitations, no edema, no shortness of breath Gastrointestinal: No new onset incontinence, normal bowel movements reported Genitourinary: No new onset incontinence Musculoskeletal: Low back pain Psychiatric: [Normal mood/affect] Neurological: [Denies weakness in extremities], [denies balance issues] Pain at rest (0-10 scale): 5 Objective Objective:: Physical Exam: General: Alert and oriented x3, no acute distress, pleasant and cooperative Lungs: Respirations even and unlabored, symmetrical chest expansion Eyes: PERRL Musculoskeletal: Flexion and extension of lumbar [spine] somewhat guarded secondary to pain, [antalgic gait noted] Neurological: Speech clear, no gross sensory deficit Has patient had previous pain injection?: No Conservative treatment options previously tried: Home exercise plan Length of treatment: Longer than 12 weeks Meds Home Medications and Allergies Home Medications ?Medication ?Instructions ?Recorded ?Confirmed ?Type tamsulosin 0.4 mg capsule 0.4 mg PO BID URINATION 08/03/24 04/24/25 History pregabalin 75 mg capsule 75 mg PO BID #180 caps 02/06/25 04/24/25 Rx ketorolac 10 mg tablet 10 mg PO Q8H PRN pain #15 tabs 02/23/25 04/24/25 Rx tizanidine 2 mg tablet See Rx Instructions .Route 03/22/25 04/24/25 Rx .COMPLEX #60 tabs carbidopa ER 61.25 mg-levodopa 245 2 cap PO TID PARKINSONS #540 caps 04/24/25 04/24/25 Rx mg capsule,extended release (Rytary) entacapone 200 mg tablet 200 mg PO TID #90 tabs 04/24/25 04/24/25 Rx oxybutynin chloride 10 mg mg PO 04/24/25 04/24/25 History tablet,extended release 24 hr lidocaine 5 % topical patch See Rx Instructions .Route 04/26/25 Rx .COMPLEX #30 patches New Prescriptions to Start Prescriptions: Allergies Allergy/AdvReac Type Severity Reaction Status Date / Time aspirin (From [facility]) Allergy Verified 04/24/25 09:51 Assessment and Plan *Assessment and plan (1) Low back pain: Status: Chronic Qualifiers: Chronicity: chronic Back pain laterality: midline Sciatica presence: with sciatica Sciatica laterality: sciatica laterality unspecified Qualified Code(s): M54.40 - Lumbago with sciatica, unspecified side; G89.29 - Other chronic pain Category: Medical Code(s): M54.50 - Low back pain, unspecified Plan Patient does not require any additional injection therapy at this time. I will send in refills on his tizanidine to use as needed when the pain may increase. Patient will return to clinic in 3 months. Patient has been instructed to contact the clinic with any concerns before the next appointment. Dr. Lopez has reviewed this note and agrees with this plan of care. This note was dictated using voice recognition software and make contain errors or omissions. All injections are used with Lidocaine, Bupivacaine and dexamethasone. Occasionally urine drug screen is needed to verify patient's compliance with our office pain contract. This is ordered based off specific treatments related to chronic pain with the potential to abuse certain medications.
[2025-05-03 09:54] VITALS: BP 100/68; PULSE 79; RESP 14; O2SAT 94; BMI 29.0
== END 2025-05-03 23:59 | disposition home or self-care (01) ==
PROVIDERS: PCP Family Medicine; Visit Provider Nurse Practitioner Family
DX: M54.40 Lumbago with sciatica, unspecified side (principal); G89.29 Other chronic pain
CPT/HCPCS: 99212; G0463